=== PATIENT | female | born 1975 | race Native Hawaiian/Other Pacific Islander ===

== ENCOUNTER → 2018-03-09 | Outpatient (CLI) | payer OTHER ==
--- NOTE | 2018-03-09 18:08 | EXE ---
[place] [address] STRESS ECHOCARDIOGRAM Name: MILLERMARIEMARTHA Paz Room: [facility]#: [id number] Admission: 03/09/18 Attend Phys: Anna Castro, Discharge: Date of : 75 Date of Service: 03/09/18 1808 Report #: [id number] THIS REPORT FOR: //name// APPROVED REPORT Study performed: 03/09/2018 11:40:44 Exam: Stress Echocardiogram Indication: Chest pain Patient Location: Out-Patient Stress Nurse: Nga Mccormack RN Supervising Physician: Fercho Noyola MD Status: routine Ht: 5 ft 7 in HR: 77 bpm BP: 155/104 mmHg Medical History Cardiac Risk Factors: FHX of CAD, Tobacco History (Former), HTN Procedure The patient underwent an Exercise Stress Test using the Eagle Protocol. Blood pressure, heart rate, and EKG were monitored. An Echocardiogram was performed by insulator technician in four stages in quad fashion. At peak stress, four selected images were obtained and placed side by side with resting images for comparison. Stress Test Details Stress Test: Exercise stress testing was performed using a Eagle protocol. HR Resting HR: 77 bpm Max Heart Rate (APMHR): 178 bpm Max HR Achieved: 156 bpm Target HR (85% APMHR): 151 bpm % of APMHR: 87 Recovery HR: 96 bpm HR response to stress: Normal HR response to stress BP Resting BP: 155/104 mmHg Max BP: 220/100 mmHg Recovery BP: 152/102 mmHg ECG Resting ECG: Sinus Rhythm, [place] [address] STRESS ECHOCARDIOGRAM Name: EVERETT BHATT Room: [facility]#: [id number] Admission: 03/09/18 Attend Phys: Anna Castro, Discharge: Date of : 75 Date of Service: 03/09/18 1808 Report #: [id number] Stress ECG: Sinus Tachycardia ST Change: None Arrhythmia: None Recovery ECG: Sinus Rhythm, normal EKG Recovery ST Change: None Recovery Arrhythmia: None Clinical Reason for Termination: Maximal effort, Dyspnea Exercise duration: 7 min 17 sec Highest Stage Achieved: Stage 3: 3.4 mph at 14% grade. Exercise capacity: 9.01 METs The patient tolerated standard Eagle protocol exercise without significant symptoms. Stress ECG Conclusion Baseline 12-lead EKG showed sinus rhythm without significant ST or T wave abnormality. EKGs obtained during and post exercise showed sinus rhythm and sinus tachycardia with no significant STsegment or T wave changes when compared baseline. There were no stress-induced arrhythmias. Pre-Stress Echo The resting Echocardiogram showed normal left ventricular contractility with an estimated Ejection Fraction of about 60-65%. Post-Stress Echo The stress Echocardiogram showed normal left ventricular contractility with an estimated Ejection Fraction of about >70%. Clinical No clinical or ECG evidence for ischemia. Conclusion Clinical Response: Non-ischemic Exercise Capacity: Average Stress ECG Response: Non-ischemic Stress Echo Images: Non-ischemic The left ventricle is normal in size and wall thickness in both the rest and stress images. Other Information Study Quality: Good <Conclusion> [place] [address] STRESS ECHOCARDIOGRAM Name: EVERETT BHATT Brandi Room: [facility]#: [id number] Admission: 03/09/18 Attend Phys: Anna Castro, Discharge: Date of : 75 Date of Service: 03/09/181807 Report #: [id number] The left ventricle is normal in size and wall thickness in both the rest and stress images. <ELECTRONICALLY SIGNED> By: Fercho Noyola MD, FACC 03/09/181807 07 07 Fercho Noyola MD, FACC /INF
== END ==
LOC: M.CRD 10:53
DX: I10 Essential (primary) hypertension (principal); R07.9 Chest pain, unspecified; E66.01 Morbid (severe) obesity due to excess calories; I49.3 Ventricular premature depolarization; Z76.89 Persons encountering health services in other specified circumstances

== ENCOUNTER 2020-05-02 09:50 | Inpatient (IN) | payer OTHER, MEDICAID ==
[~2020-05-02] VITALS: Ht 170.2 cm; Wt 125.8 kg
[2020-05-02] VITALS (8 sets, daily range): BP systolic 94–124; BP diastolic 46–65
[2020-05-02] MEDS ORDERED: NORVASC5 M1 PO (10:09)
[2020-05-02] MEDS ORDERED: LOSARTAN-HCTZ1 EAC3 PO (10:09)
[2020-05-02 10:29] LABS: HEMATOCRIT 36.8 % (37.0-47.0); HEMOGLOBIN 12.5 gm/dL (12.0-15.0); MCH 28.9 pg (26.0-34.0); MPV 7.1 fl. (7.2-11.1); NUCLEATED RBCS 0 /100WBC; PLATELET COUNT* 371 thou/uL (150-400); RBC 4.33 mil/uL (4.20-5.00); RDW-CV 13.3 % (10.5-14.5); WBC 9.2 thou/uL (4.0-11.0)
[2020-05-02 10:37] LABS: CALCIUM 8.1 mg/dL (8.5-10.1); CREATININE 1.3 mg/dL (0.6-1.3)
[2020-05-02 10:48] LABS: ALBUMIN 2.9 g/dL (3.4-5.0); TOTAL BILIRUBIN 0.6 mg/dL (<0.1-1.0)
[2020-05-02 10:49] LABS: POTASSIUM 2.8 mmol/L (3.5-5.1)
[2020-05-02 10:52] LABS: ABSOLUTE LYMPHOCYTES 0.2 thou/uL (0.8-5.3); ABSOLUTE MONOCYTES 0.2 thou/uL (0.0-1.2); ABSOLUTE NEUTROPHILS 8.8 thou/uL (1.6-8.1); ANISOCYTOSIS 1+; PLATELET ESTIMATE ADEQUATE; POIKILOCYTOSIS 1+
[2020-05-02 14:24] LABS: CALCIUM 7.8 mg/dL (8.5-10.1); CREATININE 1.3 mg/dL (0.6-1.3)
[2020-05-02 14:27] LABS: MAGNESIUM 2.4 mg/dL (1.8-2.4); PHOSPHORUS* 3.5 mg/dL (2.5-4.9)
[2020-05-02 15:08] LABS: URINE BILIRUBIN NEGATIVE (Negative); URINE BLOOD 3+ (Negative); URINE CLARITY CLEAR; URINE COLOR YELLOW; URINE GLUCOSE-RANDOM NEGATIVE (Negative); URINE KETONES NEGATIVE (Negative); URINE LEUKOCYTES 1+ (Negative); URINE NITRITE NEGATIVE (Negative); URINE PROTEIN NEGATIVE (Negative); URINE UROBILINOGEN 0.2 E.U./dl (0.2-1.0)
[2020-05-02 15:19] LABS: SQUAMOUS >10 Many /LPF (0-3)
[2020-05-02 15:20] LABS: BACTERIA >30 Many /HPF (None Seen); URINE RBC 3-10 Few /HPF (0-2); URINE WBC 0-5 Rare /HPF (0-5)
[2020-05-02 15:21] LABS: CASTS None Seen /LPF (None Seen); CRYSTALS None Seen /LPF (None Seen); MUCUS None Seen strn/LPF (None Seen)
--- NOTE | 2020-05-02 17:14 | EKG ---
[place] [address] ELECTROCARDIOGRAM REPORT Name: EVERETT BHATT Room: [address] ADM IN ..#: [id number] Admission: 05/02/20 Attend Phys: Mayuri Keller Discharge: Date of : 75 Date of Service: 05/02/20 1042 Report #: [id number] THIS REPORT FOR: //name// [facility] ED Test Date: 2020-05-02 Test Time: 10:42:34 Pat Name: EVERETT BHATT Department: Room: [facility] Gender: F Purchasing And Fiscal Clerk: : 1975 Requested By: Fabian Vail Order Number: [id number] MD: Fercho Noyola Measurements Intervals [place] Rate: 98 P: 56 ID: [id number] QRS: 28 QRSD: 106 T: 67 QT: 369 QTc: 472 Interpretive Statements Sinus rhythm Baseline wander in lead(s) II,III,aVF,V3 No previous ECG available for comparison Electronically Signed On 05-02-2020 17:14:34 QC ANALYST by Fercho Noyola [email or web address] <ELECTRONICALLY SIGNED> By: Fercho Noyola MD, FACC 05/02/20 1714 1042 1042 Fercho Noyola MD, FACC /EPI
[2020-05-03 04:00] VITALS: BP 115/70
[2020-05-03 08:30] VITALS: BP 99/59
[2020-05-03 11:25] VITALS: BP 86/45
[2020-05-03 11:41] LABS: ABSOLUTE LYMPHOCYTES 0.5 thou/uL (0.8-5.3); ABSOLUTE MONOCYTES 0.4 thou/uL (0.0-1.2); ABSOLUTE NEUTROPHILS 8.3 thou/uL (1.6-8.1); BASOPHILS 0.1 %; HEMATOCRIT 32.8 % (37.0-47.0); HEMOGLOBIN 10.9 gm/dL (12.0-15.0); LYMPHOCYTES 5.6 %; MCH 28.5 pg (26.0-34.0); MCHC 33.1 g/dL (28.0-37.0); MCV 86.1 fL (80.0-100.0); MONOCYTES 4.3 %; NUCLEATED RBCS 0 /100WBC; PLATELET COUNT* 412 thou/uL (150-400); RBC 3.81 mil/uL (4.20-5.00); RDW-CV 13.4 % (10.5-14.5); WBC 9.2 thou/uL (4.0-11.0)
[2020-05-03 12:06] LABS: ALBUMIN 2.4 g/dL (3.4-5.0); CALCIUM 7.7 mg/dL (8.5-10.1); CREATININE 1.4 mg/dL (0.6-1.3); POTASSIUM 3.9 mmol/L (3.5-5.1); TOTAL BILIRUBIN 0.3 mg/dL (<0.1-1.0); TOTAL PROTEIN 7.1 g/dL (6.4-8.2)
[2020-05-03 15:58] VITALS: BP 105/55
[2020-05-03 20:00] VITALS: BP 101/44
[2020-05-04] VITALS: BP 108/46
[2020-05-04 04:00] VITALS: BP 12/56; BP 125/56
[2020-05-04 05:21] LABS: BE -5.9 mmol/L (-2 to +3); PO2 81.7 mmHg (75.0-100.0); pH 7.333 (7.340-7.450)
[2020-05-04 05:34] LABS: HEMATOCRIT 33.8 % (37.0-47.0); HEMOGLOBIN 11.1 gm/dL (12.0-15.0); MCH 28.3 pg (26.0-34.0); MCHC 32.8 g/dL (28.0-37.0); MPV 7.1 fl. (7.2-11.1); RBC 3.93 mil/uL (4.20-5.00); RDW-CV 13.4 % (10.5-14.5); WBC 10.2 thou/uL (4.0-11.0)
[2020-05-04 05:45] LABS: ALBUMIN 2.5 g/dL (3.4-5.0); CALCIUM 7.8 mg/dL (8.5-10.1); CREATININE 1.1 mg/dL (0.6-1.3); POTASSIUM 4.1 mmol/L (3.5-5.1); TOTAL BILIRUBIN 0.3 mg/dL (<0.1-1.0); TOTAL PROTEIN 7.2 g/dL (6.4-8.2)
[2020-05-04 09:00] VITALS: BP 110/57
[2020-05-04 12:23] VITALS: BP 127/58
[2020-05-04 16:02] VITALS: BP 145/71
[2020-05-04 20:10] VITALS: BP 113/56
[2020-05-05] VITALS: BP 124/62
[2020-05-05 05:00] VITALS: BP 117/65
[2020-05-05 07:50] LABS: HEMATOCRIT 34.5 % (37.0-47.0); HEMOGLOBIN 11.2 gm/dL (12.0-15.0); MCH 27.9 pg (26.0-34.0); MCHC 32.4 g/dL (28.0-37.0); MCV 86.4 fL (80.0-100.0); MPV 6.4 fl. (7.2-11.1); PLATELET COUNT* 499 thou/uL (150-400); RBC 3.99 mil/uL (4.20-5.00); RDW-CV 13.1 % (10.5-14.5); WBC 7.5 thou/uL (4.0-11.0)
[2020-05-05 08:41] LABS: ALBUMIN 2.4 g/dL (3.4-5.0); CALCIUM 7.7 mg/dL (8.5-10.1); CREATININE 0.9 mg/dL (0.6-1.3); MAGNESIUM 2.7 mg/dL (1.8-2.4); POTASSIUM 3.8 mmol/L (3.5-5.1); TOTAL BILIRUBIN 0.3 mg/dL (<0.1-1.0)
[2020-05-05 15:02] VITALS: BP 133/77
[2020-05-05 15:51] LABS: ABSOLUTE LYMPHOCYTES 0.7 thou/uL (0.8-5.3); ABSOLUTE MONOCYTES 0.1 thou/uL (0.0-1.2); ABSOLUTE NEUTROPHILS 6.8 thou/uL (1.6-8.1)
[2020-05-05 15:52] LABS: PLATELET ESTIMATE INCREASED
[2020-05-05 19:24] VITALS: BP 139/92
[2020-05-05 20:20] VITALS: BP 150/90
[2020-05-06] VITALS (102 sets, daily range): BP systolic 54–191; BP diastolic 20–107
[2020-05-06 11:05] LABS: PCO2 35.2 mmHg (35.0-45.0); PO2 63.2 mmHg (75.0-100.0); pH 7.398 (7.340-7.450)
[2020-05-06 16:42] LABS: BE -5.1 mmol/L (-2 to +3); PCO2 46.8 mmHg (35.0-45.0); PO2 80.6 mmHg (75.0-100.0)
[2020-05-06 16:46] LABS: pH 7.281 (7.340-7.450)
[2020-05-06 17:19] LABS: ABSOLUTE LYMPHOCYTES 0.3 thou/uL (0.8-5.3); ABSOLUTE MONOCYTES 0.3 thou/uL (0.0-1.2); ABSOLUTE NEUTROPHILS 9.9 thou/uL (1.6-8.1); BASOPHILS 0.2 %; EOSINOPHILS 0.1 %; HEMOGLOBIN 11.1 gm/dL (12.0-15.0); LYMPHOCYTES 2.9 %; MCH 28.5 pg (26.0-34.0); MCHC 32.6 g/dL (28.0-37.0); MCV 87.2 fL (80.0-100.0); MONOCYTES 2.6 %; MPV 6.7 fl. (7.2-11.1); NUCLEATED RBCS 0 /100WBC; POLYS 94.2 %; RBC 3.91 mil/uL (4.20-5.00); RDW-CV 13.5 % (10.5-14.5); WBC 10.5 thou/uL (4.0-11.0)
[2020-05-06 17:20] LABS: PLATELET COUNT* 303 thou/uL (150-400)
[2020-05-06 17:38] LABS: ALBUMIN 2.1 g/dL (3.4-5.0); CALCIUM 7.2 mg/dL (8.5-10.1); POTASSIUM 3.7 mmol/L (3.5-5.1); TOTAL BILIRUBIN 0.7 mg/dL (<0.1-1.0); TOTAL PROTEIN 6.4 g/dL (6.4-8.2)
[2020-05-06 20:02] LABS: BE -5.2 mmol/L (-2 to +3); PCO2 48.4 mmHg (35.0-45.0); PO2 76.2 mmHg (75.0-100.0)
[2020-05-06 20:04] LABS: pH 7.272 (7.340-7.450)
[2020-05-06 21:18] LABS: BE -3.6 mmol/L (-2 to +3); PCO2 44.1 mmHg (35.0-45.0); PO2 77.1 mmHg (75.0-100.0); pH 7.323 (7.340-7.450)
[2020-05-07] VITALS (30 sets, daily range): BP systolic 105–175; BP diastolic 33–104
[2020-05-07 10:07] LABS: HEMATOCRIT 36.1 % (37.0-47.0); HEMOGLOBIN 11.7 gm/dL (12.0-15.0); MCH 28.4 pg (26.0-34.0); MCHC 32.4 g/dL (28.0-37.0); MCV 87.6 fL (80.0-100.0); MPV 6.6 fl. (7.2-11.1); RBC 4.12 mil/uL (4.20-5.00); RDW-CV 13.6 % (10.5-14.5)
[2020-05-07 10:17] LABS: CALCIUM 7.6 mg/dL (8.5-10.1); CREATININE 1.1 mg/dL (0.6-1.3); POTASSIUM 4.2 mmol/L (3.5-5.1)
[2020-05-07 11:36] LABS: BE 0 mmol/L (-2 to +3); PCO2 40.3 mmHg (35.0-45.0); PO2 103.3 mmHg (75.0-100.0); pH 7.405 (7.340-7.450)
[2020-05-07 17:06] LABS: BE 1.9 mmol/L (-2 to +3); PCO2 40.5 mmHg (35.0-45.0)
--- NOTE | 2020-05-07 17:26 | 2DMMODE ---
[place] [address] 2 D/M-MODE ECHOCARDIOGRAM Name: EVERETT BHATT Room: [address] IN [facility]#: [id number] Admission: 05/02/20 Attend Phys: Mayuri Keller Discharge: Date of : 75 Date of Service: 05/07/20 1726 Report #: [id number] THIS REPORT FOR: cc: Anna Castro DNP, Leopoldine DNP Holkins, John M. MD [facility] ~ APPROVED REPORT Study performed: 05/07/2020 14:28:05 EXAM: Comprehensive 2D, Doppler, and color-flow Echocardiogram Patient Location: In-Patient Room #: [facility] [place] Status: routine BSA: 2.46 HR: 79 bpm BP: 147/46 mmHg Rhythm: NSR Other Information Study Quality: Good Indications Dyspnea 2D Dimensions IVSd: 13.57 (7-11mm) LVOT Diam: 21.77 (18-24mm) LVDd: 40.99 mm PWd: 13.85 (7-11mm) Ascending Ao: 31.98 (22-36mm) LVDs: 28.86 (25-40mm) Aortic Root: 33.82 mm Volumes Left Atrial Volume (Systole) LA ESV Index: 12.80 mL/m2 Aortic Valve AoV Peak Carlos.: 1.55 m/s AO Peak Gr.: 9.64 mmHg LVOT Max P.59 mmHg AO Mean Gr.: 5.38 mmHg LVOT Mean P.51 mmHg LVOT Max V: 1.07 m/s AO V2 VTI: 22.53 cm LVOT Mean V: 0.74 m/s LAZARA (VTI): 2.73 cm2 LVOT V1 VTI: 16.52 [place] [address] 2 D/M-MODE ECHOCARDIOGRAM Name: EVERETT BHATT Room: [address]#: [id number] Admission: 05/02/20 Attend Phys: Mayuri Keller Discharge: Date of : 75 Date of Service: 05/07/20 1726 Report #: [id number] Mitral Valve E/A Ratio: 1.52 MV Decel. Time: 250.70 ms MV E Max Carlos.: 0.76 m/s MV PHT: 72.70 ms MVA (PHT): 3.03 cm2 TDI E/Lateral E': 7.60 E/Medial E': 8.44 Medial E' Carlos.: 0.09 m/s Lateral E' Carlos.: 0.10 m/s Pulmonary Valve PV Peak Carlos.: 1.06 m/s PV Peak Gr.: 4.47 mmHg Tricuspid Valve RAP Estimate: 5.00 mmHg TR Peak Gr.: 25.93 mmHg RVSP: 30.00 mmHg PA Pressure: 30.00 mmHg Left Ventricle The left ventricle is normal size. There is normal LV segmental wall motion. Borderline concentric left ventricular hypertrophy. Left ventricular systolic function is normal. The left ventricular ejection fraction is within the normal range. LVEF is 60-65%. This study is not technically sufficient to allow evaluation of the LV diastolic function. Right Ventricle Right ventricle is mildly dilated. The right ventricular systolic function is normal. Atria The left atrium size is normal. Right atrium is mildly dilated. Aortic Valve The aortic valve is normal in structure. No aortic regurgitation is present. There is no aortic valvular stenosis. Mitral Valve The mitral valve is normal in structure. There is no mitral valve regurgitation noted. No evidence of mitral valve stenosis. Tricuspid Valve The tricuspid valve is normal [place] [address] 2 D/M-MODE ECHOCARDIOGRAM Name: MARIE BHATTYOLAWarren Brandi Room: [address]#: [id number] Admission: 05/02/20 Attend Phys: Mayuri Keller Discharge: Date of : 75 Date of Service: 05/07/20 1726 Report #: [id number] regurgitation. Borderline pulmonary hypertension. Pulmonic Valve The pulmonary valve is normal in structure. There is no pulmonic valvular regurgitation. Great Vessels The aortic root is normal in size. IVC is normal in size and collapses >50% with inspiration. Pericardium There is no pericardial effusion. <Conclusion> The left ventricle is normal size. Borderline concentric left ventricular hypertrophy. Left ventricular systolic function is normal. The left ventricular ejection fraction is within the normal range. LVEF is 60-65%. Right ventricle is mildly dilated. The left atrium size is normal. Right atrium is mildly dilated. The aortic valve is normal in structure. The mitral valve is normal in structure. The tricuspid valve is normal in structure. Mild tricuspid regurgitation. Borderline pulmonary hypertension. IVC is normal in size and collapses >50% with inspiration. There is no pericardial effusion. There is normal LV segmental wall motion. <ELECTRONICALLY SIGNED> By: Judd Sales MD, FACC 05/07/201725 25 25 Judd Sales MD, FACC /INF
[2020-05-07 18:11] LABS: CALCIUM 7.2 mg/dL (8.5-10.1); CREATININE 1.4 mg/dL (0.6-1.3); MAGNESIUM 2.4 mg/dL (1.8-2.4); POTASSIUM 3.8 mmol/L (3.5-5.1)
[2020-05-08] VITALS (29 sets, daily range): BP systolic 85–135; BP diastolic 34–55
[2020-05-08 05:02] LABS: HEMATOCRIT 32.3 % (37.0-47.0); HEMOGLOBIN 10.6 gm/dL (12.0-15.0); MCH 28.7 pg (26.0-34.0); MCHC 32.8 g/dL (28.0-37.0); MCV 87.7 fL (80.0-100.0); MPV 7.9 fl. (7.2-11.1); NUCLEATED RBCS 0 /100WBC; PLATELET COUNT* 231 thou/uL (150-400); RBC 3.68 mil/uL (4.20-5.00); RDW-CV 13.6 % (10.5-14.5); WBC 10.5 thou/uL (4.0-11.0)
[2020-05-08 05:17] LABS: ALBUMIN 2.1 g/dL (3.4-5.0); CREATININE 1.9 mg/dL (0.6-1.3); MAGNESIUM 2.5 mg/dL (1.8-2.4); POTASSIUM 3.6 mmol/L (3.5-5.1); TOTAL BILIRUBIN 0.4 mg/dL (<0.1-1.0)
[2020-05-08 05:22] LABS: PHOSPHORUS* 2.7 mg/dL (2.5-4.9)
[2020-05-08 07:14] LABS: ABSOLUTE LYMPHOCYTES 0.5 thou/uL (0.8-5.3); PLATELET ESTIMATE ADEQUATE
[2020-05-08 08:30] LABS: BE -0.1 mmol/L (-2 to +3); pH 7.335 (7.340-7.450)
[2020-05-08 08:32] LABS: PCO2 50.3 mmHg (35.0-45.0)
[2020-05-08 13:08] LABS: URINE BILIRUBIN NEGATIVE (Negative); URINE BLOOD NEGATIVE (Negative); URINE CLARITY CLEAR; URINE COLOR YELLOW; URINE GLUCOSE-RANDOM NEGATIVE (Negative); URINE KETONES NEGATIVE (Negative); URINE LEUKOCYTES-REFLEX NEGATIVE (Negative); URINE NITRITE-REFLEX NEGATIVE (Negative); URINE PROTEIN TRACE (Negative); URINE UROBILINOGEN 0.2 E.U./dl (0.2-1.0)
[2020-05-08 17:32] LABS: BE -1.4 mmol/L (-2 to +3); PCO2 47.7 mmHg (35.0-45.0); PO2 87.1 mmHg (75.0-100.0); pH 7.332 (7.340-7.450)
[2020-05-08 18:05] LABS: CALCIUM 7.5 mg/dL (8.5-10.1); CREATININE 1.3 mg/dL (0.6-1.3); MAGNESIUM 2.7 mg/dL (1.8-2.4)
[2020-05-09] VITALS (20 sets, daily range): BP systolic 124–165; BP diastolic 52–77
[2020-05-09 05:31] LABS: ABSOLUTE LYMPHOCYTES 0.3 thou/uL (0.8-5.3); ABSOLUTE MONOCYTES 0.5 thou/uL (0.0-1.2); ABSOLUTE NEUTROPHILS 9.3 thou/uL (1.6-8.1); BASOPHILS 0.5 %; HEMATOCRIT 30.4 % (37.0-47.0); LYMPHOCYTES 2.5 %; MCH 28.7 pg (26.0-34.0); MCHC 32.9 g/dL (28.0-37.0); MCV 87.4 fL (80.0-100.0); MONOCYTES 5.3 %; MPV 7.8 fl. (7.2-11.1); NUCLEATED RBCS 0 /100WBC; PLATELET COUNT* 196 thou/uL (150-400); POLYS 91.7 %; RBC 3.48 mil/uL (4.20-5.00); WBC 10.2 thou/uL (4.0-11.0)
[2020-05-09 05:57] LABS: ALBUMIN 2.2 g/dL (3.4-5.0); CALCIUM 8.1 mg/dL (8.5-10.1); CREATININE 1.1 mg/dL (0.6-1.3); POTASSIUM 4.3 mmol/L (3.5-5.1); TOTAL BILIRUBIN 0.4 mg/dL (<0.1-1.0); TOTAL PROTEIN 5.9 g/dL (6.4-8.2)
[2020-05-09 08:25] LABS: BE 2.6 mmol/L (-2 to +3); PCO2 49.1 mmHg (35.0-45.0); PO2 70.2 mmHg (75.0-100.0); pH 7.379 (7.340-7.450)
[2020-05-09 17:26] LABS: CALCIUM 7.6 mg/dL (8.5-10.1); CREATININE 1.2 mg/dL (0.6-1.3); MAGNESIUM 2.5 mg/dL (1.8-2.4); POTASSIUM 4.6 mmol/L (3.5-5.1)
[2020-05-10] VITALS (39 sets, daily range): BP systolic 143–223; BP diastolic 59–112
[2020-05-10 05:24] LABS: ABSOLUTE LYMPHOCYTES 0.3 thou/uL (0.8-5.3); ABSOLUTE MONOCYTES 0.7 thou/uL (0.0-1.2); ABSOLUTE NEUTROPHILS 10.7 thou/uL (1.6-8.1); BASOPHILS 0.3 %; HEMATOCRIT 30.2 % (37.0-47.0); HEMOGLOBIN 9.8 gm/dL (12.0-15.0); LYMPHOCYTES 2.4 %; MCH 28.5 pg (26.0-34.0); MCHC 32.4 g/dL (28.0-37.0); MONOCYTES 5.8 %; MPV 8.8 fl. (7.2-11.1); NUCLEATED RBCS 0 /100WBC; PLATELET COUNT* 197 thou/uL (150-400); POLYS 91.5 %; RBC 3.44 mil/uL (4.20-5.00); RDW-CV 13.7 % (10.5-14.5); WBC 11.7 thou/uL (4.0-11.0)
[2020-05-10 05:37] LABS: PHOSPHORUS* 3.1 mg/dL (2.5-4.9)
[2020-05-10 05:42] LABS: ALBUMIN 2.4 g/dL (3.4-5.0); CALCIUM 8.3 mg/dL (8.5-10.1); CREATININE 1.2 mg/dL (0.6-1.3); MAGNESIUM 2.9 mg/dL (1.8-2.4); POTASSIUM 4.3 mmol/L (3.5-5.1); TOTAL BILIRUBIN 0.5 mg/dL (<0.1-1.0)
[2020-05-10 08:06] LABS: BE 0.3 mmol/L (-2 to +3); PCO2 40.3 mmHg (35.0-45.0)
[2020-05-10 17:29] LABS: BE 2.3 mmol/L (-2 to +3); PCO2 35.2 mmHg (35.0-45.0); PO2 74.3 mmHg (75.0-100.0)
[2020-05-10 18:03] LABS: POTASSIUM 4.3 mmol/L (3.5-5.1)
[2020-05-11] VITALS (35 sets, daily range): BP systolic 140–189; BP diastolic 47–93
[2020-05-11 03:29] LABS: ABSOLUTE BASOPHILS 0.1 thou/uL (0.0-0.2); ABSOLUTE LYMPHOCYTES 0.2 thou/uL (0.8-5.3); ABSOLUTE MONOCYTES 0.7 thou/uL (0.0-1.2); ABSOLUTE NEUTROPHILS 9.5 thou/uL (1.6-8.1); BASOPHILS 1.1 %; HEMATOCRIT 34.2 % (37.0-47.0); HEMOGLOBIN 11.2 gm/dL (12.0-15.0); LYMPHOCYTES 1.9 %; MCH 28.6 pg (26.0-34.0); MCHC 32.8 g/dL (28.0-37.0); MONOCYTES 6.4 %; MPV 8.4 fl. (7.2-11.1); NUCLEATED RBCS 0 /100WBC; PLATELET COUNT* 204 thou/uL (150-400); POLYS 90.6 %; RBC 3.93 mil/uL (4.20-5.00); RDW-CV 13.3 % (10.5-14.5); WBC 10.5 thou/uL (4.0-11.0)
[2020-05-11 03:48] LABS: PHOSPHORUS* 3.6 mg/dL (2.5-4.9)
[2020-05-11 03:53] LABS: ALBUMIN 2.7 g/dL (3.4-5.0); CALCIUM 8.2 mg/dL (8.5-10.1); CREATININE 1.1 mg/dL (0.6-1.3); MAGNESIUM 2.6 mg/dL (1.8-2.4); POTASSIUM 4.3 mmol/L (3.5-5.1); TOTAL BILIRUBIN 0.7 mg/dL (<0.1-1.0); TOTAL PROTEIN 6.3 g/dL (6.4-8.2)
[2020-05-11 08:10] LABS: BE 5.1 mmol/L (-2 to +3); PCO2 37.1 mmHg (35.0-45.0); pH 7.501 (7.340-7.450)
[2020-05-11 08:17] LABS: PO2 58.7 mmHg (75.0-100.0)
[2020-05-11 16:43] LABS: CREATININE 0.9 mg/dL (0.6-1.3); POTASSIUM 4.5 mmol/L (3.5-5.1)
[2020-05-11 16:57] LABS: BE 6.1 mmol/L (-2 to +3); PCO2 38.8 mmHg (35.0-45.0); pH 7.501 (7.340-7.450)
[2020-05-12] VITALS (47 sets, daily range): BP systolic 123–184; BP diastolic 52–88
[2020-05-12 04:45] LABS: HEMOGLOBIN 11.6 gm/dL (12.0-15.0); MCHC 32.1 g/dL (28.0-37.0); MCV 87.4 fL (80.0-100.0); MPV 8.7 fl. (7.2-11.1); NUCLEATED RBCS 0 /100WBC; PLATELET COUNT* 235 thou/uL (150-400); RBC 4.12 mil/uL (4.20-5.00); RDW-CV 13.5 % (10.5-14.5); WBC 9.4 thou/uL (4.0-11.0)
[2020-05-12 05:14] LABS: ALBUMIN 2.6 g/dL (3.4-5.0); CALCIUM 7.8 mg/dL (8.5-10.1); CREATININE 0.9 mg/dL (0.6-1.3); MAGNESIUM 2.5 mg/dL (1.8-2.4); POTASSIUM 4.8 mmol/L (3.5-5.1); TOTAL BILIRUBIN 0.7 mg/dL (<0.1-1.0); TOTAL PROTEIN 6.4 g/dL (6.4-8.2)
[2020-05-12 05:53] LABS: PHOSPHORUS* 3.8 mg/dL (2.5-4.9)
[2020-05-12 06:38] LABS: ABSOLUTE LYMPHOCYTES 0.6 thou/uL (0.8-5.3); ABSOLUTE MONOCYTES 0.4 thou/uL (0.0-1.2); ABSOLUTE NEUTROPHILS 8.5 thou/uL (1.6-8.1); PLATELET ESTIMATE ADEQUATE
[2020-05-12 12:15] LABS: BE 4.8 mmol/L (-2 to +3); PCO2 44.9 mmHg (35.0-45.0); PO2 74.9 mmHg (75.0-100.0); pH 7.438 (7.340-7.450)
[2020-05-12 12:53] LABS: URINE BILIRUBIN NEGATIVE (Negative); URINE BLOOD 2+ (Negative); URINE CLARITY CLEAR; URINE COLOR YELLOW; URINE GLUCOSE-RANDOM 1+ (Negative); URINE KETONES NEGATIVE (Negative); URINE LEUKOCYTES-REFLEX NEGATIVE (Negative); URINE NITRITE-REFLEX NEGATIVE (Negative); URINE PROTEIN NEGATIVE (Negative); URINE SPECIFIC GRAVITY 1.015 (1.005-1.030); URINE UROBILINOGEN 0.2 E.U./dl (0.2-1.0)
[2020-05-12 13:01] LABS: SQUAMOUS 0-3 Few /LPF (0-3)
[2020-05-12 13:03] LABS: BACTERIA-REFLEX 1-9 Few /HPF (None Seen); CASTS None Seen /LPF (None Seen); CRYSTALS None Seen /LPF (None Seen); MUCUS None Seen strn/LPF (None Seen); URINE RBC 3-10 Few /HPF (0-2); URINE WBC-REFLEX None Seen /HPF (0-5)
[2020-05-13] VITALS (51 sets, daily range): BP systolic 69–183; BP diastolic 31–93
[2020-05-13 04:16] LABS: ABSOLUTE LYMPHOCYTES 0.3 thou/uL (0.8-5.3); ABSOLUTE MONOCYTES 0.8 thou/uL (0.0-1.2); ABSOLUTE NEUTROPHILS 8.5 thou/uL (1.6-8.1); HEMATOCRIT 36.7 % (37.0-47.0); HEMOGLOBIN 11.9 gm/dL (12.0-15.0); LYMPHOCYTES 3.1 %; MCH 28.1 pg (26.0-34.0); MCHC 32.4 g/dL (28.0-37.0); MCV 86.8 fL (80.0-100.0); MONOCYTES 8.6 %; MPV 8.2 fl. (7.2-11.1); NUCLEATED RBCS 0 /100WBC; PLATELET COUNT* 261 thou/uL (150-400); POLYS 88.3 %; RBC 4.23 mil/uL (4.20-5.00); RDW-CV 13.2 % (10.5-14.5); WBC 9.7 thou/uL (4.0-11.0)
[2020-05-13 04:34] LABS: ALBUMIN 2.6 g/dL (3.4-5.0); CALCIUM 8.1 mg/dL (8.5-10.1); CREATININE 0.7 mg/dL (0.6-1.3); MAGNESIUM 2.3 mg/dL (1.8-2.4); POTASSIUM 5.5 mmol/L (3.5-5.1); TOTAL BILIRUBIN 0.8 mg/dL (<0.1-1.0)
[2020-05-13 08:07] LABS: BE 2.3 mmol/L (-2 to +3); PCO2 45.8 mmHg (35.0-45.0); pH 7.399 (7.340-7.450)
[2020-05-14] VITALS (47 sets, daily range): BP systolic 97–152; BP diastolic 40–81
[2020-05-14 05:55] LABS: ABSOLUTE LYMPHOCYTES 0.4 thou/uL (0.8-5.3); ABSOLUTE MONOCYTES 1.1 thou/uL (0.0-1.2); ABSOLUTE NEUTROPHILS 9.2 thou/uL (1.6-8.1); BASOPHILS 0.1 %; HEMATOCRIT 37.6 % (37.0-47.0); HEMOGLOBIN 12.3 gm/dL (12.0-15.0); LYMPHOCYTES 3.5 %; MCH 28.5 pg (26.0-34.0); MCHC 32.8 g/dL (28.0-37.0); MCV 86.9 fL (80.0-100.0); MONOCYTES 10.2 %; MPV 8.3 fl. (7.2-11.1); NUCLEATED RBCS 0 /100WBC; PLATELET COUNT* 315 thou/uL (150-400); POLYS 86.2 %; RBC 4.32 mil/uL (4.20-5.00); RDW-CV 13.3 % (10.5-14.5); WBC 10.7 thou/uL (4.0-11.0)
[2020-05-14 06:13] LABS: ALBUMIN 2.4 g/dL (3.4-5.0); CALCIUM 7.8 mg/dL (8.5-10.1); CREATININE 0.7 mg/dL (0.6-1.3); MAGNESIUM 2.3 mg/dL (1.8-2.4); POTASSIUM 5.1 mmol/L (3.5-5.1); TOTAL BILIRUBIN 0.7 mg/dL (<0.1-1.0); TOTAL PROTEIN 6.2 g/dL (6.4-8.2)
[2020-05-14 08:38] LABS: BE 1.7 mmol/L (-2 to +3); PCO2 44.9 mmHg (35.0-45.0); PO2 81.1 mmHg (75.0-100.0); pH 7.397 (7.340-7.450)
[2020-05-14 17:09] LABS: BE 1.7 mmol/L (-2 to +3); PCO2 41.5 mmHg (35.0-45.0); PO2 123.7 mmHg (75.0-100.0)
[2020-05-14 18:04] LABS: CALCIUM 7.7 mg/dL (8.5-10.1); CREATININE 0.7 mg/dL (0.6-1.3); MAGNESIUM 2.4 mg/dL (1.8-2.4); POTASSIUM 4.8 mmol/L (3.5-5.1)
[2020-05-15] VITALS (49 sets, daily range): BP systolic 105–169; BP diastolic 50–74
[2020-05-15 04:33] LABS: ABSOLUTE BASOPHILS 0.1 thou/uL (0.0-0.2); ABSOLUTE LYMPHOCYTES 0.4 thou/uL (0.8-5.3); ABSOLUTE MONOCYTES 1.3 thou/uL (0.0-1.2); BASOPHILS 0.6 %; EOSINOPHILS 0.1 %; HEMATOCRIT 36.6 % (37.0-47.0); HEMOGLOBIN 12.2 gm/dL (12.0-15.0); LYMPHOCYTES 3.6 %; MCH 28.6 pg (26.0-34.0); MCHC 33.2 g/dL (28.0-37.0); MCV 86.2 fL (80.0-100.0); MPV 7.8 fl. (7.2-11.1); NUCLEATED RBCS 0 /100WBC; PLATELET COUNT* 359 thou/uL (150-400); POLYS 83.7 %; RBC 4.25 mil/uL (4.20-5.00); RDW-CV 13.3 % (10.5-14.5); WBC 10.8 thou/uL (4.0-11.0)
[2020-05-15 05:28] LABS: ALBUMIN 2.5 g/dL (3.4-5.0); CALCIUM 7.6 mg/dL (8.5-10.1); CREATININE 0.7 mg/dL (0.6-1.3); MAGNESIUM 2.6 mg/dL (1.8-2.4); POTASSIUM 5.2 mmol/L (3.5-5.1); TOTAL BILIRUBIN 0.6 mg/dL (<0.1-1.0); TOTAL PROTEIN 6.3 g/dL (6.4-8.2)
[2020-05-15 10:16] LABS: BE 2.9 mmol/L (-2 to +3); PCO2 43.9 mmHg (35.0-45.0); PO2 79.4 mmHg (75.0-100.0)
[2020-05-16] VITALS (29 sets, daily range): BP systolic 98–149; BP diastolic 41–78
[2020-05-16 04:50] LABS: HEMATOCRIT 36.2 % (37.0-47.0); HEMOGLOBIN 11.9 gm/dL (12.0-15.0); MCH 28.4 pg (26.0-34.0); MPV 7.6 fl. (7.2-11.1); NUCLEATED RBCS 0 /100WBC; PLATELET COUNT* 318 thou/uL (150-400); RBC 4.21 mil/uL (4.20-5.00); RDW-CV 13.4 % (10.5-14.5); WBC 7.7 thou/uL (4.0-11.0)
[2020-05-16 05:18] LABS: ALBUMIN 2.6 g/dL (3.4-5.0); CALCIUM 7.8 mg/dL (8.5-10.1); CREATININE 0.7 mg/dL (0.6-1.3); MAGNESIUM 2.5 mg/dL (1.8-2.4); POTASSIUM 4.6 mmol/L (3.5-5.1); TOTAL BILIRUBIN 0.7 mg/dL (<0.1-1.0); TOTAL PROTEIN 6.4 g/dL (6.4-8.2)
[2020-05-16 06:50] LABS: ABSOLUTE LYMPHOCYTES 0.7 thou/uL (0.8-5.3); ABSOLUTE MONOCYTES 1.2 thou/uL (0.0-1.2); ABSOLUTE NEUTROPHILS 5.9 thou/uL (1.6-8.1); PLATELET ESTIMATE ADEQUATE
[2020-05-16 12:47] LABS: BE 5.6 mmol/L (-2 to +3); PCO2 44.5 mmHg (35.0-45.0); PO2 78.2 mmHg (75.0-100.0); pH 7.451 (7.340-7.450)
[2020-05-17] VITALS (30 sets, daily range): BP systolic 105–185; BP diastolic 49–77
[2020-05-17 04:09] LABS: ABSOLUTE LYMPHOCYTES 0.1 thou/uL (0.8-5.3); ABSOLUTE MONOCYTES 0.7 thou/uL (0.0-1.2); ABSOLUTE NEUTROPHILS 7.2 thou/uL (1.6-8.1); BASOPHILS 0.3 %; HEMOGLOBIN 11.7 gm/dL (12.0-15.0); LYMPHOCYTES 1.9 %; MCH 28.4 pg (26.0-34.0); MCHC 32.5 g/dL (28.0-37.0); MCV 87.3 fL (80.0-100.0); MONOCYTES 8.5 %; MPV 7.4 fl. (7.2-11.1); NUCLEATED RBCS 0 /100WBC; PLATELET COUNT* 315 thou/uL (150-400); POLYS 89.3 %; RBC 4.12 mil/uL (4.20-5.00); RDW-CV 13.7 % (10.5-14.5); WBC 8.1 thou/uL (4.0-11.0)
[2020-05-17 04:23] LABS: ALBUMIN 2.6 g/dL (3.4-5.0); CALCIUM 8.1 mg/dL (8.5-10.1); CREATININE 0.7 mg/dL (0.6-1.3); MAGNESIUM 2.7 mg/dL (1.8-2.4); POTASSIUM 4.6 mmol/L (3.5-5.1); TOTAL BILIRUBIN 0.8 mg/dL (<0.1-1.0)
[2020-05-17 16:30] LABS: BE 2.4 mmol/L (-2 to +3); PCO2 36.2 mmHg (35.0-45.0); PO2 77.2 mmHg (75.0-100.0); pH 7.471 (7.340-7.450)
[2020-05-18] VITALS (34 sets, daily range): BP systolic 109–168; BP diastolic 56–90
[2020-05-18 05:35] LABS: ABSOLUTE LYMPHOCYTES 0.3 thou/uL (0.8-5.3); ABSOLUTE NEUTROPHILS 13.2 thou/uL (1.6-8.1); BASOPHILS 0.1 %; HEMATOCRIT 38.3 % (37.0-47.0); HEMOGLOBIN 12.2 gm/dL (12.0-15.0); LYMPHOCYTES 1.7 %; MCHC 31.9 g/dL (28.0-37.0); MCV 87.8 fL (80.0-100.0); MONOCYTES 6.7 %; MPV 7.8 fl. (7.2-11.1); NUCLEATED RBCS 0 /100WBC; POLYS 91.5 %; RBC 4.36 mil/uL (4.20-5.00); RDW-CV 13.8 % (10.5-14.5); WBC 14.4 thou/uL (4.0-11.0)
[2020-05-18 05:38] LABS: PLATELET COUNT* 508 thou/uL (150-400)
[2020-05-18 05:49] LABS: ALBUMIN 2.9 g/dL (3.4-5.0); CALCIUM 8.4 mg/dL (8.5-10.1); CREATININE 0.6 mg/dL (0.6-1.3); MAGNESIUM 2.8 mg/dL (1.8-2.4); POTASSIUM 3.7 mmol/L (3.5-5.1); TOTAL BILIRUBIN 1.4 mg/dL (<0.1-1.0); TOTAL PROTEIN 6.9 g/dL (6.4-8.2)
[2020-05-18 10:32] LABS: PCO2 38.8 mmHg (35.0-45.0); PO2 64.7 mmHg (75.0-100.0); pH 7.459 (7.340-7.450)
[2020-05-19] VITALS (33 sets, daily range): BP systolic 133–193; BP diastolic 63–103
[2020-05-19 05:48] LABS: HEMOGLOBIN 12.1 gm/dL (12.0-15.0); MCH 28.3 pg (26.0-34.0); MCHC 31.9 g/dL (28.0-37.0); MCV 88.8 fL (80.0-100.0); MPV 7.8 fl. (7.2-11.1); RBC 4.28 mil/uL (4.20-5.00); WBC 12.4 thou/uL (4.0-11.0)
[2020-05-19 06:07] LABS: HEPATITIS B SURFACE AG Negative (Negative)
[2020-05-19 06:38] LABS: ALBUMIN 2.9 g/dL (3.4-5.0); CALCIUM 8.2 mg/dL (8.5-10.1); CREATININE 0.6 mg/dL (0.6-1.3); MAGNESIUM 2.7 mg/dL (1.8-2.4); POTASSIUM 3.2 mmol/L (3.5-5.1); TOTAL BILIRUBIN 1.1 mg/dL (<0.1-1.0); TOTAL PROTEIN 6.7 g/dL (6.4-8.2)
--- NOTE | 2020-05-19 13:37 | CON ---
[address] [address] CONSULTATION Name: EVERETT BHATT Room: [address] IN .R.#: [id number] Admission: 05/02/20 Attend Phys: eSra Diamond Discharge: Date of : 75 Report #: [id number] THIS REPORT FOR: //name// cc: Anna Castro DNP, Leopoldine DNP ~ DATE OF SERVICE: 05/18/2020 Please note at the time of this dictation, the patient was seen and physically examined by myself. HISTORY OF PRESENT ILLNESS: This 45-year-old female who presented to the Emergency Room on the day of admission with having about a week's history of having increasing shortness of breath, cough and congestion with a lot of mucus production and she was tested positive for COVID at that particular time. She eventually got significantly worse requiring Emergency Room visit in which she was severely hypoxic, requiring 70% FiO2 on BiPAP and then subsequently she was intubated and on a ventilator. She recently came off yesterday was extubated. She is not verbally communicative at this time, so all the history and physical was obtained from the chart as well as from the nurse. GI was consulted for elevated lipase, which is only indicated via labs, it has trended upward since the day of admission. The day after admission from being 253 up to 1683, it is difficult to assess the patient as to whether or not she is having any discomfort. ALLERGIES: No known drug allergies. MEDICATIONS: From home include losartan and Norvasc. PAST MEDICAL HISTORY: Hypertension. PAST SURGICAL HISTORY: None. FAMILY HISTORY: Noncontributory. SOCIAL HISTORY: Denies any alcohol, tobacco or illegal drug use. REVIEW OF SYSTEMS: Twelve-point review of systems is essentially negative except what is mentioned in the HPI. PHYSICAL EXAMINATION: VITAL SIGNS: Temperature 37.2, pulse 95, respirations 22, blood pressure 104/57. HEART: [place] [address] CONSULTATION Name: EVERETT BHATT Room: [address] IN [facility].#: [id number] Admission: 05/02/20 Attend Phys: Sera Diamond Discharge: Date of : 75 Report #: [id number] LUNGS: Diminished bilaterally. ABDOMEN: Morbidly obese. The patient's weight is 306 pounds. LABORATORY DATA: Hemoglobin is 14.4, white count is 14.4, platelets is 508. Total bilirubin is 1.4, alkaline phosphatase 71, ALT 135, AST is 61. Again, her lipase on 05/08/2020 was 253, yesterday was 667 and went up today to 1683. She has had no imaging performed at this time. We are waiting on an abdominal ultrasound. Her triglycerides were normal as well. GFR was 108. IMPRESSION: 1. Elevated lipase. 2. Elevated LFTs. 3. Morbid obesity. 4. Respiratory failure secondary to COVID, requiring respiratory support. 5. Leukocytosis. PLAN: 1. Increase her IV fluids to 150 mL an hour. 2. Ultrasound results are pending. 3. Acute hepatitis panel. 4. Further recommendations to be made once the above have been noted. Thank you for allowing us to participate in this patient's care. Please do not hesitate to call with any questions in regard to this consult. <ELECTRONICALLY SIGNED> By: Rich Jung DO 05/19/20 1337 1256 1324Rich Jung DO /nt
[2020-05-20] VITALS (35 sets, daily range): BP systolic 128–166; BP diastolic 70–93
[2020-05-20 05:03] LABS: HEMOGLOBIN 11.5 gm/dL (12.0-15.0); MCH 28.6 pg (26.0-34.0); MCV 89.3 fL (80.0-100.0); MPV 7.6 fl. (7.2-11.1); RBC 4.03 mil/uL (4.20-5.00); RDW-CV 14.5 % (10.5-14.5); WBC 10.3 thou/uL (4.0-11.0)
[2020-05-20 05:22] LABS: ALBUMIN 2.4 g/dL (3.4-5.0); CALCIUM 8.1 mg/dL (8.5-10.1); CREATININE 0.6 mg/dL (0.6-1.3); MAGNESIUM 2.5 mg/dL (1.8-2.4); TOTAL BILIRUBIN 0.9 mg/dL (<0.1-1.0); TOTAL PROTEIN 6.5 g/dL (6.4-8.2)
[2020-05-20 10:28] LABS: URINE BLOOD TRACE (Negative); URINE CLARITY CLEAR; URINE COLOR YELLOW; URINE GLUCOSE-RANDOM NEGATIVE (Negative); URINE KETONES 1+ (Negative); URINE LEUKOCYTES-REFLEX NEGATIVE (Negative); URINE NITRITE-REFLEX NEGATIVE (Negative); URINE PROTEIN TRACE (Negative); URINE UROBILINOGEN 0.2 E.U./dl (0.2-1.0)
[2020-05-20 10:29] LABS: ICTOTEST (BILI CONFIRMATORY) Negative (Negative); URINE BILIRUBIN 1+ (Negative)
[2020-05-21] VITALS (20 sets, daily range): BP systolic 128–157; BP diastolic 60–131
[2020-05-21 03:48] LABS: HEMATOCRIT 35.3 % (37.0-47.0); HEMOGLOBIN 11.4 gm/dL (12.0-15.0); MCH 28.9 pg (26.0-34.0); MCHC 32.4 g/dL (28.0-37.0); MCV 89.3 fL (80.0-100.0); MPV 7.7 fl. (7.2-11.1); RBC 3.96 mil/uL (4.20-5.00); RDW-CV 15.1 % (10.5-14.5); WBC 7.9 thou/uL (4.0-11.0)
[2020-05-21 04:05] LABS: CALCIUM 8.4 mg/dL (8.5-10.1); CREATININE 0.7 mg/dL (0.6-1.3); MAGNESIUM 2.5 mg/dL (1.8-2.4)
[2020-05-22] VITALS (7 sets, daily range): BP systolic 130–165; BP diastolic 60–88
[2020-05-22 05:07] LABS: ABSOLUTE LYMPHOCYTES 0.8 thou/uL (0.8-5.3); ABSOLUTE MONOCYTES 0.7 thou/uL (0.0-1.2); ABSOLUTE NEUTROPHILS 6.4 thou/uL (1.6-8.1); BASOPHILS 0.5 %; EOSINOPHILS 0.3 %; HEMATOCRIT 35.5 % (37.0-47.0); HEMOGLOBIN 11.5 gm/dL (12.0-15.0); LYMPHOCYTES 10.2 %; MCH 29.1 pg (26.0-34.0); MCHC 32.5 g/dL (28.0-37.0); MCV 89.7 fL (80.0-100.0); MONOCYTES 8.6 %; MPV 7.8 fl. (7.2-11.1); NUCLEATED RBCS 0 /100WBC; PLATELET COUNT* 256 thou/uL (150-400); POLYS 80.4 %; RBC 3.96 mil/uL (4.20-5.00); WBC 7.9 thou/uL (4.0-11.0)
[2020-05-22 05:22] LABS: PHOSPHORUS* 3.3 mg/dL (2.5-4.9)
[2020-05-22 05:35] LABS: ALBUMIN 2.7 g/dL (3.4-5.0); CALCIUM 8.6 mg/dL (8.5-10.1); CREATININE 0.6 mg/dL (0.6-1.3); MAGNESIUM 2.5 mg/dL (1.8-2.4); POTASSIUM 3.6 mmol/L (3.5-5.1); TOTAL BILIRUBIN 0.6 mg/dL (<0.1-1.0); TOTAL PROTEIN 6.5 g/dL (6.4-8.2)
[2020-05-23] VITALS: BP 147/89
[2020-05-23 04:00] VITALS: BP 147/90
[2020-05-23 05:43] LABS: HEMATOCRIT 33.4 % (37.0-47.0); HEMOGLOBIN 10.8 gm/dL (12.0-15.0); MCH 29.1 pg (26.0-34.0); MCHC 32.2 g/dL (28.0-37.0); MCV 90.6 fL (80.0-100.0); MPV 7.7 fl. (7.2-11.1); RBC 3.69 mil/uL (4.20-5.00); RDW-CV 14.8 % (10.5-14.5); WBC 6.9 thou/uL (4.0-11.0)
[2020-05-23 05:58] LABS: ALBUMIN 2.5 g/dL (3.4-5.0); CALCIUM 8.2 mg/dL (8.5-10.1); CREATININE 0.6 mg/dL (0.6-1.3); MAGNESIUM 2.4 mg/dL (1.8-2.4); POTASSIUM 3.9 mmol/L (3.5-5.1); TOTAL BILIRUBIN 0.5 mg/dL (<0.1-1.0); TOTAL PROTEIN 6.1 g/dL (6.4-8.2)
[2020-05-23 11:30] VITALS: BP 148/87
[2020-05-23 16:30] VITALS: BP 137/79
[2020-05-23 22:00] VITALS: BP 149/84
[2020-05-24] VITALS (20 sets, daily range): BP systolic 114–156; BP diastolic 57–87
[2020-05-24 03:24] LABS: ABSOLUTE BASOPHILS 0.1 thou/uL (0.0-0.2); ABSOLUTE EOSINOPHILS 0.1 thou/uL (0.0-0.7); ABSOLUTE LYMPHOCYTES 0.8 thou/uL (0.8-5.3); ABSOLUTE MONOCYTES 0.7 thou/uL (0.0-1.2); ABSOLUTE NEUTROPHILS 6.7 thou/uL (1.6-8.1); BASOPHILS 0.7 %; EOSINOPHILS 0.7 %; HEMATOCRIT 34.6 % (37.0-47.0); HEMOGLOBIN 11.2 gm/dL (12.0-15.0); LYMPHOCYTES 9.6 %; MCH 29.2 pg (26.0-34.0); MCHC 32.4 g/dL (28.0-37.0); MCV 90.2 fL (80.0-100.0); MONOCYTES 8.3 %; MPV 7.7 fl. (7.2-11.1); NUCLEATED RBCS 0 /100WBC; PLATELET COUNT* 250 thou/uL (150-400); POLYS 80.7 %; RBC 3.83 mil/uL (4.20-5.00); WBC 8.3 thou/uL (4.0-11.0)
[2020-05-24 03:51] LABS: ALBUMIN 2.7 g/dL (3.4-5.0); CALCIUM 8.3 mg/dL (8.5-10.1); CREATININE 0.7 mg/dL (0.6-1.3); MAGNESIUM 2.3 mg/dL (1.8-2.4); POTASSIUM 3.6 mmol/L (3.5-5.1); TOTAL BILIRUBIN 0.5 mg/dL (<0.1-1.0); TOTAL PROTEIN 6.5 g/dL (6.4-8.2)
[2020-05-24 04:30] LABS: CHOLESTEROL 231 mg/dL (<200); HDL CHOLESTEROL 34 mg/dL (>40); LDL CHOLESTEROL 162 mg/dL (<100); TC:HDL 6.8 Ratio (Not establshd); TRIGLYCERIDE 175 mg/dL (<150); VLDL 35 mg/dL (<40)
[2020-05-24 04:33] LABS: SERUM ASSESSMENT CLEAR
[2020-05-25] VITALS (11 sets, daily range): BP systolic 112–145; BP diastolic 56–80
[2020-05-25 02:06] LABS: GLYCOHEMOGLOBIN (HGB A1C) 7.1 % (4.8-5.6)
[2020-05-25 04:35] LABS: ABSOLUTE EOSINOPHILS 0.1 thou/uL (0.0-0.7); ABSOLUTE LYMPHOCYTES 0.9 thou/uL (0.8-5.3); ABSOLUTE MONOCYTES 0.5 thou/uL (0.0-1.2); ABSOLUTE NEUTROPHILS 4.4 thou/uL (1.6-8.1); BASOPHILS 0.6 %; EOSINOPHILS 0.9 %; HEMATOCRIT 33.2 % (37.0-47.0); HEMOGLOBIN 10.6 gm/dL (12.0-15.0); LYMPHOCYTES 15.3 %; MCH 29.2 pg (26.0-34.0); MCV 91.2 fL (80.0-100.0); MONOCYTES 7.8 %; MPV 7.5 fl. (7.2-11.1); NUCLEATED RBCS 0 /100WBC; PLATELET COUNT* 220 thou/uL (150-400); POLYS 75.4 %; RBC 3.64 mil/uL (4.20-5.00); RDW-CV 15.5 % (10.5-14.5); WBC 5.8 thou/uL (4.0-11.0)
[2020-05-25 06:42] LABS: ALBUMIN 2.6 g/dL (3.4-5.0); CALCIUM 8.4 mg/dL (8.5-10.1); CREATININE 0.7 mg/dL (0.6-1.3); MAGNESIUM 2.2 mg/dL (1.8-2.4); POTASSIUM 3.5 mmol/L (3.5-5.1); TOTAL BILIRUBIN 0.5 mg/dL (<0.1-1.0); TOTAL PROTEIN 5.8 g/dL (6.4-8.2)
[2020-05-25 07:30] LABS: PHOSPHORUS* 3.6 mg/dL (2.5-4.9)
--- NOTE | 2020-05-25 13:44 | 2DMMODE ---
[place] [address] 2 D/M-MODE ECHOCARDIOGRAM Name: EVERETT BHATT Brandi Room: [address] ADM IN [facility]#: [id number] Admission: 05/02/20 Attend Phys: Mayuri Keller Discharge: Date of : 75 Date of Service: 05/25/20 1343 Report #: [id number] THIS REPORT FOR: cc: Anna Castro DNP, Leopoldine DNP Blick, David R. MD [facility] ~ APPROVED REPORT Study performed: 05/25/2020 10:14:52 EXAM: Limited 2D Echocardiogram Patient Location: In-Patient Room #: [facility] Status: routine BSA: 2.33 HR: 72 bpm BP: 140/65 mmHg Rhythm: NSR Other Information Study Quality: Good Indications CVA/TIA Echo Enhancing Agent Indication: Rule out Shunt Agent(s) / Amount(s) Used: Agitated Saline 10 cc Left Ventricle The left ventricle is normal size. There is normal LV segmental wall motion. There is normal left ventricular wall thickness. The left ventricular systolic function is normal. The left ventricular ejection fraction is within the normal range. LVEF is 60-65%. Right Ventricle The right ventricle is normal size. The right ventricular systolic function is normal. Atria The left atrium size is normal. The interatrial septum is intact with no evidence for an atrial septal defect. The right atrium size is normal[place] [address] 2 D/M-MODE ECHOCARDIOGRAM Name: MARIE BHATTYOLAWarren Brandi Room: [address] IN ..#: [id number] Admission: 05/02/20 Attend Phys: Mayuri Keller Discharge: Date of : 75 Date of Service: 05/25/20 1343 Report #: [id number] The aortic valve is normal in structure. Mitral Valve The mitral valve is normal in structure. Tricuspid Valve The tricuspid valve is normal in structure. Pulmonic Valve Pulmonic valve is not well visualized. Great Vessels The aortic root is normal in size. IVC is not well visualized. Pericardium There is no pericardial effusion. <Conclusion> The left ventricular systolic function is normal. The left ventricular ejection fraction is within the normal range. The interatrial septum is intact with no evidence for an atrial septal defect. <ELECTRONICALLY SIGNED> By: James Maurice MD, [facility] 05/25/20 1343 42 42 James Maurice MD, FACC /INF
[2020-05-26 04:19] LABS: HEMATOCRIT 31.1 % (37.0-47.0); MCH 29.1 pg (26.0-34.0); MCHC 32.1 g/dL (28.0-37.0); MCV 90.5 fL (80.0-100.0); RBC 3.44 mil/uL (4.20-5.00); RDW-CV 15.1 % (10.5-14.5); WBC 5.8 thou/uL (4.0-11.0)
[2020-05-26 04:51] LABS: ALBUMIN 2.4 g/dL (3.4-5.0); CALCIUM 7.8 mg/dL (8.5-10.1); CREATININE 0.5 mg/dL (0.6-1.3); POTASSIUM 3.5 mmol/L (3.5-5.1); TOTAL BILIRUBIN 0.6 mg/dL (<0.1-1.0); TOTAL PROTEIN 5.5 g/dL (6.4-8.2)
[2020-05-26 08:00] VITALS: BP 115/60
[2020-05-26 11:00] VITALS: BP 137/83
[2020-05-26 17:00] VITALS: BP 145/68
[2020-05-26 17:31] LABS: URINE BILIRUBIN NEGATIVE (Negative); URINE BLOOD 3+ (Negative); URINE CLARITY TURBID; URINE COLOR RED; URINE GLUCOSE-RANDOM NEGATIVE (Negative); URINE KETONES NEGATIVE (Negative); URINE LEUKOCYTES NEGATIVE (Negative); URINE NITRITE NEGATIVE (Negative); URINE PROTEIN 2+ (Negative); URINE SPECIFIC GRAVITY 1.025 (1.005-1.030)
[2020-05-26 17:38] LABS: MUCUS 0-3 Light strn/LPF (None Seen); URINE RBC >20 Many /HPF (0-2)
[2020-05-26 17:40] LABS: URINE WBC 0-5 Rare /HPF (0-5)
[2020-05-26 17:41] LABS: CASTS None Seen /LPF (None Seen); CRYSTALS None Seen /LPF (None Seen)
[2020-05-26 17:42] LABS: BACTERIA None Seen /HPF (None Seen); SQUAMOUS NONE SEEN /LPF (0-3)
[2020-05-27 08:00] VITALS: BP 130/80
[2020-05-27 12:00] VITALS: BP 126/84
[2020-05-27 13:42] LABS: HEMATOCRIT 34.3 % (37.0-47.0); HEMOGLOBIN 11.4 gm/dL (12.0-15.0); MCH 29.7 pg (26.0-34.0); MCHC 33.2 g/dL (28.0-37.0); MCV 89.5 fL (80.0-100.0); MPV 7.5 fl. (7.2-11.1); NUCLEATED RBCS 0 /100WBC; PLATELET COUNT* 242 thou/uL (150-400); RBC 3.84 mil/uL (4.20-5.00); RDW-CV 15.5 % (10.5-14.5); WBC 7.6 thou/uL (4.0-11.0)
[2020-05-27 13:59] LABS: ALBUMIN 2.5 g/dL (3.4-5.0); CALCIUM 8.2 mg/dL (8.5-10.1); CREATININE 0.6 mg/dL (0.6-1.3); POTASSIUM 3.5 mmol/L (3.5-5.1); TOTAL BILIRUBIN 0.6 mg/dL (<0.1-1.0); TOTAL PROTEIN 6.2 g/dL (6.4-8.2)
[2020-05-27 14:01] LABS: APTT 24.8 Seconds (25.0-31.3); PROTIME 10.7 Seconds (9.20-11.50)
[2020-05-27 14:11] LABS: ABSOLUTE EOSINOPHILS 0.1 thou/uL (0.0-0.7); ABSOLUTE LYMPHOCYTES 0.6 thou/uL (0.8-5.3); ABSOLUTE MONOCYTES 0.6 thou/uL (0.0-1.2); ABSOLUTE NEUTROPHILS 6.3 thou/uL (1.6-8.1)
[2020-05-27 14:12] LABS: ANISOCYTOSIS Occasional; PLATELET ESTIMATE ADEQUATE
[2020-05-27 16:00] VITALS: BP 133/74
[2020-05-27 21:00] VITALS: BP 119/65
[2020-05-27 23:06] LABS: COMPLEMENT-C4 65 mg/dL (12-38)
[2020-05-28] VITALS (7 sets, daily range): BP systolic 132–152; BP diastolic 59–86
[2020-05-28 04:47] LABS: ALBUMIN 2.2 g/dL (3.4-5.0); CREATININE 0.6 mg/dL (0.6-1.3); PHOSPHORUS* 3.2 mg/dL (2.5-4.9)
[2020-05-29 04:00] VITALS: BP 126/72
[2020-05-29 11:07] LABS: ANA INTERPRETATION Negative (Negative)
[2020-05-29 11:07] LABS: ANA INTERPRETATION Negative (Negative)
[2020-05-29 12:00] VITALS: BP 138/73
[2020-05-29 12:10] LABS: URINE BLOOD 3+ (Negative); URINE CLARITY CLEAR; URINE COLOR YELLOW; URINE GLUCOSE-RANDOM NEGATIVE (Negative); URINE KETONES NEGATIVE (Negative); URINE LEUKOCYTES TRACE (Negative); URINE NITRITE NEGATIVE (Negative); URINE PROTEIN 1+ (Negative); URINE SPECIFIC GRAVITY 1.025 (1.005-1.030)
[2020-05-29 12:11] LABS: ICTOTEST (BILI CONFIRMATORY) Negative (Negative); URINE BILIRUBIN 1+ (Negative)
[2020-05-29 12:18] LABS: BACTERIA 1-9 Few /HPF (None Seen); CALCIUM OXALATE 0-3 Few /LPF (None Seen); CASTS None Seen /LPF (None Seen); MUCUS 0-3 Light strn/LPF (None Seen); SQUAMOUS 0-3 Few /LPF (0-3); URINE RBC >20 Many /HPF (0-2); URINE WBC 0-5 Rare /HPF (0-5)
[2020-05-29 15:13] LABS: ABSOLUTE EOSINOPHILS 0.1 thou/uL (0.0-0.7); ABSOLUTE LYMPHOCYTES 0.5 thou/uL (0.8-5.3); ABSOLUTE MONOCYTES 0.4 thou/uL (0.0-1.2); ABSOLUTE NEUTROPHILS 4.8 thou/uL (1.6-8.1); BASOPHILS 0.6 %; EOSINOPHILS 1.5 %; HEMATOCRIT 31.9 % (37.0-47.0); HEMOGLOBIN 10.5 gm/dL (12.0-15.0); MCH 29.8 pg (26.0-34.0); MCHC 32.8 g/dL (28.0-37.0); MCV 90.9 fL (80.0-100.0); MONOCYTES 6.4 %; MPV 7.7 fl. (7.2-11.1); NUCLEATED RBCS 0 /100WBC; PLATELET COUNT* 231 thou/uL (150-400); POLYS 82.5 %; RBC 3.51 mil/uL (4.20-5.00); RDW-CV 18.1 % (10.5-14.5); WBC 5.8 thou/uL (4.0-11.0)
[2020-05-29 15:24] LABS: ALBUMIN 2.4 g/dL (3.4-5.0); CALCIUM 8.2 mg/dL (8.5-10.1); CREATININE 0.6 mg/dL (0.6-1.3); POTASSIUM 3.9 mmol/L (3.5-5.1); TOTAL BILIRUBIN 0.4 mg/dL (<0.1-1.0); TOTAL PROTEIN 5.9 g/dL (6.4-8.2)
[2020-05-29 16:58] VITALS: BP 147/87
[2020-05-29 20:30] VITALS: BP 144/78
[2020-05-30 00:17] VITALS: BP 152/92
[2020-05-30 05:00] VITALS: BP 144/83
[2020-05-30 08:45] VITALS: BP 151/86
[2020-05-30 09:08] LABS: GLOMERULR BASEM MEMBRN AB 3 units (0-20)
[2020-05-30 12:00] VITALS: BP 143/97
[2020-05-30 13:52] LABS: PROTIME 10.6 Seconds (9.20-11.50)
[2020-05-30 16:00] VITALS: BP 152/90
[2020-05-30 20:00] VITALS: BP 151/92
[2020-05-31] VITALS: BP 155/92
[2020-05-31 04:00] VITALS: BP 150/89
[2020-05-31 05:07] LABS: HEMATOCRIT 31.4 % (37.0-47.0); HEMOGLOBIN 10.2 gm/dL (12.0-15.0); MCH 29.6 pg (26.0-34.0); MCHC 32.6 g/dL (28.0-37.0); MCV 90.9 fL (80.0-100.0); MPV 7.7 fl. (7.2-11.1); RBC 3.45 mil/uL (4.20-5.00); RDW-CV 18.7 % (10.5-14.5); WBC 4.9 thou/uL (4.0-11.0)
[2020-05-31 05:54] LABS: PROTIME 10.7 Seconds (9.20-11.50)
[2020-05-31 06:17] LABS: ALBUMIN 2.4 g/dL (3.4-5.0); CALCIUM 8.1 mg/dL (8.5-10.1); CREATININE 0.5 mg/dL (0.6-1.3); MAGNESIUM 1.9 mg/dL (1.8-2.4); POTASSIUM 3.4 mmol/L (3.5-5.1); TOTAL BILIRUBIN 0.4 mg/dL (<0.1-1.0); TOTAL PROTEIN 5.8 g/dL (6.4-8.2)
[2020-05-31 08:00] VITALS: BP 145/85
[2020-05-31 12:00] VITALS: BP 142/89
[2020-05-31 16:00] VITALS: BP 151/88
[2020-05-31 20:00] VITALS: BP 167/98
[2020-06-01] VITALS (7 sets, daily range): BP systolic 124–196; BP diastolic 60–96
[2020-06-02 02:37] LABS: URINE BILIRUBIN NEGATIVE (Negative); URINE BLOOD 1+ (Negative); URINE CLARITY CLEAR; URINE COLOR YELLOW; URINE GLUCOSE-RANDOM NEGATIVE (Negative); URINE KETONES NEGATIVE (Negative); URINE LEUKOCYTES 1+ (Negative); URINE NITRITE NEGATIVE (Negative); URINE PROTEIN NEGATIVE (Negative); URINE UROBILINOGEN 0.2 E.U./dl (0.2-1.0)
[2020-06-02 03:20] LABS: CASTS None Seen /LPF (None Seen); SQUAMOUS 4-10 Moderate /LPF (0-3)
[2020-06-02 03:21] LABS: BACTERIA >30 Many /HPF (None Seen); CRYSTALS None Seen /LPF (None Seen); URINE RBC 0-2 Rare /HPF (0-2); URINE WBC 0-5 Rare /HPF (0-5)
[2020-06-02 04:28] VITALS: BP 149/85
[2020-06-02 08:30] VITALS: BP 129/79
[2020-06-02 13:21] VITALS: BP 163/84
[2020-06-02 18:35] VITALS: BP 158/85
[2020-06-02 20:00] VITALS: BP 155/92
[2020-06-03] VITALS (7 sets, daily range): BP systolic 135–162; BP diastolic 65–99
[2020-06-04 04:59] VITALS: BP 121/66
[2020-06-04 09:00] VITALS: BP 139/84
[2020-06-04 12:00] VITALS: BP 141/72
[2020-06-04 16:00] VITALS: BP 159/75
[2020-06-04 20:00] VITALS: BP 157/86
[2020-06-04 23:16] VITALS: BP 140/86
[2020-06-05 04:00] VITALS: BP 139/78
[2020-06-05 05:30] LABS: ABSOLUTE EOSINOPHILS 0.1 thou/uL (0.0-0.7); ABSOLUTE LYMPHOCYTES 0.9 thou/uL (0.8-5.3); ABSOLUTE MONOCYTES 0.4 thou/uL (0.0-1.2); BASOPHILS 0.7 %; EOSINOPHILS 1.6 %; HEMATOCRIT 34.8 % (37.0-47.0); HEMOGLOBIN 11.5 gm/dL (12.0-15.0); LYMPHOCYTES 16.3 %; MCH 29.6 pg (26.0-34.0); MCV 89.9 fL (80.0-100.0); MPV 7.5 fl. (7.2-11.1); NUCLEATED RBCS 0 /100WBC; PLATELET COUNT* 330 thou/uL (150-400); POLYS 73.4 %; RBC 3.87 mil/uL (4.20-5.00); RDW-CV 18.8 % (10.5-14.5); WBC 5.4 thou/uL (4.0-11.0)
[2020-06-05 05:51] LABS: ALBUMIN 2.9 g/dL (3.4-5.0); CALCIUM 9.4 mg/dL (8.5-10.1); CREATININE 0.4 mg/dL (0.6-1.3); POTASSIUM 3.4 mmol/L (3.5-5.1); TOTAL BILIRUBIN 0.5 mg/dL (<0.1-1.0); TOTAL PROTEIN 6.3 g/dL (6.4-8.2)
[2020-06-05 06:37] LABS: INR 1.3; PROTIME 13.4 Seconds (9.20-11.50)
[2020-06-05] MEDS ORDERED: VANCOMYCIN HCL125 MG PO (09:09)
[2020-06-05] MEDS ORDERED: VITAMIN C1000 MG PO (09:10)
[2020-06-05] MEDS ORDERED: NEXIUM40 MG PO (09:10)
[2020-06-05] MEDS ORDERED: LANTUS100 UNIT/M SUBQ (09:10)
[2020-06-05] MEDS ORDERED: LIPITOR 40 MG T40 M1 PO (09:10)
[2020-06-05] MEDS ORDERED: PREDNISONE 20 M20 MG PO (09:10)
[2020-06-05] MEDS ORDERED: ASA81BEC PO (09:10)
[2020-06-05] MEDS ORDERED: METOPROLOL TART25 MG PO (09:10)
[2020-06-05] MEDS ORDERED: HUMALOG100 UNIT/1 SUBQ (09:10)
[2020-06-05] MEDS ORDERED: ZINC SULFATE 2220 MG PO (09:10)
[2020-06-05] MEDS ORDERED: ELIQUIS5 MG PO (09:10)
[2020-06-05] MEDS ORDERED: VITAMIN B-1100 M1 PO (09:10)
[2020-06-05] MEDS ORDERED: IPRAT-ALBUT 0.5-3 ML INH (09:10)
[2020-06-05 12:00] VITALS: BP 156/87
[2020-06-05 16:00] VITALS: BP 157/87
[2020-06-05 20:00] VITALS: BP 144/86
[2020-06-06] VITALS: BP 144/83
[2020-06-06 04:00] VITALS: BP 152/88
[2020-06-06 11:56] VITALS: BP 146/90
--- NOTE | 2020-06-06 15:27 | CON ---
[address] [address] CONSULTATION Name: EVERETT BHATT Room: [address] IN .R.#: [id number] Admission: 05/02/20 Attend Phys: Sera Diamond Discharge: Date of : 75 Report #: [id number] THIS REPORT FOR: cc: Anna Castro DNP, Leopoldine DNP ~ Ambrocio Brown MD DATE OF SERVICE: 05/27/2020 REQUESTING PHYSICIAN: Mayuri Keller MD REASON FOR CONSULTATION: COVID-19, CVA, hypercoagulable state. HISTORY OF PRESENT ILLNESS: The patient is a 45-year-old woman who was admitted to the hospital with COVID-19 pneumonia and respiratory failure. Initially, she was intubated. During the hospital stay, she was found to have large right cerebellar stroke. Her symptoms resolved. She is extubated. She is followed by Neurology. Her condition is not getting better. Hematology consult is requested for ? possible APS. The patient is awake, but not able to give me any history. PAST MEDICAL HISTORY: Significant for hypertension. Otherwise, she has been healthy. SOCIAL HISTORY: Does not smoke. FAMILY HISTORY: Noncontributory. REVIEW OF SYSTEMS: Unable to obtain. PHYSICAL EXAMINATION: VITAL SIGNS: Blood pressure 130/80, heart rate is 80, temperature 98.6, respirations 18. NECK: Supple. LUNGS: Clear. ABDOMEN: Soft. LYMPHATIC: No peripheral lymphadenopathy. MENTAL STATUS: Alert, but not responding to questions verbally. She does not communicate verbally well. LABORATORY DATA: White count 5.8, hemoglobin 10.0, platelets 205. MRI of brain reviewed. [address] [address] CONSULTATION Name: EVERETT BHATT Room: [address] IN [facility].#: [id number] Admission: 05/02/20 Attend Phys: Sera Diamond Discharge: Date of : 75 Report #: [id number] ASSESSMENT AND PLAN: 1. Cerebrovascular accident. The patient does not have clinical presentation suggestive of antiphospholipid syndrome. She does not have venous thrombosis, which is more common, although arterial thrombosis can be a part of antiphospholipid syndrome presentation. Platelets are normal. 2. Lupus anticoagulant syndrome. Workup is pending. Agree with workup. Possibly, hypercoagulable state is related to COVID-19 infection. Continue anticoagulation with Lovenox. Thank you very much for allowing us to participate in the care of this patient. We will follow the patient with you. <ELECTRONICALLY SIGNED> By: Michell Mckeon MD 06/06/20 1527 2323 0032Ambrocio Brown MD /nt
[2020-06-06 15:47] VITALS: BP 146/90
--- NOTE | 2020-06-07 12:12 | CON ---
[address] [address] CONSULTATION Name: EVERETT BHATT Brandi Room: [address] IN M.R.#: [id number] Admission: 05/02/20 Attend Phys: Sera Diamond Discharge: 06/06/20 Date of : 75 Report #: [id number] THIS REPORT FOR: cc: Anna Castro DNP, Leopoldine DNP ~ Dinah Still MD DATE OF SERVICE: 05/27/2020 CONSULTING PHYSICIAN: Dr. Keller. REASON FOR CONSULTATION: Hematuria and proteinuria. HISTORY OF PRESENT ILLNESS: A 45-year-old female admitted with COVID-19 pneumonia and hypoxic respiratory failure. She was intubated and during the course of her hospital stay was also found to have a large right cerebellar stroke. She is now extubated, being followed by Neurology. I am asked to see her because of urinalysis showing hematuria and proteinuria. Her creatinine has been normal. Today's lab is pending. She is awake and alert, but not able to converse verbally. REVIEW OF SYSTEMS: Constitutional, psych, heme, eyes, ENT, respiratory, cardiac, GI, , endocrine, all negative except as documented above and as best as can be ascertained through chart review. PAST MEDICAL HISTORY: Hypertension, was on antihypertensives as an outpatient. FAMILY HISTORY: Not pertinent in this 45-year-old female. SOCIAL HISTORY: No tobacco. CURRENT MEDICATIONS: Reviewed. PHYSICAL EXAMINATION: VITAL SIGNS: Blood pressure is 130/80, pulse 80, respirations 16, temperature 37.0. GENERAL: No acute distress. EYES: Opens eyes. EARS: Externally normal. CARDIOVASCULAR: Regular rate. LUNGS: Diminished. ABDOMEN: Soft. MUSCULOSKELETAL: Nontender. PSYCHIATRIC: Awake, alert. [address] [address] CONSULTATION Name: EVERETT BHATT Room: [address]#: [id number] Admission: 05/02/20 Attend Phys: Sera Diamond Discharge: 06/06/20 Date of : 75 Report #: [id number] LABORATORY DATA: White cell count 5.8, hemoglobin 10, platelets 205. Yesterday sodium 141, potassium 3.5, chloride 107, bicarbonate 28, BUN 14, creatinine 0.5, glucose 110, calcium 7.8, magnesium 2. ASSESSMENT: 1. Hematuria. 2. Proteinuria. 3. Hypertension. 4. Right cerebellar stroke. 5. Morbid obesity. 6. COVID-19 pneumonia. PLAN: 1. UA shows 3+ blood with greater than 20 red blood cells and 2+ protein. There is a gross hematuria. Some of the proteinuria may be related to that. Antiphospholipid antibody testing has been sent off. I did discuss this with Dr. Keller. We will also check urine protein to creatinine ratio. CK, ANCA, MANOHAR, rheumatoid factor and anti-GBM antibody. 2. Check renal ultrasound. 3. Today's chemistry is pending. 4. The patient is on antibiotics. 5. Hematuria and proteinuria very well could be related to Arnold trauma. The patient was on Lovenox and aspirin. Case was discussed with Dr. Keller and we will plan to follow. Thank you for requesting my opinion in the care and management of this patient. <ELECTRONICALLY SIGNED> By: Dinah Still MD 06/07/20 1212 1319 1341Avladislav Still MD /nt
--- NOTE | 2020-06-08 13:51 | CON ---
[address] [address] CONSULTATION Name: EVERETT BHATT Brandi Room: [address] [place] .R.#: [id number] Admission: 05/02/20 Attend Phys: Sera Diamond Discharge: 06/06/20 Date of : 75 Report #: [id number] THIS REPORT FOR: cc: Anna Castro DNP, Leopoldine DNP ~ Richie Harris MD DATE OF SERVICE: 05/23/2020 HISTORY OF PRESENT ILLNESS: This is a 45-year-old female patient who was going to be seen by yesterday, but I had talked to multiple healthcare personnel and decided to come and see her today. Neurological consultation was requested because the patient had a large cerebellar CVA. This was noticed on the patient's CT. This patient has been very sick. She has been in the hospital for several days. I talked to the nurses and they say she can talk when she wants to, but on my examination, she does not do anything. She just lies there. She did not move anything for me at all. All 4 extremities, she showed no movement. How long she has been like this is not even clear to me. This is even after talking to the nurse who was taking care of this patient for some time, and she said this is the third day she has been taking care of her. REVIEW OF SYSTEMS: Indicates she was admitted with shortness of breath. She has significant hypoxia. She had elevated liver functions and elevated lipase at one time. She has been seen by numerous consultants and those notes were reviewed. Nurses have called focus puller and they have looked at the MRI. This was her relevant 14-point review of system, which is pretty extensive. PAST MEDICAL HISTORY: Positive for COVID infection. FAMILY HISTORY: Unavailable. SOCIAL HISTORY: She is and talked to the patient's . PHYSICAL EXAMINATION: Very limited. She did not say a single word even after prompting her multiple times. She did not follow simple commands. She moves her eyes in multiple directions, but she did not move anything for me, even I could not elicit any plantar. IMAGING STUDIES: CT scan was reviewed and does demonstrate a large cerebellar stroke. IMPRESSION AND PLAN: This patient does have a large right cerebellar stroke. Ideally, this patient should be managed in ICU. They need to be closely watched for any herniation, especially because the duration of the stroke is not known. I talked to the nursing supervisors, and they tell me ICU [place] [id number] CONSULTATION Name: BHATTEVERETT Room: [address] IN [facility].#: [id number] Admission: 05/02/20 Attend Phys: Sera Diamond Discharge: 06/06/20 Date of : 75 Report #: [id number] have to transfer the patient and I do not think transferring the patient is going to be any easy. I talked to the nurses and they said they will watch her closely here. The cerebellar stroke shown on the CT does not explain her symptoms. Either she has critical illness neuropathy or she has a brainstem involvement with the stroke. Since we cannot move her to ICU, I would like to get an MRI done to make sure that she is not already in the process of herniation. If not and if there is no ICU bed, we can monitor her here if frequent neurological examination can be done on her. I will also like to do an MRA to see if there is any thrombus sitting there, which will require different management. This patient will ultimately need more workup to make sure that spine is not a problem depending upon what the MRI of the brain shows. I spent more than 50 minutes of time taking care of this patient and majority of time was spent counseling and coordinating. Thank you very much for this referral. <ELECTRONICALLY SIGNED> By: Richie Harris MD 06/08/20 1351 [id number] Harris MD /nt
--- NOTE | 2020-06-08 13:51 | EEG ---
[address] [address] EEG STUDY REPORT Name: EVERETT BHATT Room: [address] [place] M.R.#: [id number] Admission: 05/02/20 Attend Phys: Sera Diamond Discharge: 06/06/20 Date of : 75 Report #: [id number] THIS REPORT FOR: cc: Anna Castro DNP, Leopoldine DNP ~ Richie Harris MD DATE OF SERVICE: 05/28/2020 This patient is being evaluated for altered mental status. EEG was done by placing the electrode by standard 10-20 system of electrode placement. Both referential and sequential montages were used for recording. Background activity in this patient's EEG is poorly formed and lot of artifact is present. It appeared to be about 5-6 Hz and 30 microvolt. The patient appeared to be drowsy during part of this EEG and that is associated with bilateral slowing and vertex sharp waves. Throughout the record, no active epileptiform activity was noticed. IMPRESSION: This patient's EEG is intermixed with theta range slowing on both sides. That is a nonspecific abnormality, which can occur with encephalopathy, effect of psychotropic medication, dementia, etc. Clinical correlation is recommended. <ELECTRONICALLY SIGNED> By: Richie Harris MD 06/08/20 1351 2017 2021Pnino Harris MD /radha
== END 2020-06-06 18:25 | DRG 870 ==
LOC: M.ERS 09:50 → M.ICU 11:04 → M.2W 11:04 → M.TBA-ER 11:04 → M.ORTHSURG 13:07 → M.ICU 05-06 14:53 → M.ORTHSURG 05-21 13:42 → M.ICU 05-24 00:37 → M.2W 05-25 15:11
PROVIDERS: Emergency Medicine Emergency Medical Services; Internal Medicine; Internal Medicine Critical Care Medicine; Internal Medicine Nephrology; Nurse Practitioner Adult Health; Pediatrics; ADMIT Internal Medicine; ATTEND Internal Medicine
DX: A41.89 Other specified sepsis (principal); U07.1 COVID-19; J12.89 Other viral pneumonia; J96.01 Acute respiratory failure with hypoxia; K85.90 Acute pancreatitis without necrosis or infection, unspecified; E43 Unspecified severe protein-calorie malnutrition; R53.2 Functional quadriplegia; G93.41 Metabolic encephalopathy; I63.9 Cerebral infarction, unspecified; B17.9 Acute viral hepatitis, unspecified; G72.81 Critical illness myopathy; A04.72 Enterocolitis due to Clostridium difficile, not specified as recurrent; D68.59 Other primary thrombophilia; Z68.41 Body mass index [BMI] 40.0-44.9, adult; I10 Essential (primary) hypertension; E66.01 Morbid (severe) obesity due to excess calories; R31.9 Hematuria, unspecified; M32.9 Systemic lupus erythematosus, unspecified; E87.6 Hypokalemia; K14.8 Other diseases of tongue; E11.65 Type 2 diabetes mellitus with hyperglycemia; Z79.01 Long term (current) use of anticoagulants; Z79.899 Other long term (current) drug therapy

== ENCOUNTER 2020-06-06 16:02 | Inpatient (IN) | payer OTHER, MEDICAID ==
[~2020-06-06] VITALS: Ht 170.2 cm; Wt 122.7 kg
[~2020-06-06 16:02] MED LIST: ASA81BEC PO; ELIQUIS5 MG PO; HUMALOG100 UNIT/1 SUBQ; IPRAT-ALBUT 0.5-3 ML INH; LANTUS100 UNIT/M SUBQ; LIPITOR 40 MG T40 M1 PO; LOSARTAN-HCTZ1 EAC3 PO; METOPROLOL TART25 MG PO; NEXIUM40 MG PO; NORVASC5 M1 PO; PREDNISONE 20 M20 MG PO; VANCOMYCIN HCL125 MG PO; VITAMIN B-1100 M1 PO; VITAMIN C1000 MG PO; ZINC SULFATE 2220 MG PO
--- NOTE | 2020-06-06 18:59 | NUR ---
PATIENT ARRIVED TO ROOM 324 VIA BED. ALERT AND NODS HEAD YES AND NO TO QUESTIONS. CURRENTLY ON LEFT SIDE ON SPECIALTY BED. CALL LIGHT WITHIN REACH.
[2020-06-06 19:00] VITALS: BP 139/78
[2020-06-06 19:02] VITALS: BP 148/87
--- NOTE | 2020-06-06 21:10 | NUR ---
AWAKENED FOR ADMITTING ASSESSMENT AND MEDICATION PASS. TOOK MEDICATIONS CRUSHED WITH CHOCOLATE PUDDING. NODS HEAD UP AND DOWN FOR "YES" AND SHAKES HEAD SIDE TO SIDE FOR "NO". NON VERBAL AT THIS TIME. COOPERATIVE AND FOLLOWS COMMANDS. INCONTINENT OF LARGE YELLOWISH LOOSE STOOL. JOURDAN CARE GIVEN. HAS PUREWICK DRAINING CLOUDY YELLOW URINE. ON SPECIALTY BED. CALL LIGHT WITHIN REACH. ABLE TO SQUEEZE WITH LEFT HAND BUT NOT RIGHT. IN SPECIAL CONTACT PRECAUTIONS DUE TO C.DIFF. DENIES DISCOMFORT.
--- NOTE | 2020-06-07 01:41 | NUR ---
AROUND 0000 HRS PLACED PT ON AVAPS, BUT PT DECLINED TO WEAR MASK AND WILL NOT LET RT GARY TO PLACED MASK AROUND HER HEAD. WHEN RT WAS LEAVING THE PT'S ROOM NOTICED THE PT WAS NAUSEATED AND STARTED TO VOMIT. RN NOTIFIED, COPPER MINER BLASTING CAME TO THE ROOM AND CLEANED PT. BIPAP ON HOLD FOR TONIGHT.WILL MONITOR CLOSELY. SPO2 RA=98%.
[2020-06-07 05:20] LABS: HEMATOCRIT 34.1 % (37.0-47.0); HEMOGLOBIN 11.3 gm/dL (12.0-15.0); MCH 30.1 pg (26.0-34.0); MCHC 33.1 g/dL (28.0-37.0); MCV 90.9 fL (80.0-100.0); RBC 3.76 mil/uL (4.20-5.00); RDW-CV 18.5 % (10.5-14.5); WBC 6.6 thou/uL (4.0-11.0)
[2020-06-07 05:24] LABS: CALCIUM 9.3 mg/dL (8.5-10.1); CREATININE 0.5 mg/dL (0.6-1.3); POTASSIUM 3.9 mmol/L (3.5-5.1)
--- NOTE | 2020-06-07 05:28 | NUR ---
AT ABOUT MIDNIGHT PATIENT HAD MODERATE AMOUNT OF EMESIS CONTAINING PARTIALLY DIGESTED FOOD. ASSISTED WITH TURNING SIDE TO SIDE EVERY TWO HOURS. HOURLY ROUNDING IN PROGRESS.
[2020-06-07 08:30] VITALS: BP 145/91
--- NOTE | 2020-06-07 09:24 | NUR ---
Pt had extended acute hospitalization for COVID+/ARDS and was intubated/extubated. Now admit to [facility]N rehab due to medical complexity, CVA. ST follows, pt requires altered diet of mech soft ground and nectar liquids. Intake has been >75% meals. Wt variable 277-218 lb, extreme class III obesity identified with BMI >40. Follow weekly intake and wt trends for rehab team meetings. Otherwise presents at low nutrition risk
--- NOTE | 2020-06-07 16:50 | NUR ---
ALERT AND WILL NOD HEAD YES OR NO TO ANSWER QUESTIONS. WILL OCCASSIONALLY SAY 1 WORD ANSWERS. PATIENT WEAKER ON RIGHT SIDE BUT ABLE TO HANDS AND FEET. REMAINS ON ISOLATION FOR DX OF C-DIFF. HAD 1 SOFT INCONTINENT STOOL TODAY. EATS GROUND DIET WITH NECTAR LIQUIDS FED BY STAFF. INCONTINENT OF URINE. AT TIMES USES PURWICK CATHETER. USES LONI LIFT AND 2 ASSIST TO TRANSFER TO AND FROM BED AND CHAIR. REMAINS ON SPECIAL AIR LOSS MATTRESS. REPOSITIONED APROXIMATELY EVERY 2 HOURS.
[2020-06-07 20:20] VITALS: BP 158/93
--- NOTE | 2020-06-08 07:23 | NUR ---
PATIENT HAS SLEPT WELL THROUGHOUT THE NIGHT. VSS ON RA. MEDICATIONS GIVEN ORDERED AND CHARTED. PATIENT DOES HAVE DIFFICULTY SWALLOWING CAPSULES THAT ARE UNABLE TO BE CRUSHED SUCH HER VACOMYCIN, BUT FINALLY GOT CAPSULE DOWN WITH NECTAR THICKENED CRANBERRY JUICE. PATIENT HOLDING JUICE IN LEFT HAND WITH SOME HELP AND TRYING TO DRINK HERSELF. PURE WICK IN PLACE TO SUCTION WITH ADEQUATE YELLOW URINE OUTPUT. PATIENT REMAINS IN ISOLATION FOR POSITIVE C-DIFF. WILL CONTINUE WITH THERAPIES AND NURSING TO CONTINUE MONITORING.
[2020-06-08 07:58] VITALS: BP 148/94
--- NOTE | 2020-06-08 16:12 | NUR ---
PT INCONT OF B/B. PUREWICK IN PLACE. PERICARE AND BED CHANGES NEEDED. ABLE TO ANSWER Y/N QUESTIONS BY SHAKING OR NODDING HER HEAD. PT FED HER MEALS. PT UNABLE TO SWALLOW PILLS. AT BEDSIDE.
[2020-06-08 19:00] VITALS: BP 157/102
--- NOTE | 2020-06-09 06:30 | NUR ---
ASSUMED PT CARE AT 1930. ASSESSMENT COMPLETED CHARTED. UNABLE TO MAKE NEEDS KNOWN. SHAKES HEAD YES AND NO FOR ANSWERING. NO APPARENT PAIN AND NO C/O PAIN OTHER THAN FROM BIPAP, WHICH SHE REFUSED. PT HAS BEEN MORE DIFFICULT TO GIVE MEDICATION TO AND WAS TURNING HEAD AWAY WHEN TRYING TO GIVE THEM TO HER. RESTING IN BED. INCONTINENT BOWEL AND BLADDER, [id number] COMPLETED CHARTED. WILL CONTINUE TO MONITOR.
[2020-06-09 11:48] VITALS: BP 164/101
--- NOTE | 2020-06-09 16:45 | NUR ---
INITIAL ASSESSMENT: PATIENT ADMITTED TO [facility] [place] [facility] ON 06/06/20 WITH A DIAGNOSIS OF CVA. PT ALERT, BUT ONLY ABLE TO ANSWER YES/NO QUESTIONS AT THIS TIME. PRIOR TO ADMIT PT NORMALLY A&O, ACTIVE, ADN INDEPENDENT WITH ADL'S. PT RESIDES AT HOME WITH SPOUSE, MOTHER, AND CHILDREN. PT OWNS 0 DME. PT HAS 0 HX OF HH OR SNF. CM ORIENTED PT AND SPOUSE TO THE REHAB UNIT AND PROCESSES, RESIDENTS RIGHTS INFO, TEAM CONFRENCE, AND TO THE ROLE OF CM. CM WILL REMAIN AVAILABLE TO ASSIST AND FOLLOW NEEDED.
--- NOTE | 2020-06-09 18:31 | NUR ---
ASSESSMENT COMPLETED DOCUMENTED THIS MORNING. PATIENT ASSISTED TO RECLINER AT THE BEDSIDE WITH 3 ASSIST AND LONI. TOLERATED WELL AND WAS RETURNED TO BED AFTER LUNCH. IS TOTALLY FED AT MEALS AND OFFERRED FLUIDS FREQUENTLY. CHICKEN POT PIE SERVED FOR SUPPER AND PATIENT COUGHED CONSISTENTLY AFTER CHEWING AND SWALLOWING PIECES OF CHICKEN OR POTATO. SET TO THE SIDE AND ORDERED MASHED POTATOES AND GRAVY WHICH PATIENT WAS ASSISTED WITH AND HAD NO ISSUES SWALLOWING. [employer] INCONT DEVICE DCD THIS MORNING D/T BECOMING COVERED WITH STOOL EVERYTIME PATIENT HAD AN INCONT STOOL. HAS BEEN CHANGED, TURNED AND REPOSITIONED Q2H, CDIFF ISOLATION PRECAUTIONS ADHERED TO.
[2020-06-09 20:35] VITALS: BP 151/86
--- NOTE | 2020-06-09 20:35 | NUR ---
RESTING QUIETLY IN BED AND WATCHING TV. SHAKES HEAD BACK AND FORTH WHEN ASKED IF NEEDED MEDICATION FOR PAIN. RIGHT ARM ELEVATED ON A PILLOW. INITIALLY SPIT OUT MEDICATION BUT THEN SWALLOWED. MEDICATIONS WERE CRUSHED WITH APPLESAUCE. CALL LIGHT WITHIN REACH. IN SPECIAL ISOLATION FOR C-DIFF. ON BARIATRIC SPECIALTY BED.
--- NOTE | 2020-06-10 04:39 | NUR ---
INCONTINENT OF LARGE AMOUNT OF URINE X 5 SO FAR. JOURDAN CARE GIVEN. TURNED SIDE TO SIDE EVERY TWO HOURS. HOURLY ROUNDING IN PROGRESS.
[2020-06-10 08:00] VITALS: BP 150/86
--- NOTE | 2020-06-10 17:05 | NUR ---
ASSESSMENT COMPLETED DOCUMENTED THIS MORNING. PATIENT UP WITH 2 ASSIST AND LONI LIFT TO RECLINER AT THE BEDSIDE, STAYED UP UNTIL AFTER LUNCH AND TOLERATED VERY WELL. INCONT OF B&B WITH NO SKIN ISSUES. ISOLATION PRECAUTIONS FOR CDIFF MAINTAINED AND PATIENT HAS TAKEN ALL OF HER MEDS TODAY WITHOUT ISSUE. IN TO VISIT IN THE MORNING AND AGAIN IN THE AFTERNOON, INTERACTION FROM PATIENT NOTED. REPOSITIONED Q2H.
[2020-06-10 20:30] VITALS: BP 142/83
--- NOTE | 2020-06-10 20:30 | NUR ---
RESTING QUIETLY ON SPECIALTY BED AND WATCHING TV. MORE TALKATIVE TONIGHT. ASSISTED WITH FINDING A DIFFERENT CHANNEL. CONSUMED A PACKAGE OF PEANUT BUTTER AND DRANK SOME CRANBERRY JUICE. RIGHT ARM ELEVATED ON A PILLOW. HAS RIGHT HEMIPARESIS. HOLDS ONTO CALL LIGHT WITH LEFT HAND. INCONTIENT OF URINE. JOURDAN CARE GIVEN. ASSISTED WITH REPOSITIONING.
--- NOTE | 2020-06-11 01:14 | NUR ---
AROUND 0045 HRS:PT DECLINED TO WEAR AVAPS,DOESN'T WANT TO USE BIPAP.INDICATIONS AND CONTRAINDICATIONS EXPLAINED TO PT,NOD UNDERSTANDING.SPO2=98% AT ROOM AIR.WILL MONITOR CLOSELY. RN NOTIFIED.
--- NOTE | 2020-06-11 04:56 | NUR ---
RESTED QUIETLY. INCONTINENT OF URINE. JOURDAN CARE GIVEN. ASSISTED WITH REPOSITIONING. IN SPECIAL CONTACT ISOLATION DUE TO C. DIFF. HOURLY ROUNDING IN PROGRESS.
[2020-06-11 07:58] VITALS: BP 152/88
--- NOTE | 2020-06-11 17:16 | NUR ---
AM ASSESSMENT AND VITAL SIGNS COMPLETED DOCUMENTED. PT CONTINUES TO BE MAX ASSIST WITH TRANSFERS AND IS DEPENDENT WITH EATING AND TOILETING. PT TOOK HER MEDICATIONS CRUSHED IN PUDDING. GOOD ORAL CARE AND REPOSITIONING DONE EVERY TWO HOURS OR MORE NEEDED. PT IS INCONTINENT OF BOWEL AND BLADDER, NO SKIN BREAKDOWN OBSERVED. ISOLATION PRECAUTIONS FOR C DIFF CONTINUE. HOURLY ROUNDING AND FALL PRECAUTIONS OBSERVED.
[2020-06-11 19:00] VITALS: BP 146/89
--- NOTE | 2020-06-11 21:00 | NUR ---
RESTING QUIETLY IN BED. DENIES DISCOMFORT. CALL LIGHT WITHIN REACH. TOOK MEDICATIONS CRUSHED IN APPLESAUCE FOLLOWED WITH NECTAR THICK CRANBERRY JUICE. COUGHED AFTER DRANK CRANBERRY JUICE. IN SPECIAL CONTACT ISOLATION DUE TO C-DIFF. ON SPECIALTY BARIATRIC BED. INCONTINENT OF URINE. JOURDAN CARE GIVEN.
--- NOTE | 2020-06-12 05:36 | NUR ---
RESTED QUIELTY. NON PRODUCTIVE COUGH AT TIMES. REPOSITIONED SIDE TO SIDE EVERY TWO HOURS. INCONTINENT OF URINE X ONE DURING THE NIGHT. JOURDAN CARE GIVEN. HOURLY ROUNDING IN PROGRESS.
[2020-06-12 07:46] VITALS: BP 148/85
--- NOTE | 2020-06-12 15:41 | NUR ---
CM SPOKE TO PT AND SPOUSE TO DISCUSS ANY QUESTIONS OR CONCERNS FOR TOMORROWS TEAM CONFRENCE MEETING. SPOUSE INFORMS OF WANTING TO KNOW OF PT'S PROGRESS. CM AND PHYSICIAN WILL F/U WITH PT AND SPOUSE AFTER TOMORROWS MEETING.
[2020-06-12 20:00] VITALS: BP 146/83
[2020-06-13 04:18] LABS: HEMATOCRIT 37.3 % (37.0-47.0); HEMOGLOBIN 12.7 gm/dL (12.0-15.0); MCH 30.4 pg (26.0-34.0); MCHC 33.9 g/dL (28.0-37.0); MCV 89.7 fL (80.0-100.0); MPV 6.8 fl. (7.2-11.1); RBC 4.16 mil/uL (4.20-5.00); RDW-CV 17.8 % (10.5-14.5); WBC 8.3 thou/uL (4.0-11.0)
[2020-06-13 04:26] LABS: CALCIUM 9.6 mg/dL (8.5-10.1); CREATININE 0.6 mg/dL (0.6-1.3)
[2020-06-13 04:39] LABS: POTASSIUM 2.7 mmol/L (3.5-5.1)
--- NOTE | 2020-06-13 06:45 | NUR ---
ASSUMED PT CARE AT 1930. ASSESSMENT COMPLETED CHARTED. ABLE TO MAKE SOME NEEDS KNOWN. [id number] COMPLETED CHARTED. C/O BACK PAIN AND GAVE PRN TYLENOL. PT REFUSED MULTIPLE ATTEMPTS TO GIVE HER HER MORNING MEDICATIONS, EVEN TRIED MIXING WITH APPLE JUICE AND APPLE SAUCE. PT DRANK APPLEJUICE BUT WOULD SHAKE HEAD NO AND MOVE HEAD TO AVOID BEING GIVEN HER PILLS OR HER VANCOMYCIN. EDUCATED PT ON NEED FOR MEDICATIONS AND SHE ANSWERED FOLLOW UP QUESTIONS WITH YES OR NO ANSWERS APPROPRIATELY AND WITH UNDERSTANDING. RESTING IN BED THROUGHOUT THE NIGHT AND HEARD HER SNORE AT TIMES. WILL CONTINUE TO MONITOR.
[2020-06-13 08:12] VITALS: BP 175/93
--- NOTE | 2020-06-13 16:02 | NUR ---
TEAM CONFRENCE MEETING HELD TODAY. CM AND PHYSICIAN INFORMED PT AND SPOUSE OF MEETING AND PLAN TO RE-TEAM AND HAVE THE PT REMAIN ON THE UNIT FOR ANOTHER WEEK TO CONTINUE THERAPIES. PT AND SPOUSE IN AGREEMENT. CM WILL REMAIN AVAILABLE TO ASSIST AND FOLLOW NEEDED.
--- NOTE | 2020-06-13 18:18 | NUR ---
ASSESSMENT COMPLETED DOCUMENTED THIS MORNING. PATIENT UP AND PARTICIPATING WITH THERAPY AND CONTINUES TO PROGRESS. WAS IN W/C WITH BLE UP IN LEG RESTS, IN LOCKED POSITION WHEN SHE WIGGLE AND SCOOTED HER WAY TO A SLUMPED DOWN POSITION. CHAIR ALARM WENT OFF AND SHE WAS ASSISTED TO BED WITH LONI . HAS BEEN REPOSITIONED Q2, INCONT OF B&B WITH CARES PROVIDED. GOOD APPETITE, MUCH COAXING NEEDED TO TAKE HER MEDS BUT EVENTUALLY TAKES THEM. K+ 40 GIVEN X2 TODAY WITH K+ UP TO 3.3 AT 1800.
[2020-06-13 20:00] VITALS: BP 172/107
--- NOTE | 2020-06-13 22:06 | NUR ---
ASSUMED PT CARE AT 1930. ASSESSMENT COMPLETED CHARTED. ABLE TO MAKE SOME NEEDS KNOWN WITH HEADSHAKES AND A COUPLE WORDS SOMETIMES. PT TOOK ONE BITE OF HER MIXTURE OF PILLS IN APPLESAUCE AND THEN REFUSED TO TAKE ANYMORE. C/O BEING UNCOMFORTABLE, REFUSING PAIN MEDICATION, AND COMPLETING [id number] CHARTED. WILL CONTINUE TO MONITOR.
[2020-06-14 04:12] LABS: HEMATOCRIT 37.7 % (37.0-47.0); HEMOGLOBIN 12.5 gm/dL (12.0-15.0); MCV 90.7 fL (80.0-100.0); MPV 6.9 fl. (7.2-11.1); RBC 4.16 mil/uL (4.20-5.00); RDW-CV 18.4 % (10.5-14.5); WBC 8.6 thou/uL (4.0-11.0)
[2020-06-14 04:29] LABS: ALBUMIN 3.1 g/dL (3.4-5.0); CALCIUM 9.2 mg/dL (8.5-10.1); CREATININE 0.5 mg/dL (0.6-1.3); MAGNESIUM 1.9 mg/dL (1.8-2.4); POTASSIUM 3.5 mmol/L (3.5-5.1); TOTAL BILIRUBIN 0.5 mg/dL (<0.1-1.0); TOTAL PROTEIN 6.8 g/dL (6.4-8.2)
[2020-06-14 08:55] VITALS: BP 145/92
[2020-06-14 20:00] VITALS: BP 156/88
--- NOTE | 2020-06-15 05:12 | NUR ---
ASSUMED PT CARE AT 1930. PT ALERT AND ORIENTED TO SELF, UNDERSTANDS QUESTIONS AND REQUESTS BUT DOES NOT ANSWER VERBALLY. NODS HER HEAD YES OR NO. DENIES PAIN. TOOK ALL HS MEDICATIONS CRUSHED IN APPLESAUCE, AND PO VANCOMYCIN FOLLOWED BY PLAIN APPLESAUCE. INCONTIENT OF BOWEL AND BLADDER, PERICARE PROVIDED. Q2 TURNS. PT ON SPECIALTY BARIATRIC BED. SPECIAL CONTACT ISOLATION FOR C-DIFF. CALL LIGHT IN REACH. HOURLY ROUNDING IN PROGRESS, WILL CONTINUE TO MONITOR.
[2020-06-15 07:45] VITALS: BP 146/90
--- NOTE | 2020-06-15 16:01 | NUR ---
ALERT AND WILL ANSWER QUESTIONS WITH SIMPLE WORDS OR NODDING HEAD YES OR NO. DENIES PAIN WHEN ASKED. UP WITH LONI LIFT AND 2 ASSIST. REPOSITIONED/TURNED AT LEAST EVERY 2 HOURS. HAS RIGHT SIDED WEAKNESS BUT ABLE TO MOVE RIGHT HAND AND FOOT. REMAINS ON ISOLATION FOR DX OF C/DIFF. INCONTINENT OF URINE AND [address] NOTIFIED OF RECENT BLOOD SUGARS AND RECENT INSULIN INTAKE. NEW ORDERS NOTED. PILLS CRUSHED IN APPLESAUCE. REMAINS ON NECTAR THICKEN LIQUIDS AND [facility]. CHAIR ALARM USED WHEN UP.
[2020-06-15 20:00] VITALS: BP 138/86
--- NOTE | 2020-06-16 05:05 | NUR ---
ASSUMED PT CARE AT 1930. PT ALERT AND ORIENTED TO SELF, UNDERSTANDS QUESTIONS AND CAN NOD ANSWERS TO YES OR NO QUESTIONS. DENIES PAIN. TOOK MEDICATIONS CRUSHED IN APPLESAUCE, NEEDED ENCOURAGEMENT. INCONTINENT OF BLADDER, PERICARE PROVIDED. Q2 TURNS. PT ON SPECIALTY BARIATRIC BED. SPECIAL CONTACT ISOLATION FOR C-DIFF. CALL LIGHT IN REACH. HOURLY ROUNDING IN PROGRESS, WILL CONTINUE TO MONITOR.
[2020-06-16 07:43] VITALS: BP 154/98
--- NOTE | 2020-06-16 10:43 | NUR ---
RECEIVED REPORT FROM [facility] SHIFT AT 0700. PATIENT A&O, APHASIC. PATIENT RESTING IN BED, IN LOWEST LOCKED POSITION WITH CALL LIGHT IN REACH TO LEFT HAND.
--- NOTE | 2020-06-16 18:12 | NUR ---
PATIENT SEEN BY DR. STYLES TODAY. ORDERED EYE PATCH TO COVER ONE EYE AND ALTERNATE WITH OTHER EYE EVERY 2 HOURS. PATCH CAN BE OFF WHEN SLEEPING. PATIENT A&O. STATES NO PAIN. URINATED X3; BM X2. PATIENT IN BED IN LOWEST LOCKED POSITION AND CALL LIGHT IN REACH.
[2020-06-16 19:00] VITALS: BP 145/90
[2020-06-17 07:45] VITALS: BP 159/100
--- NOTE | 2020-06-17 16:03 | NUR ---
ALERT AND WILL NOD YES OR NO TO QUESTIONS. WILL OCCASSIONALLY ANSWER QUESTION WITH 1-2 WORD ANSWERS. DENIES PAIN WHEN ASKED. TURNED/REPOSITIONED AT LEAST EVERY 2 HOURS. UP WITH LONI LIFT AND 2 ASSIST DUE TO RIGHT SIDED WEAKNESS. APPLIED EYE PATCH ALTERNATING EYES EVERY 2 HOURS. PATIENT AT TIMES REMOVES PATCH. EATS 100% OF MECH. ALTERED GROUND DIET WITH NECTAR THICKEN LIQUIDS FED BY STAFF. TAKES PILLS CRUSHED AND IN APPLESAUCE WITHOUT DIFFICULT TODAY.REMAINS ON ISOLATION PRECAUTIONS FOR C-DIFF DX. HAD 2 SOFT STOOLS TODAY. INCONTINENT OF URINE. REMAINS ON SPECIALTY BED. CALL LIGHT WITHIN REACH.
[2020-06-17 19:00] VITALS: BP 146/91
--- NOTE | 2020-06-18 04:28 | NUR ---
ASSUMED CARE AT 1920. ALERT AND ORIENTED. WILL WHISPER AT TIMES WHEN TRYING TO SPEAK. RIGHT SIDE WEAKNESS. ISOLATION FOR CDIFF. PILLS CRUSHED IN APPLESAUCE. NECTAR THICK LIQUIDS. INCONTINENT OF BOWEL AND BLADDER. TURNED ONTO SIDES ALL NIGHT. CALL LIGHT IN REACH. WILL CONTINUE TO MONITOR.
[2020-06-18 04:35] LABS: HEMOGLOBIN 11.9 gm/dL (12.0-15.0); MCH 29.7 pg (26.0-34.0); MCV 90.1 fL (80.0-100.0); RDW-CV 17.8 % (10.5-14.5); WBC 9.6 thou/uL (4.0-11.0)
[2020-06-18 04:56] LABS: CALCIUM 9.7 mg/dL (8.5-10.1); CREATININE 0.7 mg/dL (0.6-1.3); MAGNESIUM 1.7 mg/dL (1.8-2.4); POTASSIUM 3.1 mmol/L (3.5-5.1); TOTAL BILIRUBIN 0.3 mg/dL (<0.1-1.0)
[2020-06-18 08:30] VITALS: BP 142/79
--- NOTE | 2020-06-18 16:42 | NUR ---
ALERT AND WILL SAY 1-2 WORDS SOFTLY OR NOD HEAD YES OR NO TO QUESTIONS. UP WITH 2 ASSIST AND LONI LIFT. DENIES PAIN WHEN ASKED. HAS NOT HAD ANY LOOSE/SOFT STOOLS TODAY. PATIENT STATES SHE HAS TO "PEE" AND THEN PEE WHEN GIVEN BEDPAN. PATIENT ABLE TO TAKE PILLS WHOLE 1 AT A TIME WITHOUT DIFFICULTY. DIET CHANGED TO [facility]. ALTERED CHOPPED. PATIENT ABLE TO LIFT RIGHT LEG OFF OF BED AND WIGGLE BILATERAL FEET. ABLE TO SALESPERSON TERRAZZO TILES SOME WITH RIGHT HAND. ABLE TO FEED SELF WITH SET UP HELP AND MINIMAL ASSIST. C/O LEFT EAR PAIN TO . NURSE PRACTITIONER HERE AND NOTIFIED. EYE PATCH PLACE ON ALTERNATING EYES EVERY 2 HOURS BUT PATIENT AT TIMES WILL PULL OFF. TURNED EVERY 2 HOURS. REMAINS ON SPECIALTY BED.
[2020-06-18 18:38] LABS: MAGNESIUM 1.8 mg/dL (1.8-2.4); POTASSIUM 3.5 mmol/L (3.5-5.1)
[2020-06-18 19:33] VITALS: BP 128/78
--- NOTE | 2020-06-19 04:24 | NUR ---
ASSUMED PT CARE AT 1930. PT ALERT AND ORIENTED X4, POLITE AND COOPERATIVE WITH CARES. PT CAN MAKE NEEDS KNOWN, WHISPERS WORDS. RIGHT SIDED WEAKNESS. IN ISOLATION FOR CDIFF. TOOK PILLS WHOLE ONE AT A TIME WITH NECTAR THICKENED TEA. INCONTINENT OF BLADDER. BARIATRIC SPECIALTY BED. TURNED Q2. CALL LIGHT IN REACH, BED ALARM ON FOR SAFETY. HOURLY ROUNDING IN PROGRESS, WILL CONTINUE TO MONITOR.
[2020-06-19 08:00] VITALS: BP 154/85
--- NOTE | 2020-06-19 15:11 | NUR ---
CM SPOKE TO THE PT AND HER SPOUSE TO DISCUSS ANY QUESTIONS OR CONCERNS THAT THEY MAY HAVE FOR TOMORROWS TEAM CONFRENCE MEETING. PT'S SPOUSE INFORMS THAT HE IS JUST 'WAITING TO HEAR ABOUT HER PROGRESS'. CM AND PHYSICIAN TO F/U WITH PT AND HER SPOUSE TO DISCUSS PT'S PROGRESS WITH THERAPIES.
[2020-06-19 19:00] VITALS: BP 135/84
[2020-06-20 04:41] LABS: HEMATOCRIT 36.8 % (37.0-47.0); HEMOGLOBIN 12.3 gm/dL (12.0-15.0); MCH 29.9 pg (26.0-34.0); MCHC 33.3 g/dL (28.0-37.0); MCV 89.7 fL (80.0-100.0); MPV 7.1 fl. (7.2-11.1); RBC 4.1 mil/uL (4.20-5.00); RDW-CV 17.4 % (10.5-14.5); WBC 8.5 thou/uL (4.0-11.0)
--- NOTE | 2020-06-20 04:47 | NUR ---
ASSUMED PT CARE AT 1930. PT ALERT AND ORIENTED, POLITE AND COOPERATIVE WITH CARES. PT TALKING MORE, ALBEIT IN A WHISPER. USING CALL LIGHT APPROPRIATELY. RIGHT SIDED WEAKNESS. IN ISOLATION FOR CDIFF. TAKES PILLS WHOLE ONE AT A TIME FOLLOWED WITH NECTAR THICKENED TEA. BARIATRIC SPECIALTY BED. TURNED Q2. INCONTINENT OF URINE. NO STOOL THUSFAR THIS SHIFT. CALL LIGHT IN REACH, BED ALARM ON FOR SAFETY. HOURLY ROUNDING IN PROGRESS, WILL CONTINUE TO MONITOR.
[2020-06-20 04:52] LABS: CREATININE 0.6 mg/dL (0.6-1.3); POTASSIUM 3.3 mmol/L (3.5-5.1)
[2020-06-20 07:30] VITALS: BP 149/86
--- NOTE | 2020-06-20 15:54 | NUR ---
TEAM CONFRENCE MEETING HELD TODAY. CM AND PHYSICIAN INFORMED PT AND SPOUSE OF THE MEETING AND PLAN TO RE-TEAM AND HAVE THE PT REMAIN ON TH UNIT FOR ANOTHER WEEK TO CONTINUE THERAPIES. PT AND SPOUSE IN AGREEMENT WITH THE PLAN. PT PROGRESSING TOWARDS GOALS, BUT BARRIERS ARE WEAKNESS, DECREASED ACTIVITY TOLERANCE, FETIGUE, AND DECREASED SITTING BALANCE. CM WILL REMAIN AVAILABLE TO ASSIST AND FOLLOW NEEDED.
[2020-06-20 20:00] VITALS: BP 110/60
--- NOTE | 2020-06-21 05:28 | NUR ---
ASSUMED CARE AT 1920. ALERT AND ORIENTED. PLEASANT. STARTING TO ANSWER WITH WHISPERS. DENIED ANY PAIN. RIGHT SIDE WEAKNESS. PT ABLE TO SHIFT SELF QUITE A BIT IN BED. K+ REPLACED. PT INCONTINENT OF BOWEL AND BLADDER BUT HAD NOT VOIDED FOR AWHILE. BLADDER SCAN SHOWED 424 CC. PT SHOOK HEAD NO WHEN ASKED IF NEEDED BEDPAN. WILL CONTINUE TO MONITOR.
[2020-06-21 08:14] VITALS: BP 115/61
--- NOTE | 2020-06-21 18:14 | NUR ---
ASSESSMENT COMPLETED DOCUMENTED THIS MORNING. ACETAMINOPHEN 650MG GIVEN X2 DURING THE SHIFT FOR RIGHT SHOULDER PAIN/ACHING. PARTICIPATING WITH THERAPY AND CONTINUES TO MAKE PROGRESS. IN TO VISIT, BROUGHT PATRICIAER IN THIS AFTERNOON AND FED TO HER, SHE TOLERATED WELL WITH NO SWALLOWING ISSUES NOTED.
[2020-06-21 21:30] VITALS: BP 136/82
--- NOTE | 2020-06-22 05:24 | NUR ---
ASSUMED CARES AT 1920. ALERT AND ORIENTED. PLEASANT. MAKING EFFORTS TO SPEAK MORE. TOOK PILLS WHOLE WITH APPLESAUCE AND NECTAR THICK LIQUIDS. SLEPT LITTLE. CALL LIGHT IN REACH.
[2020-06-22 08:00] VITALS: BP 142/78
--- NOTE | 2020-06-22 18:02 | NUR ---
AM ASSESSMENT AND VITAL SIGNS COMPLETED DOCUMENTED. PT WORKED ON STAND, PIVOT TRANSFERS WITH THERAPY TODAY. PT HAD ONE SOFT FORMED BM THIS SHIFT, PO VANCOMYCIN AND ISOLATION PRECAUTIONS CONTINUE. PT IS WELL NOURISHED AND IS VERY MOBILE IN BED , NO NEED FOR Q2 HR TURNS AT THIS POINT. FALL PRECAUTIONS AND HOURLY ROUNDING CONTINUE.
[2020-06-22 19:45] VITALS: BP 150/86
--- NOTE | 2020-06-22 19:50 | NUR ---
MOVES AROUND IN BED AND HANGS LEG OVER SIDE OF BED. ASSISTED WITH REPOSITIONING AND PULLED UP IN BED. CALL LIGHT WITHIN REACH. WATCHING TV. APHASIC. RIGHT HEMIPARESIS. RIGHT ARM ELEVATED ON A PILLOW.
--- NOTE | 2020-06-23 05:17 | NUR ---
INCONTINENT OF URINE X 2. JOURDAN CARE GIVEN. HOURLY ROUNDING IN PROGRESS.
[2020-06-23 08:28] VITALS: BP 156/88
--- NOTE | 2020-06-23 18:25 | NUR ---
ASSESSMENT COMPLETED DOCUMENTED THIS MORNING. PATIENT CONTINUES TO USE HER VOICE AND SPEAK TO STAFF, AT TIMES ABOVE A WHISPER AND A FULL CONVERSATION. BROUGHT IN A MUSHROOM EMIRATI CHEESEBURGER FROM THEIR RESTAURANT AND ASSISTED PATIENT EATING IT. SHE TOLERATED IT VERY WELL.
[2020-06-23 20:00] VITALS: BP 148/88
--- NOTE | 2020-06-24 04:59 | NUR ---
ASSUMED PT CARE AT 1930. PT ALERT AND ORIENTED X4, POLITE AND COOPERATIVE WITH CARES. PT TALKING MORE, ANSWERS QUESTIONS APPROPRIATELY. ABLE TO FEED MEDS TO HERSELF IN APPLESAUCE AND HOLD AND DRINK FROM A CUP WITH NECTAR THICKENED ICE TEA. PT INCONTINENT OF URINE X2, PERICARE GIVEN. PT TURNS HERSELF IN BED. CALL LIGHT IN REACH, BED ALARM ON FOR SAFETY. HOURLY ROUNDING IN PROGRESS, WILL CONTINUE TO MONITOR.
[2020-06-24 07:30] VITALS: BP 117/72
--- NOTE | 2020-06-24 18:41 | NUR ---
ASSESSMENT COMPLETED DOCUMENTED THIS MORNING. PATIENT RESTING IN BED TODAY, HAVE INQUIRED MULTIPLE TIMES IF SHE WANTED TO GET OOB AND IN CHAIR AND SHE DECLINED TODAY. IN THIS AFTERNOON AND BROUGHT IN FRIED CHICKEN FROM THEIR RESTAURANT FOR PATIENT TO EAT, SHE TOLERATED WELL. C/O RIGHT SHOULDER PAIN MORE SO TODAY WITH POSITIONING. ORDERS REC'D FROM DR. GREWAL TO USE KPAD PRN AND DICLOFENAC GEL. BOTH APPLIED AT 1800 AND PATIENT IS RESTING MUCH MORE COMFORTABLE.
[2020-06-24 20:00] VITALS: BP 146/85
--- NOTE | 2020-06-25 05:16 | NUR ---
ASSUMED PT CARE AT 1930. PT ALERT AND ORIENTED X4, POLITE AND COOPERATIVE WITH CARES. PT TALKING MORE, ABLE TO ANSWER QUESTIONS. TAKES PILLS WHOLE IN APPLESAUCE FOLLOWED BY SIPS OF NECTAR THICK TEA. K PAD AND TYLENOL X1 FOR RIGHT SHOULDER PAIN. PT SLEPT WELL OVERNIGHT, INCONTINENT OF URINE X1. NO STOOL THIS SHIFT. CALL LIGHT IN REACH, BED ALARM ON FOR SAFETY. HOURLY ROUNDING IN PROGRESS.
[2020-06-25 08:00] VITALS: BP 142/76
--- NOTE | 2020-06-25 10:46 | NUR ---
WOUND NURSE: JOSE RAFAEL IN OT REPORTS BARIATRIC NIDIA BED HINDERING CARE WITH THERAPY PROVIDED. PATIENT'S MASSIEL IS 17 PER HER NURSE, BRIANA RN. SKIN IS INTACT AND PATIENT ABLE TO ASSIST WITH REPOSITIONING. SPECIALTY BED DISCONTINUED A RESULT.
--- NOTE | 2020-06-25 16:23 | NUR ---
ALERT AND WILL ANSWER QUESTIONS WITH NODDING HEAD YES OR NO OR SAY 1 OR 2 WORDS SOFTLY. REMAINS ON NECTAR THICKEN LIQUIDS AND CHOPPED DIET. HAD 1 LARGE SOFTLY FORMED STOOL TODAY. TAKES PILLS WHOLE AND WITH APPLESAUCE. USES LONI LIFT FOR TRANSFERES EXCEPT WITH THERAPIES WHO USE 2 ASSIST, AND GAIT BELT FOR PIVOT TRANSFERS. PATIENT CHANGED TO REGULAR BED. REPOSITIONED OR TURNED AT LEAST EVERY HOUR. SENT MESSAGE ABOUT WEIGHT LOSS TO . FALL PRECAUTIONS IN PLACE. BED ALARM AND CHAIR ALARM USED.
[2020-06-25 19:00] VITALS: BP 149/80
--- NOTE | 2020-06-26 05:01 | NUR ---
ASSUMED PT CARE AT 1930. PT ALERT AND ORIENTED X4, POLITE AND COOPERATAIVE WITH CARES. ANSWERS QUESTIONS APPROPRIATELY IN SOFT VOICE. TAKES PILLS WHOLE IN APPLESAUCE FOLLOWED BY NECTAR THICK TEA. K PAD TO RIGHT SHOULDER. TURNED Q2. PT SLEPT WELL OVERNIGHT. INCONTINENT OF URINE X1. NO STOOL THIS SHIFT. CALL LIGHT IN REACH, BED ALARM ON FOR SAFETY. HOURLY ROUNDING N PROGRESS.
[2020-06-26 08:10] VITALS: BP 147/100
[2020-06-26 12:52] VITALS: BP 118/75
--- NOTE | 2020-06-26 15:06 | NUR ---
CM SPOKE TO THE PT AND HER SPOUSE TO DISCUSS ANY QUESTIONS OR CONCERNS THAT THEY MAY HAVE FOR TOMORROWS TEAM CONFRENCE MEETING. PT AND HER SPOUSE HAVE NO QUESTIONS OR CONCERNS AT THIS TIME, BUT ARE AWAITING THE UPDAYE FROM THE MEETING. CM AND PHYSICIAN WILL UPDATE PT AND HER SPOUSE AFTER TOMORROWS TEAM CONFRENCE MEETING. CM WILL REMAIN AVAILABLE TO ASSIST AND FOLLOW NEEDED.
--- NOTE | 2020-06-26 16:50 | NUR ---
PATIENT COMPLETED THERAPIES ORDERED. UP TO CHAIR ALL AFTERNOON. PATIENT ASSISTED TO BSC TO VOID. INCONTINENT OF BM X 4. TURNED Q2. ASSISTED WITH MEALS. TOOK PILLS WHOLE IN APPLESAUCE. HERE THROUGHOUT THE SHIFT.
[2020-06-26 21:00] VITALS: BP 122/86
[2020-06-27 04:18] LABS: HEMATOCRIT 36.7 % (37.0-47.0); HEMOGLOBIN 12.2 gm/dL (12.0-15.0); MCH 29.7 pg (26.0-34.0); MCHC 33.2 g/dL (28.0-37.0); MCV 89.5 fL (80.0-100.0); MPV 7.5 fl. (7.2-11.1); RBC 4.1 mil/uL (4.20-5.00); RDW-CV 16.6 % (10.5-14.5)
[2020-06-27 04:19] LABS: CALCIUM 9.5 mg/dL (8.5-10.1); CREATININE 0.7 mg/dL (0.6-1.3); POTASSIUM 3.3 mmol/L (3.5-5.1)
--- NOTE | 2020-06-27 05:34 | NUR ---
ASSUMED CARES AT 1920. ALERT AND ORIENTED. PLEASANT. MAKING ATTEMPTS TO TALK MORE IN SENTENCES ALTHOUGH SPEECH SLURRED AT TIMES. PILLS WHOLE IN APPLESAUCE WITH NECTAR THICK LIQUIDS. SLEPT WELL. CALL LIGHT IN REACH AND BED ALARM ON.
[2020-06-27 08:00] VITALS: BP 119/62
[2020-06-27 21:00] VITALS: BP 141/74
--- NOTE | 2020-06-28 05:19 | NUR ---
ASSUMED CARES AT 1920. ALERT AND ORIENTED. PLEASANT. ATTEMPTS TO MAKE NEEDS KNOWN. SPEAKING IN SENTENCES. SLURRED SPEECH AT TIMES. DENIED ANY NEED FOR PAIN MEDS. PT ASKED FOR BEDPAN X 1 TO VOID. PT HAD 5 INCONTINENT SOFT/LIQUID STOOLS OVERNIGHT. CDIFF ISOLATION. K+ 3.2 THIS AM. INITIATED REPLACEMENT DOSE. SLEPT OFF AND ON OTHERWISE. CALL LIGHT IN REACH AND BED ALARM ON.
[2020-06-28 08:00] VITALS: BP 122/54
--- NOTE | 2020-06-28 15:32 | NUR ---
TEAM CONFRENCE MEETING HELD YESTERDAY. CM AND PHYSICIAN INFORMED PT AND SPOUSE OF THE MEETING AND PLAN TO RE-TEAM AND HAVE THE PT REMAIN ON THE UNTI AND CONTINUE THEAPIES FOR ANOTHER WEEK. PT AND SPOUSE IN AGREEMENT WITH THE PLAN. PT PROGRESSING TOWARDS GOALS, BUT BARRIERS ARE DECREASED INITIATION, FUNTIONAL WEAKNESS, AND DECREASED SITTING AND STANDING BALANCE. CM WILL REMAIN AVAILABLE TO ASSIST AND FOLLOW NEEDED.
[2020-06-28 20:00] VITALS: BP 143/78
--- NOTE | 2020-06-29 04:42 | NUR ---
ASSUMED PT CARE AT 1930. PT ALERT AND ORIENTED, POLITE AND COOPERATIVE WITH CARES. DENIES PAIN. PT TALKING MORE, SOFTSPOKEN AND SOMETIMES HARD TO UNDERSTAND. PT USED CALL LIGHT TO CALL OUT TO HAVE TEMPERATURE IN ROOM CHANGED. NO STOOL THIS SHIFT. INCONTINENT OF URINE X2. TAKES PILLS WHOLE IN APPLESAUCE FOLLOWED BY NECTAR THICK LIQUIDS. SLEPT WELL OVERNIGHT. CALL LIGHT IN REACH, BED ALARM ON FOR SAFETY.
[2020-06-29 08:48] VITALS: BP 138/93
--- NOTE | 2020-06-29 16:26 | NUR ---
PT WORKED WITH THERAPIES. UP WITH MAX ASSIST. DENIES PAIN. INCONT OF B/B. HERE TO VISIT. XRAY OF R ELBOW/HUMOROUS. RESULTS CALLED TO DR DING. CT SCAN ORDERED PER DR DING. DENIES NEED FOR PAIN MEDICATION.
[2020-06-29 20:00] VITALS: BP 149/92
--- NOTE | 2020-06-30 01:12 | NUR ---
ASSUMED CARE AT 1930. PATIENT RESTING IN BED. FLINGS LEGS OUT OF BED ONCE, WAS INCONTINENT OF URINE AND STOOL. SKIN CARE DONE, MOISTURE BARRIER APPLIED. T SHIRT REMOVED AND GOWN APPLIED PER REQUEST. ASSISTED WITH TURNS. REFUSES PILLOW TO OFFLOAD HEELS. TAKES PILLS WHOLE WITH APPLESAUCE. REFUSED NECTAR THICK LIQUIDS AFTER PILLS. MAKES NEEDS KNOWN. SPEAKING A LITTLE. CALL LITE IN REACH. BED ALARM ON. HOURLY ROUNDS CONTINUE.
--- NOTE | 2020-06-30 05:27 | NUR ---
RESTED IN BED ENTIRE SHIFT. TURNS SELF SOMEWHAT, HELPS WITH CLOTHING CHANGES. INCONTINENT OF URINE NEEDING BED AND LINEN CHANGE TWICE. NO FURTHER INCONTINENCE OF STOOLS OF THIS WRITING. DENIES PAIN. TRYING TO TALK MORE. DRANK 4 OZ OF NECTAR THICK TEA. HOURLY ROUNDS CONTINUE. BED ALARM ON. CALL LITE IN REACH.
[2020-06-30 07:22] VITALS: BP 138/54
--- NOTE | 2020-06-30 16:24 | NUR ---
PT WORKED WITH THERAPIES. UP TO CHAIR WITH MOD ASSIST OF 2. DENIES PAIN. HERE TO VISIT. INCONT OF B/B. PERICARE AND BED CHANGES PRN.
[2020-06-30 19:00] VITALS: BP 108/64
--- NOTE | 2020-06-30 22:55 | NUR ---
ASSUMED CARE AT 1930. PATIENT RESTING IN BED. TURNS EASILY AND OFTENNTO RIGHT SIDE, SOMETIMES SLINGING LEFT LEG OVER SIDE RAILS. CLOSE TO NURSE STATION AND FREQUENT OBSERVATION CONTINUES. TAKES PILLS WHOLE IN APPLESAUCE ONE AT A TIME. INCONTINENT OF URINE, SKIN CARE DONE, MOISTURE BARRIER APPLIED. ASSISTED WITH TURNS. ON C DIFF ISOLATION. DOES SPEAK AT TIMES. RT ARM STILL FLACCID. PATIENT ASSISTED WITH REMOVAL OF T SHIRT AND ASSISTED TO CHANGE INTO HOSPITAL GOWN. NO C/O PAIN. HOURLY ROUNDS CONTINUE. BED ALARM ON. CALL LITE IN REACH.
--- NOTE | 2020-07-01 05:48 | NUR ---
SLEPT OFF AND ON THROUGH THE NIGHT. IMPULSIVE, FLINGS LEGS OVER SIDE RAILS, SEEMS TO BE WHEN SHE WAS INCONTINENT OR WHEN SHE WAS TOO HOT. TEMP IN ROOM ADJUSTED MULTIPLE TIMES. PATIENT ABLE TO TURN SELF NEARLY PRONE. DENIES PAIN. HOURLY ROUNDS CONTINUE. BED ALARM ON. CALL LITE IN REACH.
[2020-07-01 07:41] VITALS: BP 124/84
--- NOTE | 2020-07-01 09:18 | NUR ---
PT ARGUMENTIVE AND REFUSED AM MEDICATIONS.
--- NOTE | 2020-07-01 09:57 | NUR ---
PT TOOK AM MEDS.
--- NOTE | 2020-07-01 15:06 | NUR ---
PT SITTING IN LOUNGE CHAIR.PT STATED THAT SHE WANTED TO GET IN BED. GAIT BELT PLACED ON PT. PT BEGAN SCOOTING HERSELF TO THE EDGE OF THE CHAIR. DIRECTED PT THAT SHE NEEDED TO SCOOT BACK IN THE CHAIR SHE WAS TOO CLOSE TO THE EDGE. PT CONTINUED TO SCOOT OFF THE EDGE OF THE CHAIR AND REFUSED OR WAS UNABLE TO STAND. ZAIRA SPANN ASSISTED THIS NURSE IN LOWERING PT TO THE GROUND WHERE WE USED THE LIFT TO PICK HER UP AND PUT HER BACK IN BED. GLUING PRESSMAN AND DR JAMES NOTIFIED. ALSO NOTIFIED.
--- NOTE | 2020-07-01 16:23 | NUR ---
PT RESTING IN BED. MOVES IN THE BED FREQUENTLY AND REQUIRES REDIRECTION FROM PUTTING HER LEGS OVER THE RAILS. BED ALARM ON. CALL LIGHT IN REACH. FALL PRECAUTIONS IN PLACE.
--- NOTE | 2020-07-01 18:58 | NUR ---
PT THROWING HER LEGS OVER THE BED RAILS. KICKING AT STAFF. PINCHED THE TECH , DION. REFUSES TO REDIRECT. STATES THAT SHE DOESN'T HAVE TO FOLLOW DIRECTIONS AND THAT HER TOLD HER THAT SHE DOESN'T HAVE TO . PT BECAME TEARFUL AND STATED THAT SHE DOES NOT WANT TO BE HERE.
[2020-07-01 20:59] VITALS: BP 145/91
--- NOTE | 2020-07-01 22:29 | NUR ---
ASSUMED CARE AT 1920. PATIENT RESTING IN BED. TURNS SELF TO SIDE, REFUSES TO TURN TO RIGHT SIDE. WITH CUEING, ABLE TO USE LEFT ARM TO PULL UP SELF IN BED A LITTLE USING HOB RAILS, BUT REALLY NEEDS TWO TO PULL HER UP IN BED. SOME MOVEMENT NOTED IN RIGHT FINGERS AND HAND. SPEECH IMPROVING, SOFT, BUT AUDIBLE. TAKE PILLS WHOLE WITH APPLESAUCE ONE AT A TIME. REFUSED HOSPITAL GOWN TONIGHT. NO C/O PAIN. CALL LITE IN REACH. BED ALARM ON. HOURLY ROUNDS CONTINUE.
--- NOTE | 2020-07-02 05:31 | NUR ---
RESTED IN BED ALL NIGHT BUT WAS RESTLESS MUCH OF NIGHT. ABLE TO MOVE BOTH LEGS AND MOVING RIGHT ARM SOME. CLOSE OBSERVATION AT TIMES DUE TO RESTLESSNESS AND PREVIOUS IMPULSIVE BEHAVIOR. APPEARS TO BE SLEEPING SINCE AROUND 0500. CALL LITE IN REACH. BED ALARM ON. HOURLY ROUNDS CONTINUE.
[2020-07-02 07:31] VITALS: BP 142/79
--- NOTE | 2020-07-02 16:06 | NUR ---
PT WORKED WITH THERAPIES. UP WITH ASSIST X2 AND QUAD CANE. REMAINS ON PRECAUTIONS FOR CDIFF. INCONT OF B/B. HERE TO VISIT. FALL PRECAUTIONS IN PLACE INCLUDING BED/CHAIR ALARMS. CALL LIGHT IN REACH.
[2020-07-02 19:00] VITALS: BP 146/82
--- NOTE | 2020-07-02 20:00 | NUR ---
RESTLESS. SWINGING A LEG OVER THE BEDRAILS. STATES ITS TOO HOT AND ASKED FOR ROOM TEMPERATURE TO BE DECREASED WHICH WAS DONE. TOOK MEDICATIONS WHOLE ONE AT A TIME WITH APPLESAUCE. CALL LIGHT WITHIN REACH.
--- NOTE | 2020-07-03 04:53 | NUR ---
UP TO BEDSIDE COMMODE WITH MAXIMUM ASSIST OF TWO, GAITBELT, STAND, PIVOT. JOURDAN CARE COMPLETED BY STAFF. IMPULSIVE. WHEN NEEDS TO VOID TRIES TO GET OUT OF BED ON HER OWN INSTEAD OF CALLING FOR ASSISTANCE. HOURLY ROUNDING IN PROGRESS.
[2020-07-03 07:50] VITALS: BP 140/77
--- NOTE | 2020-07-03 17:46 | NUR ---
PATIENT COMPLETED THERAPIES THIS SHIFT. UP WITH MAX ASSISTANCE TO CHAIR, GAIT BELT AND WALKER. NO COMPLAINTS OF PAIN. GOOD APPETITE THIS SHIFT. BM NOTED X 2. VOIDING PER BSC BUT INCONTINENT AT TIMES.
[2020-07-03 20:00] VITALS: BP 121/71
[2020-07-04 03:56] LABS: HEMATOCRIT 36.8 % (37.0-47.0); HEMOGLOBIN 12.1 gm/dL (12.0-15.0); MCH 29.6 pg (26.0-34.0); MCHC 32.8 g/dL (28.0-37.0); MCV 90.2 fL (80.0-100.0); MPV 7.6 fl. (7.2-11.1); RBC 4.08 mil/uL (4.20-5.00); RDW-CV 16.9 % (10.5-14.5)
[2020-07-04 04:07] LABS: CALCIUM 9.1 mg/dL (8.5-10.1); CREATININE 0.8 mg/dL (0.6-1.3)
--- NOTE | 2020-07-04 05:09 | NUR ---
ASSUMED PT CARE AT 1930. PT ALERT AND ORIENTED TO SELF. C/O PAIN TO RIGHT ANKLE WHICH APPEARED SLIGHTLY SWOLLEN. TYLENOL GIVEN. TAKES PILLS WHOLE IN APPLESAUCE FOLLOWED BY NECTAR THICKENED TEA. PT INCONTINENT OF URINE X1, BUT LATER CALLED OUT TO BE PLACED ON BEDPAIN AND VOIDED. NO STOOL THIS SHIFT. PT RESTLESS, THROWING HER LEGS OVER THE BEDRAIL. CHANGED HER OUT OF HER TSHIRT AND INTO GOWN, COVERED WITH TWO SHEETS PER PT REQUEST AND SHE RETURNED TO SLEEP. PT PREFERS THINNER GOWN WITH METAL SNAPS. CALL LIGHT IN REACH, BED ALARM ON FOR SAFETY. HOURLY ROUNDING IN PROGRESS, WILL CONTINUE TO MONITOR.
[2020-07-04 08:23] VITALS: BP 137/77
--- NOTE | 2020-07-04 18:45 | NUR ---
ASSESSMENT COMPLETED DOCUMENTED THIS MORNING. PATIENT CONTINUES TO PROGRESS WELL WITH THERAPIES. K+ 3.0 AT 1300 AFTER 2 DOSES OF K+ 40mEq. ADDITIONAL DOSE OF K+ 40mEq GIVEN AT 1840. PATIENT HAS REMAINED CONTINENT OF BOWEL AND BLADDER REQUESTING BSC WHEN NEEDING TO TOILET. IN THIS AFTERNOON AND BROUGHT DINNER IN FOR HER.
[2020-07-04 19:48] VITALS: BP 119/74
--- NOTE | 2020-07-05 06:14 | NUR ---
ASSUMED PT CARE AT 1930. PT ALERT AND ORIENTED, POLITE AND COOPERATIVE WITH CARES. PT MORE TALKATIVE, ABLE TO EXPRESS NEEDS GIVEN TIME. TAKES PILLS WHOLE IN APPLESAUCE WITHOUT DIFFICULTY FOLLOWED BY NECTAR THICK TEA. DENIED PAIN ON ASSESSMENT. INCONTIENT OF URINE X2. NO STOOL THIS SHIFT. USING CALL LIGHT APPROPRIATELY AT TIMES. CALL LIGHT IN REACH AND BED ALARM ON FOR SAFETY. HOURLY ROUNDING COMPLETE.
[2020-07-05 07:44] VITALS: BP 125/64
--- NOTE | 2020-07-05 18:45 | NUR ---
ASSESSMENT COMPLETED DOCUMENTED THIS MORNING. PATIENT IS PROGRESSING VERY WELL WITH THERAPY AT TIMES REQUIRING ONLY ONE ASSIST TO TRANSFER. HYDROCORTISONE CREAM ORDERED FOR FEET REDNESS AND ITCHING. VANCOMYCIN 125MG CAPS ORDERED QID FOR CONTINUED STOOLS CONSISTENT WITH CDIFF.
[2020-07-05 20:00] VITALS: BP 137/87
[2020-07-06 04:11] LABS: CREATININE 0.7 mg/dL (0.6-1.3); POTASSIUM 3.3 mmol/L (3.5-5.1)
--- NOTE | 2020-07-06 05:50 | NUR ---
ASSUMED CARES AT 1920. ALERT AND ORIENTED. PLEASANT. MUCH IMPROVEMENT WITH SPEECH. ABLE TO MAKE NEEDS KNOWN. EXPRESSES SELF FREQUENTLY. MAX ASSIST X 2 PERSON. GAIT BELT. UP TO [facility]. K+ 3.3. REPLACEMENT INITIATED. RESTLESS MOST OF THE NIGHT. SLEPT LITTLE. CALL LIGHT IN REACH AND BED ALARM ON.
[2020-07-06 07:50] VITALS: BP 142/86
--- NOTE | 2020-07-06 15:10 | NUR ---
I have reviewed the documentation by THOMAS JORDAN from 07/02/20 to 07/06/20 and I concur with it. TASIA JAVIER
--- NOTE | 2020-07-06 16:24 | NUR ---
PATIENT COMPLETED THERAPIES ORDERED. PATIENT UP RECLINER THIS SHIFT. AT BEDSIDE THROUGHOUT THE SHIFT. PATIENT HAD LARGE BM VIA BSC AND HAD ONE SMALL INCONTINENT BM, BOTH SOFT. VANCOMYCIN DC'D PER DR. MOMIN. PATIENT VOIDING VIA BSC. UP WITH ASSISTANCE OF 1-2 AND USE OF CANE. PATIENT TOOKS PILLS WHOLE WITH WATER, PATIENT DID COUGH A COUPLE TIMES AND ST NOTIFIED.
[2020-07-06 21:30] VITALS: BP 144/83
--- NOTE | 2020-07-07 01:55 | NUR ---
ASSUMED CARE AT 1920. PATIENT RESTING IN BED. ISOLATION FOR C DIFF CONTINUES. TAKES PILLS ONE AT A TIME WITH WATER. TURNS SELF IN BED, PREFERRING TO LIE ON RIGHT SIDE. ALSO FLUNG LEGS OVER THE SIDE OF THE BED, SETTING OFF BED ALARM. WAS INCONTINENT OF URINE. SKIN CARE DONE, LINENS AND PADS CHANGED. HYDROCORTISONE APPLIED TO RASH ON BILAT FEET. REFUSED VOLTAREN GEL. NO C/O PAIN. BED ALARM ON. HOURLY ROUNDS CONTINUE. CALL LITE IN REACH.
--- NOTE | 2020-07-07 06:09 | NUR ---
SLEPT MOST OF THE NIGHT EXCEPT WHEN INCONTINENT. LINENS, CLOTHING, CHANGED, SKIN CARE DONE AND MOISTURE BARRIER APPLIED. TURNS SELF, EITHER SIDE. NO C/O PAIN. BED ALARM ON. HOURLY ROUNDS CONTINUE. CALL LITE IN REACH.
[2020-07-07 07:18] VITALS: BP 144/83
--- NOTE | 2020-07-07 16:24 | NUR ---
TEAM CONFRENCE MEETING HELD THIS WEEK. CM INFORMED PT AND SPOUSE OF MEETING AND PLAN TO RE-TEAM AND HAVE PT REMAIN ON THE UNIT FOR ANOTHER WEEK. PT AND SPOUSE IN AGREEMENT WITH PLAN. CM WILL REMAIN AVAILABLE TO ASSIST AND FOLLOW NEEDED.
--- NOTE | 2020-07-07 17:29 | NUR ---
ASSESSMENT COMPLETED DOCUMENTED THIS MORNING. PATIENT RECD A SPECIAL VISIT TODAY FROM HER CHILDREN ACCOMPANIED BY THIS MORNING AND THEN AGAIN THIS AFTERNOON. SPENT ABOUT AN HOUR IN THE DINING ROOM WITH HER FAMILY EATING AND CONVERSING VERY CLEARLY. HAS BEEN BOTH CONT AND INCONT OF B&B TODAY. WHEN FAMILY LEFT THIS MORNING PATIENT ASKED NURSE TO CALL HER FOR SOME XTRA LARGE PANTS. THIS NURSE DIALED THE NUMBER AND PATIENT TALKED TO HER HERSELF VERY CLEAR AND DEFINED TO REQUEST PANTS.
[2020-07-07 20:00] VITALS: BP 122/68
--- NOTE | 2020-07-08 04:53 | NUR ---
ASSUMED PT CARE AT 1930. PT ALERT AND ORIENTED X4, POLITE AND COOPERATIVE WITH CARES. PT ABLE TO EXPRESS HERSELF CLEARLY, USES CALL LIGHT APPROPRIATELY. TAKES PILLS WHOLE IN APPLESAUCE. TURNS HERSELF IN BED. SLEPT WELL OVERNIGHT EXCEPT WHEN INCONTINENT. PERICARE PROVIDED. CALL LIGHT IN REACH, BED ALARM ON FOR SAFETY. HOURLY ROUNDING IN PROGRESS, WILL CONTINUE TO MONITOR.
[2020-07-08 07:36] VITALS: BP 146/86
--- NOTE | 2020-07-08 17:37 | NUR ---
ASSESSMENT COMPLETED DOCUMENTED THIS MORNING. AND CHILDREN IN TO VISIT AGAIN TODAY APPROVED BY ADMINISTRATION. ENJOYED LUNCH IN THE DINING ROOM AT THE TABLE WITH HER FAMILY. NOTED PATIENT WITH INCREASED FREQUENCY USING THE BSC TODAY FOR VOIDING SMALL AMOUNTS. TYLENOL 650MG X2 TODAY FOR C/O RIGHT ARM/SHOULDER PAIN....RELIEF NOTED.
[2020-07-08 20:00] VITALS: BP 146/69
[2020-07-09 04:08] LABS: HEMATOCRIT 35.2 % (37.0-47.0); HEMOGLOBIN 11.7 gm/dL (12.0-15.0); MCH 29.8 pg (26.0-34.0); MCHC 33.2 g/dL (28.0-37.0); MCV 89.6 fL (80.0-100.0); MPV 7.1 fl. (7.2-11.1); RBC 3.92 mil/uL (4.20-5.00); RDW-CV 16.7 % (10.5-14.5); WBC 7.4 thou/uL (4.0-11.0)
[2020-07-09 04:21] LABS: CALCIUM 9.1 mg/dL (8.5-10.1); CREATININE 0.7 mg/dL (0.6-1.3)
--- NOTE | 2020-07-09 05:14 | NUR ---
ASSUMED PT CARE AT 1930. PT SITTING UP IN RECLINER, TRANSFERRED TO BED WITH ASSIST OF TWO, GAIT BELT AND WALKER. PT TALKING MORE. USES CALL LIGHT APPROPRIATELY. PILLS WHOLE IN APPLESAUCE FOLLOWED BY NECTAR THICK TEA. TURNS HERSELF IN BED. SLEPT WELL OVERNIGHT EXCEPT WHEN INCONTINENT. PERICARE PROVIDED. CALL LIGHT IN REACH, BED ALARM ON FOR SAFETY. HOURLY ROUNDING IN PROGRESS, WILL CONTINUE TO MONITOR.
[2020-07-09 08:00] VITALS: BP 145/80
--- NOTE | 2020-07-09 16:25 | NUR ---
ALERT AND ORIENTED X4. UP WITH 2 ASSIST, GAIT BELT AND QUAD CANE. HAS LEFT SIDED WEAKNESS. TYLENOL GIVEN FOR RIGHT SHOULDER PAIN. INCONTINENT OF URINE AT TIMES. NO BM TODAY. REMAINS ON ISOLATION. TAKES PILLS WHOLE WITH WATER WITHOUT DIFFICULTY. CALL LIGHT WITHIN REACH. BED ALARM AND CHAIR ALARM USED.
--- NOTE | 2020-07-09 18:33 | NUR ---
0545 PATIENT WAS GOTTEN UP TO BEDSIDE COMMODE. SUPPER THEN ARRIVED BUT PATIENT REFUSED TO EAT (HAD EATTEN WITH EARLIER IN EVENING). PATIENT USED CALL LIGHT TO CALL OUT SEVERAL TIMES AFTER THAT BUT WOULD NOT TALK WITH STAFF WANTED TO TALK WITH THERAPY. SHE WAS TOLD THERAPY WAS NOT HERE NOW BUT WOULD BE HERE TOMMORROW. 1814 PATIENT WAS FOUND TRYING TO GET OUT OF BED AT FOOT OF BED BETWEEN SIDERAIL. PATIENT WAS PULLED BACK UP IN BED WITH BED ALARM ON. WHEN ASKED WHAT SHE WAS TRYING TO DO SHE SAID SHE WAS TRYING TO LEAVE TO GO HOME. SHE SAID SHE DIDN'T WANT TO BE HERE SHE WANTED TO GO HOME. SHE SAID OTHER PEOPLE GET TO GO HOME. I TOLD PATIENT SHE IS GETTING STRONGER AND WE ARE TRYING TO GET HER STRONG ENOUGH TO BE ABLE TO GO HOME. I ASKED HER IF THERE WAS ANYTHING I COULD DO FOR HER AND SHE SAID NO. I ASKED HER IF SHE WAS HURING AND SHE SAID NO. I ASKED HER IF SHE WANTED ME TO CALL HER /FAMILY SO SHE COULD TALK TO THEM AND SHE SAID NO.
[2020-07-09 21:00] VITALS: BP 133/60
--- NOTE | 2020-07-10 05:32 | NUR ---
ASSUMED CARES AT 1920. ALERT AND ORIENTED. IMPULSIVE. AT TIMES CAN BE UNCOOPERATIVE. SLEPT SOME BUT WHEN AWAKE PT IS RESTLESS AND SHIFTING SELF ALL OVER BED WITH LEG/ARM OVER BED RAILS. PT DENIED ANY NEEDS WHEN ASKED. ISOLATION FOR CDIFF. MAX ASSIST X 2 PERSON GAIT BELT UP TO [facility] [place] BUT DID HAVE URINARY INCONTINENCE WELL. LACKS INSIGHT FOR SAFETY CONCERNS DURING TRANSFERS. RUSHES HERSELF GETTING INTO BED. CALL LIGHT IN REACH AND BED ALARM ON.
[2020-07-10 08:00] VITALS: BP 140/98
--- NOTE | 2020-07-10 16:19 | NUR ---
PATIENT COMPLETED THERAPIES ORDERED. AT BEDSIDE. PATIENT AMBULATED IN HALLS WITH THERAPY. PATIENT DID AMBULATED WITH NURSING STAFF TO BATHROOM BUT STATED SHE FELT DIZZY ON THE WAY BACK TO BED, ASSISTED INTO WHEELCHAIR. PATIENT STATED SHE FELT TIRED THIS AFTERNOON AFTER THERAPY. PRN TYLENOL AND VOLTAREN GEL GIVEN PRIOR TO THERAPY THIS AM. BM NOTED THIS SHIFT. UP WITH ASSISTANCE OF 2, USE OF QUAD CANE AND GAIT BELT.
[2020-07-10 20:00] VITALS: BP 139/76
[2020-07-11 04:46] LABS: HEMATOCRIT 35.6 % (37.0-47.0); HEMOGLOBIN 11.7 gm/dL (12.0-15.0); MCH 29.6 pg (26.0-34.0); MCHC 32.8 g/dL (28.0-37.0); MCV 90.2 fL (80.0-100.0); MPV 7.4 fl. (7.2-11.1); RBC 3.95 mil/uL (4.20-5.00); RDW-CV 16.8 % (10.5-14.5); WBC 8.4 thou/uL (4.0-11.0)
--- NOTE | 2020-07-11 04:58 | NUR ---
ASSUMED CARES AT 1920. ALERT AND ORIENTED. RESTLESS WHEN AWAKE. RIGHT SIDE WEAKNESS. DENIED ANY NEED FOR PAIN MEDS. MAX ASSIST X 2 PERSON. UP TO BSC. URINARY INCONTINENCE WELL. ABLE TO MAKE NEEDS KNOWN. SLEPT MOST OF THE NIGHT. CALL LIGHT IN REACH AND BED ALARM ON.
[2020-07-11 05:02] LABS: CALCIUM 9.6 mg/dL (8.5-10.1); CREATININE 0.7 mg/dL (0.6-1.3); POTASSIUM 3.3 mmol/L (3.5-5.1)
[2020-07-11 07:50] VITALS: BP 147/74
--- NOTE | 2020-07-11 16:00 | NUR ---
TEAM CONFRENCE MEETING HELD TODAY. CM INFORMED PT AND SPOUSE OF MEETING AND PLAN TO RE-TEAM AND HAVE THE PT REMAIN IN THE UNIT FOR ANOTHER WEEK AND CONTINUE THERAPIES. PT AND SPOUSE IN AGREEMENT WITH THE PLAN. PT PROGRESSING TOWARDS GOALS, BUT BARRIERS ARE DECREASED STANDING BALANCE, RLE COORDINATION, RIGHT ARM PAIN, AND IMPULSIVITY. CM WILL REMAIN AVAILABLE TO ASSIST AND FOLLOW NEEDED.
--- NOTE | 2020-07-11 16:12 | NUR ---
PATIENT COMPLETED THERAPIES THIS SHIFT ORDERED. UP WITH ASSISTANCE OF 2, GAIT BELT AND CANE. PRN TYLENOL AND VOLTAREN GEL GIVEN THIS AM PRIOR TO REHAB. NO INCONTINENCE NOTED THIS SHIFT, VOIDING PER BSC. NO BM NOTED THIS SHIFT. DR. GREWAL NOTIFIED THAT PATIENT BECOMING AGRESSIVE AND ACTING OUT AT END OF SHIFTS PER DR. DING NOTIFY MEDICINE, NOTIFIED VIA YOU CALL WITH NO NEW ORDERS AT THIS TIME. POTASSIUM 3.3 THIS AM, REPLACED PER PROTOCOL AND REDRAW AT 1900.
[2020-07-11 20:16] VITALS: BP 113/54
--- NOTE | 2020-07-12 07:11 | NUR ---
ASSUMED PT CARE AT 1930. ASSESSMENT COMPLETED CHARTED. ABLE TO MAKE NEEDS KNOWN. UP WITH 2 ASSIST. NO C/O PAIN OR DISCOMFORT. RESTING IN BED COMFORTABLY AT THIS TIME. CONTINENT OF BLADDER AND USED BEDPAN. WILL CONTINUE TO MONITOR.
[2020-07-12 08:00] VITALS: BP 144/70
--- NOTE | 2020-07-12 13:44 | NUR ---
PATIENTS HERE THIS AM, UPDATED ON PLAN OF CARE. PATIENTS HERE WHILE DR. TOÑA ISBELL.
--- NOTE | 2020-07-12 16:23 | NUR ---
PATIENT COMPLETED THERAPIES ORDERED. AT BEDSIDE. PATIENT GIVEN PRN TYLENOL AND VOLTAREN GEL X 2 FOR RIGHT SHOULDER/ARM PAIN. SPOKE WITH DR. GREWAL REGARDING POTASSIUM LEVEL AND NIGHT TIME BEHAVIORS. ORDERS RECEIVED FOR HS ZOLOFT AND SCHED POTASSIUM DOSAGE INCREASED. PATIENT UP AMBULATING IN HALLS WITH PT. UP TO BSC WITH ASSISTANCE AND USE OF GAIT BELT AND CANE; NO INCONTINENCE NOTED THIS SHIFT.
[2020-07-12 19:45] VITALS: BP 105/63
--- NOTE | 2020-07-13 04:43 | NUR ---
ASSUMED PT CARE AT 1930. PT ALERT AND ORIENTED X4. PT ABLE TO EXPRESS HERSELF SOMETIMES. PT WITH RIGHT SIDE WEAKNESS. PT SLEPT OFF AND ON. RESTLESS WHEN AWAKE, THROWING CHUX AND LINENS ON THE FLOOR. TURNS SELF IN BED. VOIDED PER BEDPAN ONCE, INCONTINENT OF URINE TWICE AND INCONTINENT OF BOWEL X1. CALL LIGHT IN REACH, BED ALARM ON FOR SAFETY. HOURLY ROUNDING IN PROGRESS, WILL CONTINUE TO MONITOR.
[2020-07-13 08:30] VITALS: BP 135/73
--- NOTE | 2020-07-13 14:12 | NUR ---
I have reviewed the documentation by THOMAS JORDAN from 07/09/20 to 07/13/20 and I concur with it. TASIA JAVIER
--- NOTE | 2020-07-13 17:15 | NUR ---
ALERT AND ORIENTED X4. VERBALLY ABLE TO LET WANTS AND NEEDS BE KNOWN. UP WITH 1-2 ASSIST, GAIT BELT AND QUAD CANE. CAN AMBULATE TO AND FROM BATHROOM WITH QUAD CANE, GAIT BELT AND 2 ASSIST. TAKES PILLS WHOLE AND IN APPLESAUCE. TAKES THIN LIQUIDS WITHOUT DIFFICULTY. USES TYLENOL AND VOTAREN GEL FOR RIGHT SHOULDER PAIN. HAS RIGHT SIDED WEAKNESS. FALL PRECAUTIONS IN PLACE. BED ALARM AND CHAIR ALARM USED. CALL LIGHT WITHIN REACH.
[2020-07-13 20:00] VITALS: BP 150/83
--- NOTE | 2020-07-14 05:16 | NUR ---
ASSUMED PT CARE AT 1930. PT ALERT AND ORIENTED X4, POLITE AND COOPERATIVE WITH CARES. PT MORE TALKATIVE THAN LAST NIGHT, ABLE TO MAKE NEEDS KNOWN. USING CALL LIGHT APPROPRIATELY. UP TO BSC WITH ASSIST OF 1-2 SEVERAL TIMES TO VOID AND STOOL X1 THIS SHIFT. TAKES PILLS WHOLE ONE AT A TIME WITH WATER WITHOUT DIFFICULTY. RIGHT SIDED WEAKNESS PERSISTS. AT 0300 PT RESTLESS AND DIAPHORETIC. BLOOD SUGAR 107. PT C/O STOMACHE ACHE SAYING IT WAS SOMETHING SHE ATE. TYLENOL GIVEN WITH SPRITE. PT BACK TO SLEEP. CALL LIGHT IN REACH, BED ALARM ON FOR SAFETY. HOURLY ROUNDING IN PROGRESS, WILL CONTINUE TO MONITOR.
[2020-07-14 08:15] VITALS: BP 148/94
--- NOTE | 2020-07-14 16:24 | NUR ---
ALERT AND ORIENTED X4. HAS SOFT VOICE BUT ABLE TO LET WANTS AND NEEDS BE KNOWN. REFUSED PAIN MEDICATION WHEN OFFERED. AMBULATES WITH 2 ASSIST, GAIT BELT AND QUAD WALKER DUE TO RIGHT SIDED WEAKNESS. CONTINENT AND BOWEL AND BLADDER. USES CALL LIGHT FOR ASSIST. FALL PRECAUTIONS IN PLACE. BED ALARM AND CHAIR ALARM USED.
[2020-07-14 20:00] VITALS: BP 122/94
--- NOTE | 2020-07-15 05:14 | NUR ---
ASSUMED CARES AT 1920. ALERT AND ORIENTED. ABLE TO MAKE NEEDS KNOWN. SPEECH IMPROVED. REFUSED ANY PAIN MEDS. 1-2 PERSON ASSIST. GAIT BELT AND CANE. UP TO BSC. CONTINENT THUS FAR. PT REFUSED TO SLEEP WITH ANY CLOTHING ON. SLEPT WELL. CALL LIGHT IN REACH AND BED ALARM ON.
[2020-07-15 08:00] VITALS: BP 132/69
--- NOTE | 2020-07-15 17:58 | NUR ---
ALERT AND ORIENTED X4. HAS SOFT VOICE AT TIME DIFFICULT TO UNDERSTAND. DENIES NEED FOR PAIN MEDICATION. UP WITH 1-2 ASSIST, QUAD CANE AND GAIT BELT. CONTINENT OF BOWEL AND BLADDER. USES CALL LIGHT FOR ASSIST. FALL PRECAUTIONS IN PLACE BED ALARM AND CHAIR ALARMS USED.
[2020-07-15 20:03] VITALS: BP 131/78
[2020-07-16 03:30] VITALS: BP 142/69
--- NOTE | 2020-07-16 06:02 | NUR ---
ASSUMED CARES AT 1920. ALERT AND ORIENTED. PLEASANT. 1-2 PERSON ASSIST WITH GAIT BELT AND WALKER. UP TO BSC. THIS AM PT C/O BACK AND HEADACHE PAIN. PAIN MEDS GIVEN. RESTING AT THIS TIME. SLEPT MOST OF THE NIGHT. CALL LIGHT IN REACH AND BED ALARM ON.
[2020-07-16 08:00] VITALS: BP 149/98
--- NOTE | 2020-07-16 16:02 | NUR ---
CM SPOKE TO THE PT AND HER SPOUSE TO DISCUSS ANY QUESTIONS OR CONCERNS THAT THEY MAY HAVE FOR THIS WEEKS TEAM CONFRENCE MEETING. PT AND SPOUSE HAVE NO QUETIONS OR CONCERNS AT THIS TIME. CM WILL REMAIN AVAILABLE TO ASSIST AND FOLLOW NEEDED.
--- NOTE | 2020-07-16 18:16 | NUR ---
ASSESSMENT COMPLETED DOCUMENTED THIS MORNING. PATIENT STATED EARLY THIS MORNING "I JUST DON'T FEEL GOOD TODAY." C/O HEADACHE WHICH 2 325MG ACETAMINOPHEN WERE GIVEN AT BREAKFAST FOR. DICLOFENAC GEL USED ON RIGHT SIDE UNDER ARM D/T SORENESS FROM THERAPY WITH RELIEF NOTED. HAS ALSO REC'D TIZANIDINE 2MG X1 AT 1350 FOR RIGHT SIDE PAIN AND RELIEF WAS NOTED, PATIENT FELL ASLEEP COMFORTABLY FOR AWHILE. CONTINUES TO PROGRESS WITH THERAPY.
[2020-07-16 19:25] VITALS: BP 137/77
--- NOTE | 2020-07-17 05:09 | NUR ---
ASSUMED CARES AT 1920. ALERT AND ORIENTED. PLEASANT. C/O HEADACHE AND RIGHT ARM PAIN. PAIN MEDS GIVEN NEEDED. MAX ASSIST X 2 PERSON. GAIT BELT. UP TO BSC. SLEPT MOST OF THE NIGHT. CALL LIGHT IN REACH AND BED ALARM ON.
[2020-07-17 08:34] VITALS: BP 142/90
--- NOTE | 2020-07-17 18:33 | NUR ---
ASSESSMENT COMPLETED DOCUMENTED THIS MORNING. PATIENT CONTINUES TO PARTICIPATE WITH THERAPY BUT HAS SLOWED WITH HER PROGRESS. RESTING IN BED BETWEEN SESSIONS. TIZANIDINE 2MG PO GIVEN X1 TODAY FOR RIGHT ARM PAIN AND DISCOMFORT.
[2020-07-17 19:35] VITALS: BP 109/59
[2020-07-18 04:17] LABS: CALCIUM 9.4 mg/dL (8.5-10.1); CREATININE 0.8 mg/dL (0.6-1.3); POTASSIUM 3.1 mmol/L (3.5-5.1)
[2020-07-18 04:18] LABS: HEMATOCRIT 36.8 % (37.0-47.0); HEMOGLOBIN 12.1 gm/dL (12.0-15.0); MCH 29.6 pg (26.0-34.0); MCHC 32.9 g/dL (28.0-37.0); MCV 90.1 fL (80.0-100.0); MPV 7.5 fl. (7.2-11.1); RBC 4.09 mil/uL (4.20-5.00); RDW-CV 16.3 % (10.5-14.5); WBC 8.3 thou/uL (4.0-11.0)
--- NOTE | 2020-07-18 06:00 | NUR ---
ASSUMED PT CARE AT 1930. ASSESSMENT COMPLETED CHARTED. ABLE TO MAKE NEEDS KNOWN. UP WITH 1-2 TO BS, TURNS SELF IN BED. NO C/O PAIN OR DISCOMFORT. RESTING IN BED AT THIS TIME. WILL CONTINUE TO MONITOR.
[2020-07-18 07:50] VITALS: BP 150/90
--- NOTE | 2020-07-18 16:13 | NUR ---
PATIENT COMPLETED THERAPIES ORDERED. PRN TYLENOL AND VOLTAREN GEL GIVEN THIS AM FOR THERAPY. PRN TIZANIDIN GIVEN THIS AFTERNOON PER PATIENT REQUEST. AT BEDSIDE. TEAM MEETING THIS SHIFT, RETEAM. UP WITH ASSISTANCE TO BATHROOM, GAIT BELT AND WALKER. POTASSIUM 3.1 THIS SHIFT, REPLACING PER ELECTROLYTE PROTOCOL AND REDRAW AT 1830.
[2020-07-18 19:00] VITALS: BP 130/67
--- NOTE | 2020-07-19 04:43 | NUR ---
ASSUMED PT CARE AT 1930. PT ALERT AND ORIENTED X4, POLITE AND COOPERATIVE WITH CARES. ABLE TO MAKE NEEDS KNOWN. PT TAKES PILLS WHOLE A FEW AT A TIME WITH APPLESAUCE. UP WITH 1-2 TO BSC. TURNS SELF IN BED. DENIES PAIN. PT SLEPT WELL OVERNIGHT. CALL LIGHT IN REACH, BED ALARM ON FOR SAFETY. HOURLY ROUNDING IN PROGRESS, WILL CONTINUE TO MONITOR.
[2020-07-19 07:50] VITALS: BP 147/84
--- NOTE | 2020-07-19 15:16 | NUR ---
TEAM CONFRENCE MEETING HELD YESTERDAY. CM AND PHYSICIAN INFORMED PT AND SPOUSE ABOUT THE MEETING AND PLAN TO RE-TEAM AND HAVE THE PT REMAIN ON THE UNIT TO CONTINUE THERAPIES FOR ANOTHER WEEK. PT AND SPOUSE IN AGREEMENT WITH THE PLAN. CM WILL REMAIN AVAILABLE TO ASSIST AND FOLLOW NEEDED.
--- NOTE | 2020-07-19 16:26 | NUR ---
PATIENT COMPLETED THERAPIES ORDERED THIS SHIFT. PATIENT C/O NAUSEA AND HEADACHE THIS SHIFT, PRN TYLENOL AND VOLTAREN GEL GIVEN THIS AM PRIOR TO THERAPY. DR. DING AND DR. STYLES NOTIFIED OF HEADACHE. PATIENT DID REQUEST BETWEEN THERAPY TO LIE DOWN IN BED, PATIENT GIVEN OTHER OPTIONS SUCH RECLINING BUT REFUSED AND CONTINUED TO CALL OUT TO GET BACK IN BED. PATIENT HERE THIS AFTERNOON, UPDATED ON PLAN OF CARE. DR. STYLES NOTIFIED OF LOW POTASSIUM AND REPLACMENT FROM PREVIOUS DAY. AM LABS FOR TOMORROW.
[2020-07-19 19:33] VITALS: BP 140/84
[2020-07-20 04:15] LABS: HEMATOCRIT 36.5 % (37.0-47.0); MCH 29.8 pg (26.0-34.0); MCHC 32.8 g/dL (28.0-37.0); MCV 90.7 fL (80.0-100.0); MPV 7.2 fl. (7.2-11.1); RBC 4.02 mil/uL (4.20-5.00); RDW-CV 16.2 % (10.5-14.5)
[2020-07-20 04:28] LABS: CALCIUM 9.3 mg/dL (8.5-10.1); CREATININE 0.7 mg/dL (0.6-1.3); MAGNESIUM 1.8 mg/dL (1.8-2.4); POTASSIUM 3.4 mmol/L (3.5-5.1)
--- NOTE | 2020-07-20 05:06 | NUR ---
ASSUMED PT CARE AT 1930. PT ALERT AND ORIENTED X4, POLITE AND COOPERATIVE WITH CARES. ABLE TO MAKE NEEDS KNOWN. TAKES PILLS WHOLE A FEW AT A TIME WITH APPLESAUCE. UP TO BSC WITH ASSIST OF 1-2, GAIT BELT AND WALKER. STOOL X1. TURNS HERSELF IN BED. DENIES PAIN. SLEPT WELL OVERNIGHT. CALL LIGHT IN REACH, BED ALARM ON FOR SAFETY. HOURLY ROUNDING IN PROGRESS, WILL CONTINUE TO MONITOR.
[2020-07-20 07:30] VITALS: BP 134/92
--- NOTE | 2020-07-20 15:24 | NUR ---
I have reviewed the documentation by LILY JORDAN from 07/16/20 to 07/20/20 and I concur with it. TASIA JAVIER
--- NOTE | 2020-07-20 16:16 | NUR ---
PT WORKED WITH THERAPIES. UP WITH ASSISTANCE, GAIT BELT AND QUAD CANE. TAKING PILLS WHOLE WITH WATER. DENIES PAIN. HERE TO VISIT. BED/CHAIR ALARMS ON NEEDED.
[2020-07-20 20:00] VITALS: BP 149/85
[2020-07-21 04:07] LABS: HEMOGLOBIN 11.7 gm/dL (12.0-15.0); MCH 29.7 pg (26.0-34.0); MCHC 32.6 g/dL (28.0-37.0); MCV 91.1 fL (80.0-100.0); MPV 7.4 fl. (7.2-11.1); RBC 3.95 mil/uL (4.20-5.00); RDW-CV 16.1 % (10.5-14.5); WBC 7.9 thou/uL (4.0-11.0)
[2020-07-21 04:22] LABS: CALCIUM 9.5 mg/dL (8.5-10.1); CREATININE 0.7 mg/dL (0.6-1.3); POTASSIUM 3.5 mmol/L (3.5-5.1)
--- NOTE | 2020-07-21 04:39 | NUR ---
ASSUMED PT CARE AT 1930. PT ALERT AND ORIENTED X4, POLITE AND COOPERATIVE WITH CARES. TAKES PILLS WHOLE WITH WATER BUT PREFERS APPLESAUCE. ABLE TO MAKE NEEDS KNOWN. UP TO BSC WITH ASSIST OF 1-2, GAIT BELT AND WALKER. NO STOOL THIS SHIFT. TURNS HERSELF IN BED. DENIES PAIN. SLEPT WELL OVERNIGHT. CALL LIGHT IN REACH, BED ALARM ON FOR SAFETY. HOURLY ROUNDING IN PROGRESS, WILL CONTINUE TO MONITOR.
[2020-07-21 07:50] VITALS: BP 146/85
--- NOTE | 2020-07-21 16:14 | NUR ---
PATIENT COMPLETED THERAPIES THIS SHIFT. UP TO CHAIR WITH ASSISTANCE; CANE AND GAIT BELT. VOIDING PER TOILET, BM NOTED THIS SHIFT. PRN TYLENOL GIVEN FOR RIGHT ARM PAIN THIS AM AND PRN TIZANIDINE GIVEN THIS EVENING FOR RIGHT ARM PAIN. AT BEDSIDE.
[2020-07-21 19:20] VITALS: BP 126/63
--- NOTE | 2020-07-21 19:20 | NUR ---
AWAKENED FOR VITAL SIGNS AND REASSESSMENT. DENIES DISCOMFORT. CALL LIGHT WITHIN REACH.
--- NOTE | 2020-07-22 05:58 | NUR ---
RESTED QUIETLY. INCONTINENT OF URINE X ONE REQUIRING A TOTAL BED CHANGE. JOURDAN CARE GIVEN. REFUSES TO KEEP GOWN ON. SLEEPS NAKED. UP TO THE BEDSIDE COMMODE THIS MORNING WITH MOD ASSIST OF TWO, GAITBELT, QUAD CANE TO VOID. UNSTEADY. HOURLY ROUNDING IN PROGRESS.
[2020-07-22 07:50] VITALS: BP 142/79
--- NOTE | 2020-07-22 16:46 | NUR ---
PATIENT UP TO CHAIR THIS AM AND AFTERNOON FOR MEALS. AT BEDSIDE THIS SHIFT. PRN TYLENOL AND TIZANIDINE GIVEN FOR SHOULDER PAIN AND HEADACHE. PATIENT UP WITH ASSISTANCE; GAIT BELT AND CANE TO BATHROOM. BM NOTED THIS SHIFT.
[2020-07-22 19:55] VITALS: BP 133/76
--- NOTE | 2020-07-22 19:55 | NUR ---
RESTING QUIETLY IN BED. INCONTINENT OF URINE REQUIRING A TOTAL BED CHANGE. JOURDAN CARE GIVEN. FUSSY, IRRITABLE, CHILDISH AND ARGUMENATIVE. UNMOTIVATED TO ASSIST WITH TURNING SIDE TO SIDE TO AID IN CHANGING THE SHEETS. BECAME IRATE THAT THE TOP SHEET WASN'T PROPERLY PLACED TO HER LIKING. CALL LIGHT WITHIN REACH. DENIES NEED FOR PAIN MEDICATION.
--- NOTE | 2020-07-23 05:33 | NUR ---
UP X ONE DURING THE NIGHT TO THE BEDSIDE COMMODE TO VOID. TRANSFERS WTIH MOD ASSIST OF 2 FOR SAFETY. HOURLY ROUNDING IN PROGRESS.
[2020-07-23 07:58] VITALS: BP 149/80
--- NOTE | 2020-07-23 17:21 | NUR ---
CM SPOKE TO THE PT AND HER SPOUSE TO DISCUSS ANY QUESTIONS OR CONCERNS THAT THEY MAY HAVE FOR THIS WEEKS MEETING. PT AND SPOUSE HAVE NO QUESTIONS OR CONCERNS AT THIS TIME. CM WILL F/U WITH PT AND HER SPOUSE AFTER THIS WEEKS MEETING.
--- NOTE | 2020-07-23 19:20 | NUR ---
RESTING QUIETLY IN BED. DENIES DISCOMFORT. CALL LIGHT WITHIN REACH. NAKED BUT IS COVERED WITH A BLANKET. REFUSES TO WEAR A GOWN.
[2020-07-23 19:25] VITALS: BP 131/67
--- NOTE | 2020-07-24 05:16 | NUR ---
IN CONTINENT X ONE DURING THE NIGHT REQUIRING A TOTAL BED CHANGE. JOURDAN CARE GIVEN. HOURLY ROUNDING IN PROGRESS.
[2020-07-24 08:00] VITALS: BP 148/70
--- NOTE | 2020-07-24 14:19 | NUR ---
AM ASSESSMENT AND VITAL SIGNS COMPLETED DOCUMENTED. PT SONTINUES TO WORK WIT PT, OT AND ST. PT IS AMBULATORY WITH THE BATHROOM WITH A QUAD CANE OR WALKER AND ASSIST OF ONE. PT CONTINUES TO BE UNSTEADY AND NEEDS FREQUENT REDIRECTION WITH WALKING AIDE. PT HAD A VIDEO SWALLOW TODAY AND REMAINS ON A REGULAR DIET WITH THIN LIQUIDS. FALL PRECAUTIONS AND HOURLY ROUNDING CONTINUE.
[2020-07-24 20:00] VITALS: BP 158/93
[2020-07-25 04:48] LABS: HEMATOCRIT 36.2 % (37.0-47.0); HEMOGLOBIN 11.9 gm/dL (12.0-15.0); MCH 29.5 pg (26.0-34.0); MCHC 32.9 g/dL (28.0-37.0); MCV 89.9 fL (80.0-100.0); MPV 7.4 fl. (7.2-11.1); RBC 4.02 mil/uL (4.20-5.00); RDW-CV 15.8 % (10.5-14.5); WBC 7.3 thou/uL (4.0-11.0)
[2020-07-25 05:25] LABS: CALCIUM 9.3 mg/dL (8.5-10.1); CREATININE 0.7 mg/dL (0.6-1.3); POTASSIUM 3.2 mmol/L (3.5-5.1)
--- NOTE | 2020-07-25 06:48 | NUR ---
ASSUMED PT CARE AT 1930. ASSESSMENT COMPLETED CHARTED. ABLE TO MAKE NEEDS KNOWN. UP WITH 1 ASSIST AND WALKER. C/O DOUBLE VISION. RESTING IN BED MOST OF THE NIGHT AND CONTINENT OF BOWEL AND BLADDER. WILL CONTINUE TO MONITOR.
[2020-07-25 08:00] VITALS: BP 127/71
--- NOTE | 2020-07-25 19:07 | NUR ---
ASSESSMENT COMPLETED DOCUMENTED. CONCERNS VOICED FROM IF [employer] IS WORKING EFFECTIVELY FOR PATIENT DUE TO HER CONTINUED SADNESS AND CRYING IN ADDITION TO SLEEPING MORE. ORDER REC'D FOR TELEPSYCH EVAL. THIS NURSE CALLED IN AND SPOKE TO NACHO FROM [employer]LE[employer]YCH SERVICES AND SCHEDULED AN APPT IN THE AM FOR [id number] WITH PRESENT. CALLED MELISSA AND NOTIFIED PATIENT WELL.,
--- NOTE | 2020-07-25 19:40 | NUR ---
RESTING QUIETLY IN BED. JUST AMBULATED TO THE BATHROOM WITH WALKER, GAITBELT, STANDBY TO VOID. GAIT UNSTEADY. STUBBORN ABOUT LISTENING TO CUES. CALL LIGHT WITHIN REACH. DENIES NEED FOR PAIN MEDICINE.
[2020-07-25 20:09] VITALS: BP 135/78
--- NOTE | 2020-07-26 05:04 | NUR ---
RESTED ON/OFF. HOURLY ROUNDING IN PROGRESS.
[2020-07-26 08:00] VITALS: BP 130/71
--- NOTE | 2020-07-26 10:10 | NUR ---
TEAM [facility]FRENCE MEETING HELD YESTERDAY. PT AND SPOUSE INFORMED OF THE MEETING AND PLAN TO HAVE THE PT REMAIN ON THE UNIT TO CONTINUE THERAPIES FOR ANOTHER WEEK. PT AND SPOUSE IN AGREEMENT WITH THE PLAN. PT PROGRESSING TOWARDS GOALS, BUT BARRIERS ARE IMPULSIVITY, IMPAIRED COORDINATION, DECREASED BALANCE, SAFETY AWARENESS, AND RIGHT HAND AWARENESS. CM WILL REMAIN AVAILABLE TO ASSIST AND FOLLOW NEEDED.
[2020-07-26 20:09] VITALS: BP 152/79
--- NOTE | 2020-07-27 05:10 | NUR ---
ASSUMED PT CARE AT 1930. PT ALERT AND ORIENTED X4, POLITE AND COOPERATIVE WITH CARES. WEAKNESS IN RIGHT ARM. PT TOOK EVENING MEDS WHOLE WITH APPLESAUCE FOLLOWED BY WATER. UP TO BSC WITH GAIT BELT AND WALKER X2 TO VOID. PT SLEPT WELL OVERNIGHT. NO C/O PAIN. USES CALL LIGHT APPROPRIATELY. CALL LIGHT IN REACH, BED ALARM ON FOR SAFETY. HOURLY ROUNDING IN PROGRESS, WILL CONTINUE TO MONITOR.
[2020-07-27 07:47] VITALS: BP 126/63
--- NOTE | 2020-07-27 10:06 | NUR ---
I have reviewed the documentation by THOMAS JORDAN from 07/23/20 to 07/27/20 and I concur with it. TASIA JAVIER
--- NOTE | 2020-07-27 18:14 | NUR ---
ASSESSMENT COMPLETED DOCUMENTED THIS MORNING. HAS BEEN PARTICIPATING WITH THERAPY AND PROGRESSING WELL. ONE INCONT STOOL THIS AFTERNOON, PATIENT STATED "IT JUST HAPPENED SO FAST." 2MG TIZANIDINE THIS AFTERNOON FOR C/O RIGHT ARM "TIGHT AND HURTS." NO CHANGES IN CONDITION OR ISSUES.
[2020-07-27 21:25] VITALS: BP 148/76
--- NOTE | 2020-07-28 04:56 | NUR ---
ASSUMED PT CARE AT 1930. PT ALERT AND ORIENTED X4, POLITE AND COOPERATIVE WITH CARES. TAKES PILLS WHOLE IN APPLESAUCE FOLLOWED BY WATER. PT UP WITH GAITBELT AND WALKER AT BEGINNING OF SHIFT FOR LARGE, LIQUID STOOL. SLEPT WELL OVERNIGHT. DENIES PAIN. USES CALL LIGHT APPROPRIATELY. CALL LIGHT IN REACH, BED ALARM ON FOR SAFETY. HOURLY ROUNDING IN PROGRESS, WILL CONTINUE TO MONITOR.
[2020-07-28 08:03] VITALS: BP 134/74
--- NOTE | 2020-07-28 16:46 | NUR ---
ALERT AND ORIENTED X4. UP WITH 1 ASSIST, GAIT BELT AND WALKER. DENIES NEED FOR PAIN MEDICATION. CONTINUES TO HAVE RIGHT SIDED WEAKNESS. CONTINENT OF BOWEL AND BLADDER. USES CALL LIGHT FOR ASSIST. BED AND CHAIR ALARM USED. FALL PRECAUTIONS IN PLACE.
[2020-07-28 19:00] VITALS: BP 121/66
--- NOTE | 2020-07-29 05:02 | NUR ---
ASSUMED PT CARE AT 1930. PT ALERT AND ORIENTED X4, POLITE AND COOPERATIVE WITH CARES. DENIES PAIN. UP TO BATHROOM WITH ASSIST OF ONE, GAIT BELT AND WALKER. CONTINENT OVERNIGHT, NO STOOL THIS SHIFT. RIGHT SIDED WEAKNESS. USES CALL LIGHT APPROPRIATELY. CALL LIGHT IN REACH, BED ALARM ON FOR SAFETY. HOURLY ROUNDING IN PROGRESS, WILL CONTINUE TO MONITOR.
[2020-07-29 09:08] VITALS: BP 147/78
--- NOTE | 2020-07-29 16:48 | NUR ---
ALERT AND ORIENTED X4. ABLE TO LET WANTS AND NEEDS BE KNOWN. UP WITH 1 ASSIST, GAIT BELT AND WALKER TO BATHROOM. CONTINENT OF BOWEL AND BLADDER. PO PAIN MEDICATION GIVEN TO HELP WITH PAIN. TAKES PILLS WHOLE WITHOUT DIFFICULTY. USES CALL LIGHT FOR ASSIST. FALL PRECAUTIONS IN PLACE, BED ALARM AND CHAIR ALARM USED.
[2020-07-29 20:00] VITALS: BP 141/85
[2020-07-30 04:43] LABS: CALCIUM 8.8 mg/dL (8.5-10.1); CREATININE 0.8 mg/dL (0.6-1.3); HEMATOCRIT 37.3 % (37.0-47.0); MCHC 32.3 g/dL (28.0-37.0); MCV 89.9 fL (80.0-100.0); MPV 7.3 fl. (7.2-11.1); POTASSIUM 3.7 mmol/L (3.5-5.1); RBC 4.15 mil/uL (4.20-5.00); RDW-CV 15.8 % (10.5-14.5); WBC 8.7 thou/uL (4.0-11.0)
--- NOTE | 2020-07-30 05:45 | NUR ---
ASSUMED CARES AT 1920. ALERT AND ORIENTED. PLEASANT. DENIED ANY NEED FOR PAIN MEDS. MIN ASSIST WITH GAIT BELT AND WALKER. UP TO BATHROOM X 2. SLEPT WELL. CALL LIGHT IN REACH AND BED ALARM ON.
[2020-07-30 07:45] VITALS: BP 132/76; BP 138/62
--- NOTE | 2020-07-30 16:56 | NUR ---
ALERT AND ORIENTED X4. UP WITH 1 ASSIST, GAIT BELT AND WALKER. PO PAIN MEDICATION GIVEN FOR RIGHT SHOULDER PAIN. ABLE TO LET WANTS AND NEEDS BE KNOWN. CONTINENT OF BOWEL AND BLADDER. USES CALL LIGHT FOR ASSIST. FALL PRECAUTIONS IN PLACE. BED ALARM AND CHAIR ALARM USED.
[2020-07-30 19:00] VITALS: BP 109/62
--- NOTE | 2020-07-31 04:58 | NUR ---
ASSUMED PT CARE AT 1930. PT ALERT AND ORIENTED X4, POLITE AND COOPERATIVE WITH CARES. PT DENIED NEED FOR PAIN MEDS. UP TO BATHROOM WITH ASSIST OF 1, GAIT BELT AND WALKER. USED CALL LIGHT APPROPRIATELY. SLEPT WELL OVERNIGHT. CALL LIGHT IN REACH, BED ALARM ON FOR SAFETY. HOURLY ROUNDING IN PROGRESS, WILL CONTINUE TO MONITOR.
[2020-07-31 08:00] VITALS: BP 142/76
--- NOTE | 2020-07-31 12:51 | NUR ---
CM SPOKE TO THE PT AND HER SPOUSE TO DISCUSS ANY QUESTIONS OR CONCERNS THAT THEY MAY HAVE FOR TOMORROWS TEAM CONFRENCE MEETING. PT AND HER SPOUSE HAVE NO QUESTIONS OR CONCERNS AT THIS TIME. CM WILL REMAIN AVAILABLE TO ASSIST AND FOLLOW NEEDED.
[2020-07-31 19:00] VITALS: BP 112/63
[2020-08-01 04:30] LABS: HEMOGLOBIN 12.1 gm/dL (12.0-15.0); MCH 29.5 pg (26.0-34.0); MCHC 32.8 g/dL (28.0-37.0); MCV 89.8 fL (80.0-100.0); MPV 7.5 fl. (7.2-11.1); RBC 4.11 mil/uL (4.20-5.00); RDW-CV 15.2 % (10.5-14.5); WBC 8.1 thou/uL (4.0-11.0)
[2020-08-01 04:40] LABS: CALCIUM 9.3 mg/dL (8.5-10.1); CREATININE 0.8 mg/dL (0.6-1.3); POTASSIUM 3.4 mmol/L (3.5-5.1)
--- NOTE | 2020-08-01 04:55 | NUR ---
ASSUMED PT CARE AT 1930. PT ALERT AND ORIENTED X4, POLITE AND COOPERATIVE WITH CARES. PT DENIED NEED FOR PAIN MEDS. UP TO BATHROOM WITH ASSIST OF 1, GAIT BELT AND WALKER. PT SLEPT WELL OVERNIGHT. USED CALL LIGHT APPROPRIATELY. NO STOOL THIS SHIFT. CALL LIGHT IN REACH, BED ALARM ON FOR SAFETY. HOURLY ROUNDING IN PROGRESS, WILL CONTINUE TO MONITOR.
[2020-08-01 07:43] VITALS: BP 125/57
--- NOTE | 2020-08-01 16:57 | NUR ---
AM ASSESSMENT AND VITAL SIGNS COMPLETED DOCUMENTED. PT WORKED WITH OT, PT AND ST. NO C/O PAIN OR DISCOMFORT THIS SHIFT. PT IS MIN ASSIST OR SUPERVISION WITH MOST TASKS BUT CONTINUES TO REQUIRE CONTACT GUARD FOR BALANCE. FALL PRECAUTIONS AND HOURLY ROUNDING CONTINUE.
[2020-08-01 19:00] VITALS: BP 115/70
--- NOTE | 2020-08-02 05:15 | NUR ---
ASSUMED CARES AT 1920. ALERT AND ORIENTED. PLEASANT. DENIED ANY NEED FOR PAIN MEDS. SBA WITH GAIT BELT AND WALKER. UP TO BATHROOM. SLEPT MOST OF THE NIGHT. NO ISSUES. CALL LIGHT IN REACH AND BED ALARM ON.
--- NOTE | 2020-08-02 16:18 | NUR ---
TEAM CONFRENCE MEETING HELD YESTERDAY. CM AND PHYSICIAN INFORMED PT AND SPOUSE OF THE MEETING AND PLAN TO RE-TEAM PT AND CONTINUE THERAPIES FOR ANOTHER WEEK. PT AND SPOUSE IN AGREEMENT. PT PROGRESSING TOWARDS GOALS, BUT BARRIERS ARE BALANCE, COORDINATION, ATAXIC GAIT PATTERN, AND IMPULSIVITY. CM WILL REMAIN AVAILABLE TO ASSIST AND FOLLOW NEEDED.
--- NOTE | 2020-08-02 16:55 | NUR ---
PT A&Ox4. VITALS STABLE. ON RA. UP WITH 1 MIN ASSIST USING GAIT BELT AND WALKER. TOLERATING MEALS. COMPLAINED OF A HEADACHE, PARTIALLY CONTROLLED WITH MUSCLE RELAXER. TAKES PILLS WELL, BIG ONES TAKEN WITH APPLESAUCE. PT IMPULSIVE AT TIMES. IN TO VISIT TODAY. FALL PRECAUTIONS IN PLACE. CALL LIGHT WITHIN REACH. WILL CONTINUE TO MONITOR.
[2020-08-02 20:00] VITALS: BP 108/55
--- NOTE | 2020-08-03 05:00 | NUR ---
ASSUMED CARES AT 1920. ALERT AND ORIENTED. PLEASANT. DENIED ANY PAIN. SBA WITH GAIT BELT AND WALKER. UP TO BATHROOM. NO ISSUES OVERNIGHT. SLEPT OFF AND ON. CALL LIGHT IN REACH AND BED ALARM ON.
[2020-08-03 05:13] LABS: HEMOGLOBIN 11.8 gm/dL (12.0-15.0); MCH 29.5 pg (26.0-34.0); MCHC 32.9 g/dL (28.0-37.0); MCV 89.8 fL (80.0-100.0); MPV 7.5 fl. (7.2-11.1); RBC 4.01 mil/uL (4.20-5.00); RDW-CV 15.3 % (10.5-14.5); WBC 8.1 thou/uL (4.0-11.0)
[2020-08-03 05:55] LABS: CALCIUM 9.1 mg/dL (8.5-10.1); CREATININE 0.7 mg/dL (0.6-1.3); POTASSIUM 3.9 mmol/L (3.5-5.1)
[2020-08-03 07:45] VITALS: BP 139/83
--- NOTE | 2020-08-03 10:34 | NUR ---
I have reviewed the documentation by THOMAS JORDAN from 07/31/20 to 08/03/20 and I concur with it. TASIA JAVIER
--- NOTE | 2020-08-03 16:06 | NUR ---
ALERT AND ORIENTED X4. UP WITH 1 ASSIST, GAIT BELT AND WALKER. HAS RIGHT SIDED WEAKNESS. USES PO PAIN MEDICATION TO HELP WITH RIGHT SHOULDER PAIN. CONTINENT OF BOWEL AND BLADDER. TAKES PILLS WHOLE WITHOUT DIFFICULTY. USES CALL LIGHT FOR ASSIST. FALL PRECAUTIONS IN PLACE. BED ALARM AND CHAIR ALARM USED.
--- NOTE | 2020-08-03 19:45 | NUR ---
RESTING QUIETLY IN BED. DENIES NEED FOR ZANAFLEX OR TYLENOL. STATES NOT HURTING. CALL LIGHT WITHIN REACH.
[2020-08-03 19:50] VITALS: BP 137/67
--- NOTE | 2020-08-04 05:19 | NUR ---
RESTED ON/OFF. GAVE ZANAFLEX AT 0045 FOR RIGHT ARM DISCOMFORT WITH RELIEF. SLEPT SOUNDLY FOR A FEW HOURS. UP X TWO DURING THE NIGHT TO THE BATHROOM TO VOID. HOURLY ROUNDING IN PROGRESS.
[2020-08-04 08:00] VITALS: BP 142/75
[2020-08-04 20:15] VITALS: BP 148/88
--- NOTE | 2020-08-05 04:50 | NUR ---
ASSUMED PT CARE AT 1930. PT ALERT AND ORIENTED X4, POLITE AND COOPERATIVE WITH CARES. PT REQUESTED ZANAFLEX WITH HS MEDS. PT UP TO BATHROOM TO VOID X2 WITH ASSIST OF ONE, GAIT BELT AND WALKER. NO STOOL THIS SHIFT. PT TOOK PILLS WHOLE IN APPLESAUCE WITHOUT DIFFICULTY. USES CALL LIGHT APPROPRIATELY. CALL LIGHT IN REACH, BED ALARM ON FOR SAFETY. HOURLY ROUNDING IN PROGRESS, WILL CONTINUE TO MONITOR.
[2020-08-05 07:47] VITALS: BP 136/72
--- NOTE | 2020-08-05 18:28 | NUR ---
AM ASSESSMENT AND VITAL SIGNS COMPLETED DOCUMENTED. PT ENCOURAGED TO USE AN EYE PATCH TO DECREASE DOUBLE VISION, ALSO ENCOURAGED TO ALTERNATE EYES. PT'S PROVIDED WITH INFORMATION ON THE WHOLE PERSON SO HE CAN START PLANNING FOR DISCHARGE. FALL PRECAUTIONS AND HOURLY ROUNDING CONTINUE.
[2020-08-05 20:00] VITALS: BP 140/75
--- NOTE | 2020-08-06 04:51 | NUR ---
ASSUMED PT CARE AT 1930. PT ALERT AND ORIENTED X4, POLITE AND COOPERATIVE WITH CARES. PRN ZANAFLEX WITH EVENING MEDS PER PT REQUEST. TOOK PILLS WHOLE IN APPLESAUCE WITHOUT DIFFICULTY. SLEPT WELL OVERNIGHT. UP TO BAHTHROOM TO VOID WITH GAIT BELT AND WALKER. PT NEEDS CUEING TO PLACE HER RIGHT HAND ON WALKER AND TO SLOW DOWN WHEN TURNING INTO THE BATHROOM. CALL LIGHT IN REACH, BED ALARM ON FOR SAFETY. HOURLY ROUNDING IN PROGRESS, WILL CONTINUE TO MONITOR.
[2020-08-06 07:30] VITALS: BP 150/80
--- NOTE | 2020-08-06 17:09 | NUR ---
ALERT AND ORIENTED X4. UP WITH 1 ASSIST, GAIT BELT AND WALKER TO BATHROOM. HAS RIGHT SIDED WEAKNESS. CONTINENT OF BOWEL AND BLADDER. USING PO PAIN MEDICATION TO HELP WITH PAIN. WEARING EYE PATCH OFF AND ON TODAY TO HELP WITH DOUBLE VISION. USES CALL LIGHT FOR ASSIST. FALL PRECAUTIONS IN PLACE. BED ALARM AND CHAIR ALARM USED.
[2020-08-06 19:00] VITALS: BP 108/55
--- NOTE | 2020-08-07 05:20 | NUR ---
ASSUMED PT CARE AT 1930. PT ALERT AND ORIENTED X4, POLITE AND COOPERATIVE WITH CARES. PRN ZANAFLEX AT HS PER PT REQUEST. UP TO BATHROOM TO VOID WITH ASSIST OF 1, GAIT BELT AND WALKER. RIGHT SIDED WEAKNESS. SLEPT WELL OVERNIGHT. USES CALL LIGHT APPROPRIATELY. CALL LIGHT IN REACH, BED ALARM ON FOR SAFETY. HOURLY ROUNDING IN PROGRESS, WILL CONTINUE TO MONITOR.
[2020-08-07 07:30] VITALS: BP 134/75
--- NOTE | 2020-08-07 13:09 | NUR ---
[facility] can accept Pt for admission, starting next week.
--- NOTE | 2020-08-07 16:29 | NUR ---
ALERT AND ORIENTED X4. UP WITH 1 ASSIST, GAIT BELT AND WALKER TO BATHROOM. CONTINENT OF BOWEL AND BLADDER. TAKES PO PAIN MEDICATION TO HELP WITH RIGHT SHOULDER AND HEADACHE PAIN. WEARING EYE PATCH OFF AND ON TODAY. HAS RIGHT SIDED WEAKNESS. USES CALL LIGHT FOR ASSIST. FALL PRECAUTIONS IN PLACE. BED ALARM AND CHAIR ALARM USED.
[2020-08-07 19:00] VITALS: BP 120/67
[2020-08-08 04:49] LABS: HEMATOCRIT 38.4 % (37.0-47.0); HEMOGLOBIN 12.5 gm/dL (12.0-15.0); MCHC 32.4 g/dL (28.0-37.0); MCV 89.3 fL (80.0-100.0); MPV 7.5 fl. (7.2-11.1); RBC 4.3 mil/uL (4.20-5.00); WBC 8.4 thou/uL (4.0-11.0)
[2020-08-08 05:00] LABS: CALCIUM 9.6 mg/dL (8.5-10.1); CREATININE 0.8 mg/dL (0.6-1.3); POTASSIUM 3.8 mmol/L (3.5-5.1)
--- NOTE | 2020-08-08 05:09 | NUR ---
ASSUMED CARES AT 1920. ALERT AND ORIENTED. PLEASANT. TIZANIDINE GIVEN FOR RIGHT SHOULDER PAIN. SBA WITH WALKER UP TO BATHROOM. SLEPT MOST OF THE NIGHT. CALL LIGHT IN REACH AND BED ALARM ON.
[2020-08-08 08:00] VITALS: BP 146/83
[2020-08-08 19:55] VITALS: BP 148/85
[2020-08-08 21:40] VITALS: BP 173/92
[2020-08-08 21:55] VITALS: BP 147/82
[2020-08-09 04:56] LABS: TROPONIN-I LEVEL <0.06 ng/mL (<0.06)
--- NOTE | 2020-08-09 05:40 | NUR ---
ASSUMED CARES AT 1919. ALERT AND ORIENTED. PLEASANT. MIN ASSIST WITH GAIT BELT AND WALKER. UP TO BATHROOM. AT 2129, PT HAD EPISODE OF CHEST PAIN, NAUSEA SOA AND DIZZINESS. EKG COMPLETED. NITRO GIVEN WITH NO RELIEF. PAGED DR GREWAL. NEW ORDERS FOR CPK AND TROPONIN AND GI COCKTAIL. LABS DRAWN WERE NORMAL. GI COCKTAIL GIVEN AND PT STATED SHE FELT BETTER. SLEPT REST OF THE NIGHT. NO FURTHER ISSUES. CALL LIGHT IN REACH AND BED ALARM ON.
[2020-08-09 08:00] VITALS: BP 150/80
--- NOTE | 2020-08-09 09:44 | EKG ---
[place] [address] ELECTROCARDIOGRAM REPORT Name: EVERETT BHATT Room: [address] ADM IN ..#: [id number] Admission: 06/06/20 Attend Phys: Bobo Alston MD Discharge: Date of : 75 Date of Service: 08/08/20 2144 Report #: [id number] THIS REPORT FOR: //name// [facility] Test Date: 2020-08-08 Test Time: 21:44:16 Pat Name: VEERETT BHATT Department: Room: [address] Gender: F Cold Reduction Roller: TRINH : 1975 Requested By: Demario Diaz Order Number: [id number] Reading MD: Fercho Noyola Measurements Intervals [place] Rate: 82 P: 49 NM: 211 QRS: 27 QRSD: 93 T: 43 QT: 386 QTc: 451 Interpretive Statements Sinus rhythm Prolonged NM interval Baseline wander in lead(s) V6 Compared to ECG 05/02/2020 10:42:34 First degree AV block now present Electronically Signed On 08-09-2020 9:44:37 EMBLEM MAKER by Fercho Noyola [email or web address] <ELECTRONICALLY SIGNED> By: Fercho Noyola MD, FAC 08/09/20 0944 43 43 Fercho Noyola MD, [facility] /EPI
[2020-08-09 20:00] VITALS: BP 155/89
--- NOTE | 2020-08-10 05:01 | NUR ---
ASSUMED PT CARE AT 1930. PT ALERT AND ORIENTED X4, POLITE AND COOPERATIVE WITH CARES. DENIES PAIN. PT UP WITH ASSIST OF 1, GAIT BELT AND WALKER TO BATHROOM TO VOID. USES CALL LIGHT APPROPRIATELY. CALL LIGHT IN REACH, BED ALARM ON FOR SAFETY. HOURLY ROUNDING IN PROGRESS, WILL CONTINUE TO MONITOR.
[2020-08-10 07:36] VITALS: BP 146/71
[2020-08-10 09:00] VITALS: BP 141/75
--- NOTE | 2020-08-10 09:31 | NUR ---
I have reviewed the documentation by THOMAS JORDAN from 08/06/20 to 08/10/20 and I concur with it. TASIA JAVIER
--- NOTE | 2020-08-10 14:21 | NUR ---
TEAM CONFRENCE MEETING HELD THURSDAY, CM AND PHYSICIAN SPOKE TO THE PT AND HER SPOUSE TO INFORM OF THE MEETING AND PLAN TO TENTIVELY D/C PT HOME WITH 05/01 SUPERVISION AND SUPPORT NEXT THURSDAY AFTER TEAM, AND ARRANGE OUTPATIENT PT/OT/ST WITH [facility]. PT AND SPOUSE IN AGREEMENT WITH THE PLAN. PT PROGRESSING TOWARDS GOALS, BUT BARRIERS ARE VISUAL NEGELECTM DECREASED BALANCE, WIDE-BASE WALKING, AND DECRESED REACTION TIME. CM WILL REMAIN AVAILABLE TO ASSIST AND FOLLOW NEEDED.
--- NOTE | 2020-08-10 16:07 | NUR ---
PT WORKED WITH THERAPIES. PT MOTHER HERE THROUGHOUT THE DAY FOR FAMILY TRAINING. MOTHER MAY ASSIST PT WITH CARES LONG NURSING IS SUPERVISING. HERE TO VISIT AND WILL COME BACK THIS EVENING TO SPEND THE NIGHT. PT UP WITH TOUCH ASSIST, GAIT BELT, AND WALKER.
[2020-08-10 20:00] VITALS: BP 141/75
--- NOTE | 2020-08-11 06:30 | NUR ---
ASSUMED PT CARE AT 1930. ASSESSMENT COMPLETED CHARTED. ABLE TO MAKE NEEDS KNOWN. UP WITH 1 ASSIST TO BATHROOM, AT TIMES WITH 'S HELP. EDUCATED ON NEED TO STILL LET STAFF KNOW WHEN PT GETS UP TO HELP, CAUGHT ONCE TURNING OFF PT BED ALARM. PT AND RESTING IN SEPERATE BEDS MOST OF THE NIGHT. NO C/O PAIN OR DISCOMFORT NOTED. WILL CONTINUE TO MONITOR.
[2020-08-11 08:11] VITALS: BP 132/78
--- NOTE | 2020-08-11 16:19 | NUR ---
PT WORKED WITH THERAPIES. PRN PAIN MEDICATION GIVEN PER PT REQUEST. UP WITH STB ASSIST, WALKER, AND GAIT BELT. HERE TO VISIT. WILL BE BACK TO SPEND THE NIGHT.
[2020-08-11 20:00] VITALS: BP 140/80
--- NOTE | 2020-08-12 05:03 | NUR ---
ASSUMED CARE AT 1920. ALERT AND ORIENTED. PLEASANT. DENIED ANY NEED FOR PAIN MEDS. MIN ASSIST WITH GAIT BELT AND WALKER. UP TO BATHROOM. ARRIVED AT 2200 TO STAY OVERNIGHT. HE ASSISTED PT UP TO BATHROOM WITH GAIT BELT AND WALKER. NO UNSAFE BEHAVIORS NOTED. PT SLEPT MOST OF THE NIGHT. CALL LIGHT IN REACH.
[2020-08-12 07:36] VITALS: BP 139/85
--- NOTE | 2020-08-12 16:39 | NUR ---
PT UP WITH GAIT BELT, WALKER, AND MIN ASSIST. REQUIRED ASSISTANCE GETTING OFF OF THE TOILOT. HERE TODAY.
[2020-08-12 20:00] VITALS: BP 130/67
--- NOTE | 2020-08-13 04:52 | NUR ---
ASSUMED CARES AT 1920. ALERT AND ORIENTED. PLEASANT. DENIED ANY NEED FOR PAIN MEDS. MIN ASSIST WITH GAIT BELT AND WALKER. UP TO BATHROOM X 2. SLEPT MOST OF THE NIGHT WITHOUT ISSUES. CALL LIGHT IN REACH AND BED ALARM ON.
[2020-08-13 08:15] VITALS: BP 130/66
--- NOTE | 2020-08-13 17:39 | NUR ---
ALERT AND ORIENTED X4. UP WITH 1 ASSIST, GAIT BELT AND WALKER. CONTINENT OF BOWEL AND BLADDER. DENIES NEED FOR PAIN MEDICATION TODAY. TOOK PILLS WHOLE WITHOUT DIFFICULTY. USES CALL LIGHT FOR ASSIST. FALL PRECAUTIONS IN PLACE. BED ALARM AND CHAIR ALARM USED.
[2020-08-13 20:00] VITALS: BP 113/68
--- NOTE | 2020-08-14 05:09 | NUR ---
ASSUMED CARES AT 1920. ALERT AND ORIENTED. PLEASANT. DENIED ANY PAIN. MIN ASSIST WITH GAIT BELT AND WALKER. UP TO BATHROOM. NO ISSUES OVERNIGHT. CALL LIGHT IN REACH AND BED ALARM ON.
[2020-08-14 08:00] VITALS: BP 139/76
--- NOTE | 2020-08-14 16:30 | NUR ---
CM SPOKE TO THE PT AND HER SPOUSE TO DISCUSS ANY QUESTIONS OR CONCERNS THAT THEY MAY HAVE FOR TOMORROWS TEAM CONFRENCE MEETING. PT INFORMS OF CONCERN ABOUT DME, AND MEDICATIONS AT D/C. CM IFORMED PT THAT PT'S INSURANCE HAD APPROVED WALKER AND 3-IN-1 COMMODE, BUT HAD DENIED TRANSFER TUB BENCH AND WHEELCHAIR. CM ALSO INFORMED THAT NURSING WILL ADDRESS PT'S MEDICATIONS PRIOR TO D/C. CM WILL REMAIN AVAILABLE TO ASSIST AND FOLLOW NEEDED.
--- NOTE | 2020-08-14 16:41 | NUR ---
ALERT AND ORIENTED X4. UP WITH STAND BY ASSIST, GALT BELT AND WALKER. HAS RIGHT SIDED WEAKNESS. CONTINENT OF BOWEL AND BLADDER. NO C/O PAIN. TAKING PILLS WHOLE WITHOUT DIFFICULTY. USES CALL LIGHT FOR ASSIST. FALL PRECAUTIONS IN PLACE. BED ALARM AND CHAIR ALARM USED.
[2020-08-14 19:00] VITALS: BP 136/76
[2020-08-15 05:10] LABS: HEMATOCRIT 36.3 % (37.0-47.0); HEMOGLOBIN 11.9 gm/dL (12.0-15.0); MCH 29.2 pg (26.0-34.0); MCHC 32.8 g/dL (28.0-37.0); MCV 89.1 fL (80.0-100.0); MPV 7.5 fl. (7.2-11.1); RBC 4.07 mil/uL (4.20-5.00); RDW-CV 14.6 % (10.5-14.5); WBC 8.1 thou/uL (4.0-11.0)
--- NOTE | 2020-08-15 05:14 | NUR ---
ASSUMED PT CARE AT 1930. PT ALERT AND ORIENTED X4, POLITE AND COOPERATIVE WITH CARES. DENIES PAIN. TOOK PILLS WHOLE WITHOUT DIFFICULTY. SLEPT WELL OVERNIGHT. UP TO BATHROOM WITH SBA, GAIT BELT AND WALKER. RIGHT SIDED WEAKNESS. USES CALL LIGHT APPROPRIATELY. CALL LIGHT IN REACH, BED ALARM ON FOR SAFETY. HOURLY ROUNDING IN PROGRESS, WILL CONTINUE TO MONITOR.
[2020-08-15 05:29] LABS: CALCIUM 9.4 mg/dL (8.5-10.1); CREATININE 0.8 mg/dL (0.6-1.3); POTASSIUM 3.5 mmol/L (3.5-5.1)
[2020-08-15 08:00] VITALS: BP 139/75
[2020-08-15] MEDS ORDERED: ZANAFLEX4 MG PO (08:08)
[2020-08-15] MEDS ORDERED: NEXIUM40 MG PO (08:08)
[2020-08-15] MEDS ORDERED: IPRAT-ALBUT 0.5-3 ML INH (08:08)
[2020-08-15] MEDS ORDERED: ELIQUIS5 MG PO (08:08)
[2020-08-15] MEDS ORDERED: ZOLOFT 50 MG TA50 MG PO (08:08)
[2020-08-15] MEDS ORDERED: LOPRESSOR50 PO (08:08)
[2020-08-15] MEDS ORDERED: LIPITOR 40 MG T40 M1 PO (08:08)
[2020-08-15] MEDS ORDERED: LOSARTAN-HCTZ1 EAC3 PO (08:08)
[2020-08-15 14:31] VITALS: BP 139/75
--- NOTE | 2020-08-15 15:35 | NUR ---
ASSESSMENT COMPLETED DOCUMENTED THIS MORNING. PATIENT HAPPY THAT SHE IS BEING DISCHARGED TODAY. TEAM CONFERENCE WITH DR. DING AND THERAPIES, DC ORDERS REC'D. PATIENT'S HERE THIS AFTERNOON AND HAS BEEN TAKING BELONGINGS OUT TO FAMILY TRUCK. LAST INSPECTION OF ROOM PERFORMED FOR ANY LAST ITEMS THAT MAY BE FORGOTTEN, LINING PRESSER FOUND. DC INSTRUCTIONS GIVEN, MED EDUCATION GIVEN WITH UNDERSTANDING VERBALIZED AND SIGNATURE OBTAINED FROM . NURSING ASSISTED PATIENT OUT TO FAMILY TRUCK AND TRANSFERRED INTO FRONT SEAT WITH ASSISTANCE FROM , PATIENT DID VERY WELL.
[2020-08-15 15:39] VITALS: BP 139/75
--- NOTE | 2020-08-16 14:48 | NUR ---
LATE ENTRY: TEAM CONFRENCE MEETING HELD YESTERDAY. PLAN FOR PT TO D/C HOME WITH SPOUSE AND MOTHER WITH 05/01 SUPERVISION AND ASSISTANCE. CM SPOKE TO PT AND HER SPOUSE AND THEY ARE ALL IN AGREEMENT WITH THE PLAN. PT MADE GREAT PROGRESS WITH GOALS, BUT CONTINUED BARRIERS ARE RLE ATAXIC COORDINATION, STANDINF BALANCE, VISION, SAFETY, ATTENTION, AND IMPULSIVITY. PATIENT WILL NOT HAVE HH AT D/C HER PRIMARY INSURANCE IS MEDICAID. HOWEVER PT RECIEVED APPROVAL FOR [facility] WITH [facility] FOR OUTPATIENT PT/OT/ST FOR STROKE PATIENTS. PT'S INSURANCE ([employer]ICA[employer]) ALSO APPROVED PT FOR WALKER AND 3-IN-1 COMMODE, BUT DECLINED WHEELCHAIR AND BATH BENCH. CM TO APPLY FOR EXCEPTION FOR THESE ITEMS THROUGH MEDICAID. IF APPROVED THESE ITEM WILL BE DELIVED TO PT'S HOME. PT AND SPOUSE AWARE. CM WILL REMAIN AVAILABLE TO ASSIST AND FOLLOW NEEDED.
--- NOTE | 2020-08-17 12:02 | NUR ---
I have reviewed the documentation by THOMAS JORDAN from 08/13/20 to 08/15/20 and I concur with it. TASIA JAVIER
== END 2020-08-15 15:20 | disposition home or self-care (01) | DRG 56 ==
LOC: M.REH 16:02
PROVIDERS: Internal Medicine; ADMIT Physical Medicine & Rehabilitation; ATTEND Physical Medicine & Rehabilitation
PROC: 5A09357 Assistance with Respiratory Ventilation, Less than 24 Consecutive Hours, Continuous Positive Airway Pressure (ICD-10-PCS; principal; 2020-06-08)
DX: I69.351 Hemiplegia and hemiparesis following cerebral infarction affecting right dominant side (principal); I63.9 Cerebral infarction, unspecified; G92 Toxic encephalopathy; J96.01 Acute respiratory failure with hypoxia; E43 Unspecified severe protein-calorie malnutrition; A41.89 Other specified sepsis; U07.1 COVID-19; J12.82 Pneumonia due to coronavirus disease 2019; R53.2 Functional quadriplegia; A04.72 Enterocolitis due to Clostridium difficile, not specified as recurrent; D68.59 Other primary thrombophilia; Z68.41 Body mass index [BMI] 40.0-44.9, adult; E11.65 Type 2 diabetes mellitus with hyperglycemia; K14.8 Other diseases of tongue; E66.01 Morbid (severe) obesity due to excess calories; I10 Essential (primary) hypertension; H53.2 Diplopia; J44.9 Chronic obstructive pulmonary disease, unspecified; I48.0 Paroxysmal atrial fibrillation; F03.90 Unspecified dementia, unspecified severity, without behavioral disturbance, psychotic disturbance, mood disturbance, and anxiety; E87.6 Hypokalemia; Z79.01 Long term (current) use of anticoagulants; Z79.899 Other long term (current) drug therapy; Z88.0 Allergy status to penicillin; Z88.1 Allergy status to other antibiotic agents; Z90.49 Acquired absence of other specified parts of digestive tract; Z90.710 Acquired absence of both cervix and uterus